=== PATIENT | male | born 1940 | race Caucasian/White ===

== ENCOUNTER 2017-05-17 19:38 | Inpatient (IN) | payer MEDICARE, BC ==
--- NOTE | 2017-05-17 20:29 | EDM.PDOC ---
[id number]: SOB Time Seen by Provider: 05/17/17 20:24 Source of Information: Reports: Patient History Limitations: Reports: No Limitations - History of Present Illness INITIAL COMMENTS - FREE TEXT/NARRATIVE: pt arrived with pain inhis rt chest and he is very sob. Pt had an episode of severe muscle spasm in early May and he was seen in [place]. He has gotten more sob and is not able to fill his lungs. Onset: Gradual Duration: Day(s):, Getting Worse Location: Reports: Chest Associated Symptoms: Reports: Chest Pain, Shortness of Breath Right Chest Pain Score (Numeric/FACES): 8 - Related Data Allergies Allergy/AdvReac Type Severity Reaction Status Date / Time albuterol Allergy Tachycardia Verified 05/17/17 22:43 Home Meds: Home Meds Levothyroxine [Synthroid] 125 mcg PO ASDIRECTED 08/06/14 [History] Cyclobenzaprine [Flexeril] 10 mg PO TID 05/17/17 [History] Diclofenac Potassium [Diclofenac Potassium] 50 mg PO TID 05/17/17 [History] Past Medical History HEENT History: Reports: Impaired Vision Musculoskeletal History: Reports: Arthritis Other Musculoskeletal History: hips. bulging disc back Endocrine/Metabolic History: Reports: Hypothyroidism - Infectious Disease History Infectious Disease History: Reports: Chicken Pox Social & Family History - Tobacco Use Smoking Status *Q: Former Smoker Used Tobacco, but Quit: Yes Month Tobacco Last Used: quit 50years ago Second Hand Smoke Exposure: No - Caffeine Use Caffeine Use: Reports: Coffee - Alcohol Use Days Per Week of Alcohol Use: 0 - Recreational Drug Use Recreational Drug Use: No ED ROS GENERAL - Review of Systems Review Of Systems: See Below Constitutional: Reports: Malaise, Weakness, Other (pain in rt chest) HEENT: Reports: No Symptoms Respiratory: Reports: Shortness of Breath, Pleuritic Chest Pain, Cough Cardiovascular: Reports: No Symptoms Endocrine: Reports: No Symptoms GI/Abdominal: Reports: Other (pt feels like his abdoman is distended) : Reports: No Symptoms Musculoskeletal: Reports: Other (pt had a recent severe muscle spasm on the rt side. ) Skin: Reports: No Symptoms ED EXAM, GENERAL - Physical Exam Exam: See Below Free Text/Narrative:: pt arrived with pain on the rt chest with deep breathing. He is coughing some. He has been very sob. He does not think he has had a fever. Exam Limited By: Other (desats with activity.) General Appearance: Alert, Moderate Distress Ears: Normal TMs Nose: Normal Inspection Throat/Mouth: Normal Inspection Head: Atraumatic Neck: Normal Inspection Respiratory/Chest: Decreased Breath Sounds, Crackles, Splinting Cardiovascular: Regular Rate, Rhythm GI/Abdominal: Soft, Non-Tender, Other (pt feels like his abdoman is distended. ) (Male) Exam: Deferred Rectal (Males) Exam: Deferred Extremities: Normal Inspection, Other ( trace edema) Neurological: Alert, Oriented, Normal Cognition Psychiatric: Normal Affect Course - Vital Signs Last Recorded V/S: Last Vital Signs Temp 37.2 C 05/22/17 03:12 Pulse 94 05/22/17 03:12 Resp 18 05/22/17 03:12 BP 150/81 H 05/22/17 03:12 Pulse Ox 90 L 05/22/17 03:12 - Orders/Labs/Meds Orders: Medication Orders Acetaminophen (Tylenol) 650 mg PO Q4H PRN PRN Reason: PAIN Bisacodyl (Dulcolax) 5 mg PO DAILY PRN PRN Reason: Constipation Docusate Sodium (Colace) 100 mg PO BID PRN PRN Reason: Constipation Docusate Sodium (Colace) 100 mg PO BID [facility] Last Admin: 05/21/17 20:52 Dose: Not Given Admin: 05/21/17 08:05 Dose: 100 mg Admin: 05/20/17 20:42 Dose: 100 mg Admin: 05/20/17 10:34 Dose: Admin: 05/19/17 21:34 Dose: 100 mg Admin: 05/19/17 11:50 Dose: 100 mg Guaifenesin/Codeine Phosphate (Robitussin Ac) 10 ml PO Q4H PRN PRN Reason: Cough Hydromorphone HCl (Dilaudid Footwear Sales Coordinator 15 Mg In Ns 30 Ml) 0 mg IV ASDIRECTED PRN; Protocol PRN Reason: COMMISSIONS COORDINATOR PAIN CONTROL Last Admin: 05/21/17 00:53 Dose: 15 mg Admin: 05/18/17 11:15 Dose: 15 mg Levofloxacin/Dextrose 750 mg/ (Premix) 150 mls @ 100 mls/hr IV Q24H [facility] Last Admin: 05/21/17 21:01 Dose: 100 mls/hr Infusion: 05/20/17 22:12 Dose: 100 mls/hr Admin: 05/20/17 20:42 Dose: 100 mls/hr Infusion: 05/19/17 23:03 Dose: 100 mls/hr Admin: 05/19/17 21:33 Dose: 100 mls/hr Infusion: 05/18/17 22:14 Dose: 100 mls/hr Admin: 05/18/17 20:44 Dose: 100 mls/hr Infusion: 05/17/17 23:04 Dose: 100 mls/hr Admin: 05/17/17 21:34 Dose: 100 mls/hr Dextrose/Lactated Ringer's (Dextrose 5%-Lactated Ringers) 1,000 mls @ 60 mls/ hr IV ASDIRECTED [facility] Last Admin: 05/22/17 01:07 Dose: 60 mls/hr Doxycycline Hyclate 100 mg/ (Sodium Chloride) 100 mls @ 100 mls/hr IV Q12H [facility] Last Admin: 05/21/17 22:32 Dose: 100 mls/hr Admin: 05/21/17 11:02 Dose: 100 mls/hr Levothyroxine Sodium 100 mcg/ (Levothyroxine Sodium 25 mcg) 125 mcg PO DAILY@ 0730 [facility] Last Admin: 05/21/17 08:05 Dose: 125 mcg Admin: 05/20/17 10:34 Dose: Admin: 05/19/17 11:43 Dose: 125 mcg Lorazepam (Ativan) 1 mg IV Q6H PRN PRN Reason: Nausea/Vomiting Magnesium Hydroxide (Milk Of Magnesia) 30 ml PO BID PRN PRN Reason: Constipation Morphine Sulfate (Morphine) 2 mg IVPUSH Q2H PRN PRN Reason: Pain (severe 7-10) Naloxone HCl (Narcan) 0.1 mg IV ASDIRECTED PRN PRN Reason: decreased respiratory rate Ondansetron HCl (Zofran Odt) 4 mg PO Q6H PRN PRN Reason: Nausea able to take PO Ondansetron HCl (Zofran) 4 mg IV Q4H PRN PRN Reason: Nausea/Vomiting Polyethylene Glycol (Miralax) 17 gm PO BID [facility] Last Admin: 05/21/17 20:52 Dose: Not Given Admin: 05/21/17 08:06 Dose: 17 gm Admin: 05/20/17 20:42 Dose: 17 gm Admin: 05/20/17 10:34 Dose: Admin: 05/19/17 21:33 Dose: 17 gm Admin: 05/19/17 11:51 Dose: 17 gm Tizanidine HCl (Zanaflex) 2 mg PO Q6H PRN PRN Reason: Muscle Spasm Last Admin: 05/18/17 21:32 Dose: 2 mg Labs: Laboratory Tests 05/17/17 05/17/17 05/17/17 Range/Units 20:19 20:19 20:19 WBC 27.0 H (4.5-11.0) K/uL RBC 3.74 L (4.30-5.90) M/uL Hgb 11.7 L D (12.0-15.0) g/dL Hct 35.0 L (40.0-54.0) % MCV 94 (80-98) fL MCH 31 (27-31) pg MCHC 33 (32-36) % Plt Count 346 (150-400) K/uL Neut % (Auto) 88 H (36-66) % Lymph % (Auto) 6 L (24-44) % [place] % (Auto) 5 (2-6) % Eos % (Auto) 1 L (2-4) % Baso % (Auto) 0 (0-1) % Puncture Site ABG pH (7.350-7.450) ABG pCO2 (35.0-42.0) mmHg ABG pO2 (75.0-100.0) mmHg ABG HCO3 (22.0-26.0) mmol/L ABG Total CO2 (23.0-27.0) mmol/L ABG O2 Saturation (95.0-98.0) % ABG O2 Content (15.0-23.0) %vol ABG Base Excess mm/L ABG Hemoglobin (13.5-18.0) g/dL ABG Oxyhemoglobin % ABG Carboxyhemoglobin (0.0-1.6) % ABG Methemoglobin % Amadou Test O2 Delivery Device Sodium 131 L (140-148) mmol/L Potassium 4.1 (3.6-5.2) mmol/L Chloride 96 L (100-108) mmol/L Carbon Dioxide 26 (21-32) mmol/L Anion Gap 13.1 (5.0-14.0) mmol/L BUN 30 H (7-18) mg/dL Creatinine 1.7 H D (0.8-1.3) mg/dL Est Cr Clr Drug Dosing 37.54 mL/min Estimated GFR (MDRD) 39 L (>60) Glucose 159 H (74-106) mg/dL Lactic Acid (0.4-2.0) mmol/L Calcium 8.3 L (8.5-10.1) mg/dL Total Bilirubin 1.0 (0.2-1.0) mg/dL AST 30 (15-37) U/L ALT 54 (12-78) U/L Alkaline Phosphatase 134 H D (46-116) U/L Creatine Kinase 12 L (39-308) U/L Troponin I < 0.017 (0.000-0.056) ng/mL C-Reactive Protein (0.0-0.3) mg/dL Kst-P-Byajffsqbdu Pept (5-450) pg/mL Total Protein 6.5 (6.4-8.2) g/dL Albumin 1.8 L (3.4-5.0) g/dL Globulin 4.7 H (2.3-3.5) g/dL Albumin/Globulin Ratio 0.4 L (1.2-2.2) Amylase (25-115) U/L Lipase (73-393) U/L Urine Color Urine Appearance Urine pH (4.5-8.0) Ur Specific [place] (1.008-1.030) Urine Protein (NEGATIVE) mg/dL Urine Glucose (UA) (NEGATIVE) mg/dL Urine Ketones (NEGATIVE) mg/dL Urine Occult Blood (NEGATIVE) Urine Nitrite (NEGAITVE) Urine Bilirubin (NEGATIVE) Urine Urobilinogen (NORMAL) mg/dL Ur Leukocyte Esterase (NEGATIVE) Urine RBC (0-5) Urine WBC (0-5) Ur Epithelial Cells Amorphous Sediment Urine Bacteria Urine Mucus Urine Other 05/17/17 05/17/17 05/17/17 Range/Units 20:19 20:21 20:50 WBC (4.5-11.0) K/uL RBC (4.30-5.90) M/uL Hgb (12.0-15.0) g/dL Hct (40.0-54.0) % MCV (80-98) fL MCH (27-31) pg MCHC (32-36) % Plt Count (150-400) K/uL Neut % (Auto) (36-66) % Lymph % (Auto) (24-44) % Benson % (Auto) (2-6) % Eos % (Auto) (2-4) % Baso % (Auto) (0-1) % Puncture Site Rt.radial ABG pH 7.455 H (7.350-7.450) ABG pCO2 32.3 L (35.0-42.0) mmHg ABG pO2 58.7 L (75.0-100.0) mmHg ABG HCO3 22.3 (22.0-26.0) mmol/L ABG Total CO2 20.1 L (23.0-27.0) mmol/L ABG O2 Saturation 90.0 L (95.0-98.0) % ABG O2 Content 14.8 L (15.0-23.0) %vol ABG Base Excess -0.5 mm/L ABG Hemoglobin 11.8 L (13.5-18.0) g/dL ABG Oxyhemoglobin 88.6 % ABG Carboxyhemoglobin 1.1 (0.0-1.6) % ABG Methemoglobin 0.5 % Amadou Test Passed O2 Delivery Device Room air Sodium (140-148) mmol/L Potassium (3.6-5.2) mmol/L Chloride (100-108) mmol/L Carbon Dioxide (21-32) mmol/L Anion Gap (5.0-14.0) mmol/L BUN (7-18) mg/dL Creatinine (0.8-1.3) mg/dL Est Cr Clr Drug Dosing mL/min Estimated GFR (MDRD) (>60) Glucose (74-106) mg/dL Lactic Acid (0.4-2.0) mmol/L Calcium (8.5-10.1) mg/dL Total Bilirubin (0.2-1.0) mg/dL AST (15-37) U/L ALT (12-78) U/L Alkaline Phosphatase (46-116) U/L Creatine Kinase (39-308) U/L Troponin I (0.000-0.056) ng/mL C-Reactive Protein 28.21 H (0.0-0.3) mg/dL Xbp-G-[id number] Pept 668 H (5-450) pg/mL Total Protein (6.4-8.2) g/dL Albumin (3.4-5.0) g/dL Globulin (2.3-3.5) g/dL Albumin/Globulin Ratio (1.2-2.2) Amylase (25-115) U/L Lipase (73-393) U/L Urine Color Urine Appearance Urine pH (4.5-8.0) Ur Specific [place] (1.008-1.030) Urine Protein (NEGATIVE) mg/dL Urine Glucose (UA) (NEGATIVE) mg/dL Urine Ketones (NEGATIVE) mg/dL Urine Occult Blood (NEGATIVE) Urine Nitrite (NEGAITVE) Urine Bilirubin (NEGATIVE) Urine Urobilinogen (NORMAL) mg/dL Ur Leukocyte Esterase (NEGATIVE) Urine RBC (0-5) Urine WBC (0-5) Ur Epithelial Cells Amorphous Sediment Urine Bacteria Urine Mucus Urine Other 05/17/17 05/17/17 05/17/17 Range/Units 21:14 21:15 22:13 WBC (4.5-11.0) K/uL RBC (4.30-5.90) M/uL Hgb (12.0-15.0) g/dL Hct (40.0-54.0) % MCV (80-98) fL MCH (27-31) pg MCHC (32-36) % Plt Count (150-400) K/uL Neut % (Auto) (36-66) % Lymph % (Auto) (24-44) % Benson % (Auto) (2-6) % Eos % (Auto) (2-4) % Baso % (Auto) (0-1) % Puncture Site ABG pH (7.350-7.450) ABG pCO2 (35.0-42.0) mmHg ABG pO2 (75.0-100.0) mmHg ABG HCO3 (22.0-26.0) mmol/L ABG Total CO2 (23.0-27.0) mmol/L ABG O2 Saturation (95.0-98.0) % ABG O2 Content (15.0-23.0) %vol ABG Base Excess mm/L ABG Hemoglobin (13.5-18.0) g/dL ABG Oxyhemoglobin % ABG Carboxyhemoglobin (0.0-1.6) % ABG Methemoglobin % Amadou Test O2 Delivery Device Sodium (140-148) mmol/L Potassium (3.6-5.2) mmol/L Chloride (100-108) mmol/L Carbon Dioxide (21-32) mmol/L Anion Gap (5.0-14.0) mmol/L BUN (7-18) mg/dL Creatinine (0.8-1.3) mg/dL Est Cr Clr Drug Dosing mL/min Estimated GFR (MDRD) (>60) Glucose (74-106) mg/dL Lactic Acid 1.9 (0.4-2.0) mmol/L Calcium (8.5-10.1) mg/dL Total Bilirubin (0.2-1.0) mg/dL AST (15-37) U/L ALT (12-78) U/L Alkaline Phosphatase (46-116) U/L Creatine Kinase (39-308) U/L Troponin I (0.000-0.056) ng/mL C-Reactive Protein (0.0-0.3) mg/dL Aez-Z-Meacnnmajqb Pept (5-450) pg/mL Total Protein (6.4-8.2) g/dL Albumin (3.4-5.0) g/dL Globulin (2.3-3.5) g/dL Albumin/Globulin Ratio (1.2-2.2) Amylase 16 L (25-115) U/L Lipase 108 (73-393) U/L Urine Color Yellow Urine Appearance Slightly cloudy Urine pH 5.0 (4.5-8.0) Ur Specific [place] 1.020 (1.008-1.030) Urine Protein Negative (NEGATIVE) mg/dL Urine Glucose (UA) Normal (NEGATIVE) mg/dL Urine Ketones Negative (NEGATIVE) mg/dL Urine Occult Blood Negative (NEGATIVE) Urine Nitrite Negative (NEGAITVE) Urine Bilirubin Small (NEGATIVE) Urine Urobilinogen 4 (NORMAL) mg/dL Ur Leukocyte Esterase Moderate (NEGATIVE) Urine RBC 0-5 (0-5) Urine WBC 20-30 H (0-5) Ur Epithelial Cells Few Amorphous Sediment Not seen Urine Bacteria Many Urine Mucus Many Urine Other Meds: Medications Generic Name Dose Route Start Last Admin Trade Name Freq PRN Reason Stop Dose Admin Acetaminophen 650 mg 05/18/17 10:59 Tylenol PO Q4H PRN PAIN Bisacodyl 5 mg 05/17/17 23:27 Dulcolax PO DAILY PRN Constipation Docusate Sodium 100 mg 05/17/17 23:27 Colace PO BID PRN Constipation Docusate Sodium 100 mg 05/19/17 10:00 05/21/17 20:52 Colace PO Not Given BID JING Guaifenesin/Codeine Phosphate 10 ml 05/17/17 23:27 Robitussin Ac PO Q4H PRN Cough Hydromorphone HCl 0 mg 05/18/17 10:57 05/21/17 00:53 Dilaudid Footwear Sales Coordinator 15 Mg In Ns 30 Ml IV 15 mg ASDIRECTED PRN Administration COMMISSIONS COORDINATOR PAIN CONTROL Protocol Levofloxacin/Dextrose 750 mg/ 150 mls @ 100 mls/hr 05/17/17 21:30 05/21/17 21 :01 Premix IV 100 mls/hr Q24H JING Administration Dextrose/Lactated Ringer's 1,000 mls @ 60 mls/hr 05/21/17 07:13 05/22/17 01: 07 Dextrose 5%-Lactated Ringers IV 60 mls/hr ASDIRECTED JING Administration Doxycycline Hyclate 100 mg/ 100 mls @ 100 mls/hr 05/21/17 10:00 05/21/17 22: 32 Sodium Chloride IV 100 mls/hr Q12H JING Administration Levothyroxine Sodium 100 mcg/ 125 mcg 05/19/17 07:30 05/21/17 08:05 Levothyroxine Sodium 25 mcg PO 125 mcg DAILY@0730 JING Administration Lorazepam 1 mg 05/17/17 23:27 Ativan IV Q6H PRN Nausea/Vomiting Magnesium Hydroxide 30 ml 05/19/17 09:18 Milk Of Magnesia PO BID PRN Constipation Morphine Sulfate 2 mg 05/17/17 23:27 Morphine IVPUSH Q2H PRN Pain (severe 7-10) Naloxone HCl 0.1 mg 05/18/17 10:57 Narcan IV ASDIRECTED PRN decreased respiratory rate Ondansetron HCl 4 mg 05/17/17 23:27 Zofran Odt PO Q6H PRN Nausea able to take PO Ondansetron HCl 4 mg 05/17/17 23:27 Zofran IV Q4H PRN Nausea/Vomiting Polyethylene Glycol 17 gm 05/19/17 10:00 05/21/17 20:52 Miralax PO Not Given BID [facility] Tizanidine HCl 2 mg 05/18/17 20:56 05/18/17 21:32 Zanaflex PO 2 mg Q6H PRN Administration Muscle Spasm Discontinued Medications Generic Name Dose Route Start Last Admin Trade Name Freq PRN Reason Stop Dose Admin Bupivacaine HCl/Epinephrine Bitart Confirm 05/18/17 08:30 05/18/17 11:05 Marcaine 0.5%/Epinephrine 1:200,000 Administered 05/18/17 08:31 2 ml Dose Administration 50 ml .ROUTE .STK-MED ONE Bupivacaine HCl/Epinephrine Bitart Confirm 05/19/17 07:59 05/19/17 09:58 Marcaine 0.5%/Epinephrine 1:200,000 Administered 05/19/17 08:00 5 ml Dose Administration 50 ml .ROUTE .STK-MED ONE Bupivacaine HCl/Epinephrine Bitart Confirm 05/20/17 10:15 Marcaine 0.5%/Epinephrine 1:200,000 Administered 05/20/17 10:16 Dose 50 ml .ROUTE .STK-MED ONE Cyclobenzaprine HCl 10 mg 05/18/17 09:00 05/18/17 14:24 Flexeril PO Not Given TID [facility] Dexamethasone Confirm 05/20/17 09:48 Dexamethasone Administered 05/20/17 09:49 Dose 4 mg .ROUTE .STK-MED ONE Fentanyl Confirm 05/18/17 06:33 Sublimaze Administered 05/18/17 06:34 Dose 100 mcg .ROUTE .STK-MED ONE Fentanyl Confirm 05/19/17 09:35 Sublimaze Administered 05/19/17 09:36 Dose 100 mcg .ROUTE .STK-MED ONE Fentanyl Confirm 05/20/17 09:49 Sublimaze Administered 05/20/17 09:50 Dose 250 mcg .ROUTE .STK-MED ONE Fentanyl Confirm 05/20/17 12:05 Sublimaze Administered 05/20/17 12:06 Dose 250 mcg .ROUTE .STK-MED ONE Glycopyrrolate Confirm 05/20/17 09:48 Administered 05/20/17 09:49 Dose 1 mg .ROUTE .STK-MED ONE Sodium Chloride 1,000 mls @ 150 mls/hr 05/17/17 20:30 05/17/17 20:33 Normal Saline IV 150 mls/hr ASDIRECTED JING Administration Lactated Ringer's 1,000 mls @ 125 mls/hr 05/17/17 23:27 05/18/17 00:22 Ringers, Lactated IV 125 mls/hr ASDIRECTED JING Administration Piperacillin Sod/Tazobactam 50 mls @ 100 mls/hr 05/18/17 00:00 05/18/17 06:11 Sod 3.375 gm/ Sodium Chloride IV 100 mls/hr Q6H JING Administration Sodium Chloride Confirm 05/18/17 00:06 05/18/17 00:32 Normal Saline Administered 05/18/17 00:07 Not Given Dose 200 mls @ as directed .ROUTE .STK-MED ONE Sodium Chloride Confirm 05/18/17 00:08 05/18/17 00:24 Normal Saline Administered 05/18/17 00:09 50 ml Dose Administration 100 mls @ as directed .ROUTE .STK-MED ONE Piperacillin/Tazobactam/ 50 mls @ 100 mls/hr 05/18/17 12:00 05/20/17 05:16 Dextrose 3.375 gm/ Premix IV 100 mls/hr Q6H JING Administration Lactated Ringer's 1,000 mls @ 75 mls/hr 05/18/17 12:30 05/19/17 05:39 Ringers, Lactated IV 75 mls/hr ASDIRECTED JING Administration Lactated Ringer's 1,000 mls @ 0 mls/hr 05/19/17 17:00 05/19/17 23:55 Ringers, Lactated IV 100 mls/hr ASDIRECTED JING Infusion KVO Lactated Ringer's 1,000 mls @ 100 mls/hr 05/19/17 23:55 Ringers, Lactated IV ASDIRECTED JING Linezolid 600 mg/ Premix 300 mls @ 300 mls/hr 05/20/17 10:00 05/20/17 10:34 IV 05/20/17 10:59 300 mls/hr ONCALL ONE Administration Linezolid 600 mg/ Premix 300 mls @ 300 mls/hr 05/20/17 22:00 05/20/17 22:38 IV 300 mls/hr Q12H JING Administration Linezolid Confirm 05/20/17 12:20 Zyvox Administered 05/20/17 12:21 Dose 100 mls @ as directed .ROUTE .STK-MED ONE Lactated Ringer's Confirm 05/20/17 12:56 Ringers, Lactated Administered 05/20/17 12:57 Dose 1,000 mls @ as directed .ROUTE .STK-MED ONE Dextrose/Lactated Ringer's 1,000 mls @ 125 mls/hr 05/20/17 15:15 05/21/17 06: 59 Dextrose 5%-Lactated Ringers IV 60 mls/hr ASDIRECTED JING Administration Sodium Chloride 500 mls @ 0 mls/hr 05/20/17 23:44 05/20/17 20:55 Normal Saline IV 05/20/17 23:45 25 mls/hr UPON ONE Administration KVO Ciprofloxacin/Dextrose 400 mg/ 200 mls @ 200 mls/hr 05/21/17 10:00 05/21/17 12:11 Premix IV Not Given Q12H JING Sodium Chloride 80 mls @ 3 mls/sec 05/22/17 04:15 05/22/17 05:07 Normal Saline IV 3 mls/sec ASDIRECTED JING Administration Iopamidol 100 ml 05/22/17 04:15 05/22/17 05:07 Isovue-300 (61%) IV 100 ml . DIRECTED JING Administration Levothyroxine Sodium 125 mcg 05/18/17 21:00 05/18/17 21:31 Synthroid PO 125 mcg DAILY JING Administration Magnesium Citrate 237 ml 05/21/17 09:00 05/21/17 08:05 Citrate Of Magnesia PO 05/21/17 09:01 237 ml ONETIME ONE Administration Methylprednisolone Acetate Confirm 05/20/17 10:32 Depo-Medrol Administered 05/20/17 10:33 Dose 80 mg .ROUTE .STK-MED ONE Midazolam HCl Confirm 05/18/17 06:34 Versed 1 Mg/Ml Administered 05/18/17 06:35 Dose 2 mg .ROUTE .STK-MED ONE Midazolam HCl Confirm 05/20/17 09:49 Versed 1 Mg/Ml Administered 05/20/17 09:50 Dose 2 mg .ROUTE .STK-MED ONE Neostigmine Methylsulfate Confirm 05/20/17 09:48 Neostigmine Administered 05/20/17 09:49 Dose 5 mg .ROUTE .STK-MED ONE Ondansetron HCl Confirm 05/20/17 09:48 Zofran Administered 05/20/17 09:49 Dose 4 mg .ROUTE .STK-MED ONE Oxycodone HCl 5 mg 05/17/17 23:27 05/18/17 01:32 Oxycodone PO 5 mg Q4H PRN Administration Pain (moderate 4-6) Propofol Confirm 05/18/17 06:33 Diprivan 20 Ml Administered 05/18/17 06:34 Dose 200 mg .ROUTE .STK-MED ONE Propofol Confirm 05/19/17 09:35 Diprivan 20 Ml Administered 05/19/17 09:36 Dose 200 mg .ROUTE .STK-MED ONE Propofol Confirm 05/20/17 09:48 Diprivan 20 Ml Administered 05/20/17 09:49 Dose 200 mg .ROUTE .STK-MED ONE Rocuronium [place] Confirm 05/20/17 09:48 Zemuron Administered 05/20/17 09:49 Dose 50 mg .ROUTE .STK-MED ONE Rocuronium [place] Confirm 05/20/17 12:12 Zemuron Administered 05/20/17 12:13 Dose 50 mg .ROUTE .STK-MED ONE Sodium Chloride 10 ml 05/22/17 04:10 05/22/17 05:06 Saline Flush FLUSH 10 ml ASDIRECTED PRN Administration Keep Vein Open Succinylcholine Chloride Confirm 05/20/17 09:48 Succinylcholine In Ns Pf Administered 05/20/17 09:49 Dose 200 mg .ROUTE .STK-MED ONE - Re-Assessments/Exams Free Text/Narrative Re-Assessment/Exam: 05/17/17 21:06 Pt arrived with pain in his rt chest. He hs a large infiltate in the rt lung on chest xray his wbc is 27,000. His crp is 28. Departure - Departure Time of Disposition: 21:07 Disposition: Admitted As Inpatient 67 Condition: Fair Clinical Impression: Empyema lung - Discharge Information
[2017-05-17] MEDS ORDERED: Sodium Chloride 0.9% 1,000 ML IV SCH (20:30)
[2017-05-17] MEDS: Levofloxacin/Dextrose 5%-Water 750 MG in Premix Bag 1 BAG IV SCH (21:34)
[2017-05-17] MEDS ORDERED: Acetaminophen 325 MG Tab PO PRN (23:27)
[2017-05-17] MEDS ORDERED: oxyCODONE 5 MG Tab PO PRN (23:27)
[2017-05-17] MEDS ORDERED: Docusate Sodium 100 MG Cap PO PRN (23:27)
[2017-05-17] MEDS ORDERED: LORazepam 2 MG/ML MDV IV PRN (23:27)
[2017-05-17] MEDS ORDERED: Bisacodyl 5 MG Tab PO PRN (23:27)
[2017-05-17] MEDS ORDERED: Ondansetron 4 MG Tab.DIS PO PRN (23:27)
[2017-05-17] MEDS ORDERED: Ondansetron 4 MG/2 ML SDV IV PRN (23:27)
[2017-05-17] MEDS ORDERED: Codeine/guaiFENesin 100mg-10 MG/5 ML Syrup 10 ML Cup PO PRN (23:27)
[2017-05-17] MEDS ORDERED: Morphine 2 MG/ML Syringe IVPUSH PRN (23:27)
[2017-05-17] MEDS ORDERED: Lactated Ringers 1,000 ML IV SCH (23:27)
[2017-05-18] MEDS ORDERED: Sodium Chloride 0.9% 0 ML ONE (00:06)
[2017-05-18] MEDS ORDERED: Sodium Chloride 0.9% 100 ML ONE (00:08)
[2017-05-18] MEDS: Piperacillin/Tazobactam 3.375 GM in Sodium Chloride 0.9% 50 ML IV SCH ×2 (00:24→06:11)
--- NOTE | 2017-05-18 03:04 | PCM.HP ---
H&P History of Present Illness - General Date of Service: 05/17/17 Admit Problem/Dx: Admission Diagnosis/Problem Admission Diagnosis/Problem Pneumonia Source of Information: Patient, Family () History Limitations: Reports: No Limitations - History of Present Illness Onset of Symptoms: Reports: Gradual Duration of Symptoms: Reports: Day(s): (five), Getting Worse Location: Reports: Chest, Generalized Quality: Reports: Other (shortness of breath with activity) Severity: Severe Improves with: Reports: Rest Worsens with: Reports: Movement Context: Reports: Other (has been sick) Associated Symptoms: Reports: Cough, Loss of Appetite, Nausea/Vomiting, Shortness of Breath, Weakness Right Chest Pain Score (Numeric/FACES): 7 - Related Data Allergies/Adverse Reactions: Allergies Allergy/AdvReac Type Severity Reaction Status Date / Time albuterol Allergy Tachycardia Verified 05/17/17 22:43 Home Medications: Home Meds Levothyroxine [Synthroid] 125 mcg PO DAILY 08/06/14 [History] Cyclobenzaprine [Flexeril] 10 mg PO TID 05/17/17 [History] Diclofenac Potassium [Diclofenac Potassium] 50 mg PO TID 05/17/17 [History] Past Medical History HEENT History: Reports: Impaired Vision Other HEENT History: [place] Musculoskeletal History: Reports: Arthritis Other Musculoskeletal History: hips. 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 Denies: Fever HEENT: Reports: No Symptoms Pulmonary: Reports: Shortness of Breath, Pleuritic Chest Pain, Cough Cardiovascular: Reports: Lightheadedness Gastrointestinal: Reports: Nausea Genitourinary: Reports: No Symptoms Musculoskeletal: Reports: Back Pain (upper right back spasm.) Skin: Reports: No Symptoms Psychiatric: Reports: No Symptoms Neurological: Reports: No Symptoms Hematologic/Lymphatic: Reports: No Symptoms Immunologic: Reports: No Symptoms Exam - Exam Exam: See Below - Vital Signs Vital Signs: Last Vital Signs Temp 36.0 C 05/17/17 23:20 Pulse 86 05/17/17 23:20 Resp 20 05/17/17 23:20 BP 112/67 05/17/17 23:20 Pulse Ox 94 L 05/18/17 01:17 Weight: 82.611 kg - Exam General: Alert, Oriented, 4 HEENT: PERRLA, Hearing Intact, Mucosa Moist & [place], Nares Patent, Normal Nasal Septum, Posterior Pharynx Clear, Conjunctiva Clear, EOMI, EACs Clear, TMs Clear Neck: Supple, Trachea Midline, 2 Lungs: Decreased Breath Sounds (right lung with absent breath sound 2/3 up. ), Crackles (bilateral), Wheezing (bilateral) Cardiovascular: Regular Rate, Regular Rhythm, Normal S1, Normal S2 Abdomen: Normal Bowel Sounds, Soft, Pelvis Stable (Male) Exam: Deferred Rectal (Males) Exam: Deferred Back Exam: Normal Inspection, Full Range of Motion, NT Extremities: 3, Normal Inspection, 10 Skin: Warm, Dry, Intact Neurological: Cranial Nerves Intact, Reflexes Equal Bilateral Neuro Extensive - Mental Status: Alert, Oriented x3, Normal Mood/Affect, Normal Cognition, Memory Intact Psychiatric: Alert, Normal Affect, Normal Mood - Patient Data Result Diagrams: 05/17/17 20:19 05/17/17 20:19 *Q Meaningful Use (ADM) - VTE *Q VTE Criteria *Q: - Stroke *Q Stroke Criteria *Q: - AMI *Q AMI Criteria *Q: - Problem List (1) Pneumonia SNOMED Code(s): 326735486 ICD Code: J18.9 - PNEUMONIA, UNSPECIFIED ORGANISM Status: Acute Priority : High Current Visit: Yes Qualifiers: Pneumonia type: due to unspecified organism Laterality: bilateral (2) Empyema, right SNOMED Code(s): 22340268 ICD Code: J86.9 - PYOTHORAX WITHOUT FISTULA Status: Acute Priority: High Current Visit: Yes Problem List Initiated/Reviewed/Updated: Yes Orders Last 24hrs: Active Orders 24 hr Category Date Time Status Patient Status [ADT] Routine ADT 05/17/17 23:27 Active Cardiac Monitoring [RC] .As Directed Care 05/17/17 23:27 Active Intake and Output [RC] QSHIFT Care 05/17/17 23:27 Active Notify Provider Consults [RC] ASDIRECTED Care 05/17/17 23:27 Active Oxygen Therapy [RC] CONTINUOUS Care 05/17/17 23:27 Active Pulse Oximetry [RC] CONTINUOUS Care 05/17/17 23:27 Active Up With Assistance [RC] ASDIRECTED Care 05/17/17 23:27 Active VTE/DVT Education [RC] Per Unit Routine Care 05/17/17 23:27 Active Vital Signs [RC] Q4H Care 05/17/17 23:27 Active Consult to Physician [CONS] Urgent Cons 05/17/17 23:27 Ordered Consult to Spiritual Care [CONS] Routine Cons 05/17/17 23:27 Active OT Evaluation and Treatment [CONS] Routine Cons 05/17/17 23:27 Active Nothing per Oral After Midnight Diet [DIET] Diet 05/17/17 Breakfast Active BASIC METABOLIC PANEL,BMP [CHEM] AM Lab 05/18/17 05:11 Ordered CBC WITH AUTO DIFF [HEME] AM Lab 05/18/17 05:11 Ordered Acetaminophen [Tylenol] Med 05/17/17 23:27 Active 650 mg PO Q4H PRN Bisacodyl [Dulcolax] Med 05/17/17 23:27 Active 5 mg PO DAILY PRN Codeine/guaiFENesin [Robitussin AC] Med 05/17/17 23:27 Active 10 ml PO Q4H PRN Cyclobenzaprine [Flexeril] Med 05/18/17 09:00 Active 10 mg PO TID Docusate Sodium [Colace] Med 05/17/17 23:27 Active 100 mg PO BID PRN LORazepam [Ativan] Med 05/17/17 23:27 Active 1 mg IV Q6H PRN Lactated Ringers [Ringers, Lactated] 1,000 ml Med 05/17/17 23:27 Active IV ASDIRECTED Morphine Med 05/17/17 23:27 Active 2 mg IVPUSH Q2H PRN Ondansetron [Zofran ODT] Med 05/17/17 23:27 Active 4 mg PO Q6H PRN Ondansetron [Zofran] Med 05/17/17 23:27 Active 4 mg IV Q4H PRN Piperacillin/Tazobactam [Zosyn] 3.375 gm Med 05/18/17 00:00 Active Sodium Chloride 0.9% [Normal Saline] 50 ml IV Q6H oxyCODONE Med 05/17/17 23:27 Active 5 mg PO Q4H PRN Blood Culture x2 Reflex Set [OM.PC] Urgent Ot 05/17/17 23:27 Ordered Give supplemental Oxygen PRN [COMM] Routine Ot 05/17/17 23:27 Ordered Sequential Compression Device [OM.PC] Per Unit Routine Ot 05/17/17 23:27 Ordered Resuscitation Status Routine Resus Stat 05/17/17 22:29 Ordered Medication Orders Acetaminophen (Tylenol) 650 mg PO Q4H PRN PRN Reason: Pain (Mild 1-3)/fever Bisacodyl (Dulcolax) 5 mg PO DAILY PRN PRN Reason: Constipation Cyclobenzaprine HCl (Flexeril) 10 mg PO TID [facility] Docusate Sodium (Colace) 100 mg PO BID PRN PRN Reason: Constipation Guaifenesin/Codeine Phosphate (Robitussin Ac) 10 ml PO Q4H PRN PRN Reason: Cough Levofloxacin/Dextrose 750 mg/ (Premix) 150 mls @ 100 mls/hr IV Q24H [facility] Last Admin: 05/17/17 21:34 Dose: 100 mls/hr Lactated Ringer's (Ringers, Lactated) 1,000 mls @ 125 mls/hr IV ASDIRECTED [facility] Last Admin: 05/18/17 00:22 Dose: 125 mls/hr Piperacillin Sod/Tazobactam (Sod 3.375 gm/ Sodium Chloride) 50 mls @ 100 mls/ hr IV Q6H [facility] Last Admin: 05/18/17 00:24 Dose: 100 mls/hr Lorazepam (Ativan) 1 mg IV Q6H PRN PRN Reason: Nausea/Vomiting Morphine Sulfate (Morphine) 2 mg IVPUSH Q2H PRN PRN Reason: Pain (severe 7-10) Ondansetron HCl (Zofran Odt) 4 mg PO Q6H PRN PRN Reason: Nausea able to take PO Ondansetron HCl (Zofran) 4 mg IV Q4H PRN PRN Reason: Nausea/Vomiting Oxycodone HCl (Oxycodone) 5 mg PO Q4H PRN PRN Reason: Pain (moderate 4-6) Last Admin: 05/18/17 01:32 Dose: 5 mg Assessment/Plan Comment:: ASSESSMENT / PLAN -This is a 76 year old male present to ER with complaints of 5 day history of upper back pain and shortness of breath. ER evaluation shows elevated WBC and chest xray show a large area of infiltrate in right lung. CT of chest show large empyema on the right lung and mild left bautista shift of the heart and mediastinum. Plan Pneumonia with Empyema of right lung -Admit to [address] [place] [address] for further monitoring -IV Fluids for rehydration NS at 125 mL per hour -IV Antibiotic; Levaquin 750mg IV every 24 hours -IV Zoysn 3.375 mg every 6 hours -Advise to notify nurses of any chest pain or other symptoms -continue pulse ox -Oxygen 2l/nc -blood cultures x2 pending -And a.m. labs: CBC, BMP -NPO after midnight -consult to Dr. Jorge Hoffman -planned chest tube placement in am Maintenance issues -Orders home meds: -Nutrition: NPO -Gonzales catheter not indicated at this time -DVT: SCD -PPI; IV Protonix 40mg daily -consult OT for discharge planning -consult spiritual CODE STATUS: full code Admission status: Admit to [address] [place] [address] Admission justification. This patient will be admitted for inpatient services and is medically appropriate meeting medical necessity for inpatient admission as outlined in my documentation. I reasonably expect the patient will require inpatient services that span. Time over 2 midnights. I reasonably expect this patient to be discharged or transferred within 96 hours after admission to the pending sale to [facility]. Disposition; home Primary care provider: Jordin Varner NP, [facility] Hospitalist: Dr. Arango
[2017-05-18] MEDS ORDERED: Propofol 200 MG/20 ML SDV ONE (06:33)
[2017-05-18] MEDS ORDERED: fentaNYL 100 MCG/2 ML SDV ONE (06:33)
[2017-05-18] MEDS ORDERED: Midazolam 1 MG/ML 2 ML SDV ONE (06:34)
[2017-05-18] MEDS ORDERED: Bupivacaine 0.5%/EPINEPHrine 1:200,000 50 ML MDV ONE (08:30)
[2017-05-18] MEDS: Cyclobenzaprine 10 MG Tab PO SCH ×2 (09:31→14:24)
[2017-05-18] MEDS ORDERED: Naloxone 0.4 MG/ML SDV IV PRN (10:57)
[2017-05-18] MEDS ORDERED: Acetaminophen 325 MG Tab PO PRN (10:59)
[2017-05-18] MEDS: HYDROmorphone/Normal Saline 15 MG/30 ML PCA IV PRN (11:15)
[2017-05-18] MEDS: Piperacillin/Tazobactam/Dext 3.375 GM in Premix Bag 1 BAG IV SCH ×3 (12:05→23:40)
--- NOTE | 2017-05-18 12:12 | PCM.PN ---
- General Info Date of Service: 05/18/17 Functional Status: Reports: pain controlled, tolerating diet - Review of Systems General: Denies: Fever Pulmonary: Reports: shortness of breath, pleuritic chest pain, cough Systems Review Comment:: No acute events overnight after patient was admitted for management of right lung empyema. Patient had a right chest tube placed this morning without difficulty. Chest tube currently draining straw-colored fluid with some blood. Gram stain did show a few gram-positive cocci. Clinically he is feeling well other than some pleuritic pain. He does require supplemental oxygen. Still having some spasms of pain in his right upper back and right mid back. He has not had any fevers. - Patient Data Vitals - most recent: Last Vital Signs Temp 36.9 C 05/18/17 11:25 Pulse 102 H 05/18/17 11:56 Resp 19 05/18/17 11:56 BP 122/70 05/18/17 11:56 Pulse Ox 94 L 05/18/17 11:56 Weight - most recent: 82.611 kg I&O - last 24 hours: Intake & Output 05/17/17 05/18/17 05/18/17 22:59 06:59 14:59 Intake Total 776 Output Total 1400 1200 Balance -624 -1200 Lab Results last 24 hrs: Laboratory Results - last 24 hr 05/18/17 05/18/17 Range/Units 05:30 05:30 WBC 25.5 H (4.5-11.0) K/uL RBC 3.88 L (4.30-5.90) M/uL Hgb 12.3 (12.0-15.0) g/dL Hct 36.4 L (40.0-54.0) % MCV 94 (80-98) fL MCH 32 H (27-31) pg MCHC 34 (32-36) % Plt Count 320 (150-400) K/uL Neut % (Auto) 89 H (36-66) % Lymph % (Auto) 5 L (24-44) % [place] % (Auto) 5 (2-6) % Eos % (Auto) 2 (2-4) % Baso % (Auto) 0 (0-1) % Sodium 136 L (140-148) mmol/L Potassium 4.1 (3.6-5.2) mmol/L Chloride 101 (100-108) mmol/L Carbon Dioxide 28 (21-32) mmol/L Anion Gap 11.1 (5.0-14.0) mmol/L BUN 25 H (7-18) mg/dL Creatinine 1.5 H (0.8-1.3) mg/dL Est Cr Clr Drug Dosing TNP Estimated GFR (MDRD) 46 L (>60) Glucose 123 H (74-106) mg/dL Calcium 8.4 L (8.5-10.1) mg/dL [place] Results last 24 hrs: Microbiology 05/18/17 09:25 Gram Stain - Final Pleural Fluid - Pleural Cavity, Right 05/18/17 09:19 Gram Stain - Final Pleural Fluid - Pleural Cavity, Right Med Orders - Current: Current Medications Acetaminophen (Tylenol) 650 mg PO Q4H PRN PRN Reason: PAIN Bisacodyl (Dulcolax) 5 mg PO DAILY PRN PRN Reason: Constipation Cyclobenzaprine HCl (Flexeril) 10 mg PO TID [facility] Last Admin: 05/18/17 09:31 Dose: Not Given Docusate Sodium (Colace) 100 mg PO BID PRN PRN Reason: Constipation Guaifenesin/Codeine Phosphate (Robitussin Ac) 10 ml PO Q4H PRN PRN Reason: Cough Hydromorphone HCl (Dilaudid Filler Block Inserter Remover 15 Mg In Ns 30 Ml) 0 mg IV ASDIRECTED PRN; Protocol PRN Reason: [employer] Last Admin: 05/18/17 11:15 Dose: 15 mg Levofloxacin/Dextrose 750 mg/ (Premix) 150 mls @ 100 mls/hr IV Q24H [facility] Last Admin: 05/17/17 21:34 Dose: 100 mls/hr Piperacillin/Tazobactam/ (Dextrose 3.375 gm/ Premix) 50 mls @ 100 mls/hr IV Q6H [facility] Last Admin: 05/18/17 12:05 Dose: 100 mls/hr Lorazepam (Ativan) 1 mg IV Q6H PRN PRN Reason: Nausea/Vomiting Morphine Sulfate (Morphine) 2 mg IVPUSH Q2H PRN PRN Reason: Pain (severe 7-10) Naloxone HCl (Narcan) 0.1 mg IV ASDIRECTED PRN PRN Reason: decreased respiratory rate Ondansetron HCl (Zofran Odt) 4 mg PO Q6H PRN PRN Reason: Nausea able to take PO Ondansetron HCl (Zofran) 4 mg IV Q4H PRN PRN Reason: Nausea/Vomiting Discontinued Medications Bupivacaine HCl/Epinephrine Bitart (Marcaine 0.5%/Epinephrine 1:200,000) Confirm Administered Dose 50 ml .ROUTE .Open [place]-MED ONE Stop: 05/18/17 08:31 Last Admin: 05/18/17 11:05 Dose: 2 ml Fentanyl (Sublimaze) Confirm Administered Dose 100 mcg .ROUTE .ST-MED ONE Stop: 05/18/17 06:34 Sodium Chloride (Normal Saline) 1,000 mls @ 150 mls/hr IV ASDIRECTED [facility] Last Admin: 05/17/17 20:33 Dose: 150 mls/hr Lactated Ringer's (Ringers, Lactated) 1,000 mls @ 125 mls/hr IV ASDIRECTED [facility] Last Admin: 05/18/17 00:22 Dose: 125 mls/hr Piperacillin Sod/Tazobactam (Sod 3.375 gm/ Sodium Chloride) 50 mls @ 100 mls/ hr IV Q6H [facility] Last Admin: 05/18/17 06:11 Dose: 100 mls/hr Sodium Chloride (Normal Saline) Confirm Administered Dose 200 mls @ as directed .ROUTE .Open [place]-MED ONE Stop: 05/18/17 00:07 Last Admin: 05/18/17 00:32 Dose: Not Given Sodium Chloride (Normal Saline) Confirm Administered Dose 100 mls @ as directed .ROUTE .Open [place]-MED ONE Stop: 05/18/17 00:09 Last Admin: 05/18/17 00:24 Dose: 50 ml Midazolam HCl (Versed 1 Mg/Ml) Confirm Administered Dose 2 mg .ROUTE .[facility] Stop: 05/18/17 06:35 Oxycodone HCl (Oxycodone) 5 mg PO Q4H PRN PRN Reason: Pain (moderate 4-6) Last Admin: 05/18/17 01:32 Dose: 5 mg Propofol (Diprivan 20 Ml) Confirm Administered Dose 200 mg .ROUTE .Open [facility]-MED ONE Stop: 05/18/17 06:34 - Exam Quality Assessment: supplemental oxygen General: alert, oriented, cooperative, no acute distress Neck: supple Lungs: Clear to auscultation (on the left), Normal respiratory effort, Decreased breath sounds (lower 2/3 of right lung), Rales (few right midlung ). No: Wheezing Cardiovascular: Regular Rate, Regular Rhythm Abdomen: bowel sounds present, soft, no distension Extremities: no edema, no cyanosis Skin: warm, dry Psy/Mental Status: alert, normal affect - Problem List & Annotations (1) Empyema, right SNOMED Code(s): 84546826 Code(s): J86.9 - PYOTHORAX WITHOUT FISTULA Status: Acute Priority: High Current Visit: Yes - Problem List Review Problem List Initiated/Reviewed/Updated: Yes - My Orders Last 24 Hours: My Active Orders 05/18/17 09:19 CULTURE ANAEROBIC [RM] Routine CULTURE WOUND + SMEAR [RM] Routine 05/18/17 12:09 Discontinue Telemetry Monitoring [Cardiac Monitoring Discontinue] [RC] Click to Edit 05/18/17 12:30 Lactated Ringers [Ringers, Lactated] 1,000 ml IV ASDIRECTED 05/19/17 05:00 BASIC METABOLIC PANEL,BMP [CHEM] Timed CBC W/O DIFF,HEMOGRAM [HEME] Timed (1) - Plan Plan:: ASSESSMENT / PLAN Empyema of right lung - large size of the empyema with stable vital signs. Status post chest tube placement this morning. Gram stain showed a few gram- positive cocci. He has been afebrile. Post chest tube x-ray did not show significant improvement in the empyema or aeration of the right lung. No recent infection or events that he can recall that would explain such a large empyema. Input and assistance from Dr. Hoffman is appreciated. -Gentle IV fluids -Antibiotic coverage with levofloxacin and Pip/Tazo -Follow-up cultures -continue pulse ox -Supplement oxygen as needed -Follow-up chest x-ray in the morning -Chest tube management per surgical team Maintenance issues -Nutrition: Regular diet -Gonzales catheter not indicated at this time -DVT: SCD -GI: PPI Disposition; anticipate discharge to home after the hospital stay Primary care provider: Jordin Varner NP, [facility] Erick Arango M.D.
[2017-05-18] MEDS: Lactated Ringers 1,000 ML IV SCH (13:36)
[2017-05-18] MEDS: Levofloxacin/Dextrose 5%-Water 750 MG in Premix Bag 1 BAG IV SCH (20:44)
[2017-05-18] MEDS ORDERED: Levothyroxine 50 MCG Tab PO SCH (21:00)
[2017-05-18] MEDS: tiZANidine 2 MG Tab PO PRN (21:32)
[2017-05-19] MEDS: Piperacillin/Tazobactam/Dext 3.375 GM in Premix Bag 1 BAG IV SCH ×4 (05:39→23:55)
[2017-05-19] MEDS: Lactated Ringers 1,000 ML IV SCH (05:39)
[2017-05-19] MEDS ORDERED: Bupivacaine 0.5%/EPINEPHrine 1:200,000 50 ML MDV ONE (07:59)
--- NOTE | 2017-05-19 08:00 | PN ---
DATE OF SERVICE: 05/19/2017 SUBJECTIVE: George is a 76-year-old male. He had a chest tube placed on 05/18/2017 and he has a pneumothorax noted above the insertion of the chest tube. Vital signs have been stable. He has been afebrile. REVIEW OF SYSTEMS: Remainder of review of systems negative for any pertinent positives and negatives. OBJECTIVE: GENERAL: George Blackwell is a 76-year-old male. He is alert, orientated, sitting up in bed. VITAL SIGNS: TPR is 98, 93, 16, pulse by oximetry is 94% on 2 L. HEENT: Negative. NECK: Supple. HEART: Regular rate and rhythm. LUNGS: Reveal decreased breath sounds on the right. Chest tube dressing dry and intact. His chest tube put out 1010 mL of a light pink serous drainage. ABDOMEN: Soft and nontender. EXTREMITIES: Without peripheral edema. ASSESSMENT: Tube thoracostomy for right empyema, 05/18/2017. PLAN: 1. Ultrasound of right chest as soon as possible. Call Dr. Hoffman when done. 2. N.p.o. 3. Have consent signed for insertion of right chest tube, IV local sedation, case to follow Jorge Hoffman MD. Will continue good pulmonary toilet. Evaluate p.r.n. or in a.m. Ayleen Sharma PA-C /[id number]
[2017-05-19] MEDS ORDERED: Magnesium Hydroxide 400 MG/5 ML Susp 30 ML Cup PO PRN (09:18)
[2017-05-19] MEDS ORDERED: fentaNYL 100 MCG/2 ML SDV ONE (09:35)
[2017-05-19] MEDS ORDERED: Propofol 200 MG/20 ML SDV ONE (09:35)
--- NOTE | 2017-05-19 10:48 | PCM.PN ---
- General Info Date of Service: 05/19/17 Functional Status: Reports: pain controlled, tolerating diet, urinating - Review of Systems General: Reports: No Symptoms Pulmonary: Reports: pleuritic chest pain. Denies: sputum, hemoptysis, wheezing Cardiovascular: Reports: No Symptoms Gastrointestinal: Reports: No symptoms Systems Review Comment:: Mr. Blackwell is a 76-year-old gentleman who was admitted because of symptoms of shortness of breath and cough. On evaluation was found to have a large loculated pleural effusion involving most of the right chest. Fluid thus far appears to be a transudate, chest tube was placed yesterday by Dr. Hoffman. There is been modest improvement in aeration since placement of the first chest tube but there is a significant amount of fluid that is not yet drained. Current plan is to proceed with placement of a second chest tube this morning. Vital signs have been stable and he has remained afebrile, pain control has been good. - Patient Data Vitals - most recent: Last Vital Signs Temp 98.2 F 05/19/17 10:30 Pulse 101 H 05/19/17 10:30 Resp 14 05/19/17 10:30 BP 114/48 L 05/19/17 10:30 Pulse Ox 93 L 05/19/17 10:30 Weight - most recent: 182 lb 2.017 oz I&O - last 24 hours: Intake & Output 05/18/17 05/19/17 05/19/17 22:59 06:59 14:59 Intake Total 1329 789 Output Total 550 1410 225 Balance 779 621 -225 Lab Results last 24 hrs: Laboratory Results - last 24 hr 05/19/17 05/19/17 Range/Units 04:30 04:30 WBC 24.8 H (4.5-11.0) K/uL RBC 3.78 L (4.30-5.90) M/uL Hgb 11.9 L (12.0-15.0) g/dL Hct 36.4 L (40.0-54.0) % MCV 96 (80-98) fL MCH 32 H (27-31) pg MCHC 33 (32-36) % Plt Count 323 (150-400) K/uL Sodium 136 L (140-148) mmol/L Potassium 4.6 (3.6-5.2) mmol/L Chloride 102 (100-108) mmol/L Carbon Dioxide 29 (21-32) mmol/L Anion Gap 9.6 (5.0-14.0) mmol/L BUN 18 (7-18) mg/dL Creatinine 1.2 (0.8-1.3) mg/dL Est Cr Clr Drug Dosing 53.01 mL/min Estimated GFR (MDRD) 59 L (>60) Glucose 113 H (74-106) mg/dL Calcium 8.6 (8.5-10.1) mg/dL [place] Results last 24 hrs: Microbiology 05/18/17 09:25 Gram Stain - Final Pleural Fluid - Pleural Cavity, Right Wound Culture - Preliminary NO GROWTH AFTER 1 DAY Anaerobic Culture - Preliminary NO GROWTH AFTER 1 DAY 05/18/17 09:19 Gram Stain - Final Pleural Fluid - Pleural Cavity, Right Wound Culture - Preliminary NO GROWTH AFTER 1 DAY Anaerobic Culture - Preliminary NO GROWTH AFTER 1 DAY Med Orders - Current: Current Medications Acetaminophen (Tylenol) 650 mg PO Q4H PRN PRN Reason: PAIN Bisacodyl (Dulcolax) 5 mg PO DAILY PRN PRN Reason: Constipation Docusate Sodium (Colace) 100 mg PO BID PRN PRN Reason: Constipation Docusate Sodium (Colace) 100 mg PO BID [facility] Guaifenesin/Codeine Phosphate (Robitussin Ac) 10 ml PO Q4H PRN PRN Reason: Cough Hydromorphone HCl (Dilaudid Substance Abuse Nurse 15 Mg In Ns 30 Ml) 0 mg IV ASDIRECTED PRN; Protocol PRN Reason: TUBE [employer]ER PAIN CONTROL Last Admin: 05/18/17 11:15 Dose: 15 mg Levofloxacin/Dextrose 750 mg/ (Premix) 150 mls @ 100 mls/hr IV Q24H [facility] Last Admin: 05/18/17 20:44 Dose: 100 mls/hr Piperacillin/Tazobactam/ (Dextrose 3.375 gm/ Premix) 50 mls @ 100 mls/hr IV Q6H [facility] Last Admin: 05/19/17 05:39 Dose: 100 mls/hr Lactated Ringer's (Ringers, Lactated) 1,000 mls @ 75 mls/hr IV ASDIRECTED [facility] Last Admin: 05/19/17 05:39 Dose: 75 mls/hr Levothyroxine Sodium 100 mcg/ (Levothyroxine Sodium 25 mcg) 125 mcg PO DAILY@ 0730 [facility] Lorazepam (Ativan) 1 mg IV Q6H PRN PRN Reason: Nausea/Vomiting Magnesium Hydroxide (Milk Of Magnesia) 30 ml PO BID PRN PRN Reason: Constipation Morphine Sulfate (Morphine) 2 mg IVPUSH Q2H PRN PRN Reason: Pain (severe 7-10) Naloxone HCl (Narcan) 0.1 mg IV ASDIRECTED PRN PRN Reason: decreased respiratory rate Ondansetron HCl (Zofran Odt) 4 mg PO Q6H PRN PRN Reason: Nausea able to take PO Ondansetron HCl (Zofran) 4 mg IV Q4H PRN PRN Reason: Nausea/Vomiting Polyethylene Glycol (Miralax) 17 gm PO BID [facility] Tizanidine HCl (Zanaflex) 2 mg PO Q6H PRN PRN Reason: Muscle Spasm Last Admin: 05/18/17 21:32 Dose: 2 mg Discontinued Medications Bupivacaine HCl/Epinephrine Bitart (Marcaine 0.5%/Epinephrine 1:200,000) Confirm Administered Dose 50 ml .ROUTE .STK-MED ONE Stop: 05/18/17 08:31 Last Admin: 05/18/17 11:05 Dose: 2 ml Bupivacaine HCl/Epinephrine Bitart (Marcaine 0.5%/Epinephrine 1:200,000) Confirm Administered Dose 50 ml .ROUTE .STK-MED ONE Stop: 05/19/17 08:00 Cyclobenzaprine HCl (Flexeril) 10 mg PO TID [facility] Last Admin: 05/18/17 14:24 Dose: Not Given Fentanyl (Sublimaze) Confirm Administered Dose 100 mcg .ROUTE .STK-MED ONE Stop: 05/18/17 06:34 Fentanyl (Sublimaze) Confirm Administered Dose 100 mcg .ROUTE .STK-MED ONE Stop: 05/19/17 09:36 Sodium Chloride (Normal Saline) 1,000 mls @ 150 mls/hr IV ASDIRECTED [facility] Last Admin: 05/17/17 20:33 Dose: 150 mls/hr Lactated Ringer's (Ringers, Lactated) 1,000 mls @ 125 mls/hr IV ASDIRECTED [facility] Last Admin: 05/18/17 00:22 Dose: 125 mls/hr Piperacillin Sod/Tazobactam (Sod 3.375 gm/ Sodium Chloride) 50 mls @ 100 mls/ hr IV Q6H [facility] Last Admin: 05/18/17 06:11 Dose: 100 mls/hr Sodium Chloride (Normal Saline) Confirm Administered Dose 200 mls @ as directed .ROUTE .STK-MED ONE Stop: 05/18/17 00:07 Last Admin: 05/18/17 00:32 Dose: Not Given Sodium Chloride (Normal Saline) Confirm Administered Dose 100 mls @ as directed .ROUTE .STK-MED ONE Stop: 05/18/17 00:09 Last Admin: 05/18/17 00:24 Dose: 50 ml Levothyroxine Sodium (Synthroid) 125 mcg PO DAILY [facility] Last Admin: 05/18/17 21:31 Dose: 125 mcg Midazolam HCl (Versed 1 Mg/Ml) Confirm Administered Dose 2 mg .ROUTE .STK-MED ONE Stop: 05/18/17 06:35 Oxycodone HCl (Oxycodone) 5 mg PO Q4H PRN PRN Reason: Pain (moderate 4-6) Last Admin: 05/18/17 01:32 Dose: 5 mg Propofol (Diprivan 20 Ml) Confirm Administered Dose 200 mg .ROUTE .STK-MED ONE Stop: 05/18/17 06:34 Propofol (Diprivan 20 Ml) Confirm Administered Dose 200 mg .ROUTE .STK-MED ONE Stop: 05/19/17 09:36 - Exam Quality Assessment: supplemental oxygen, DVT prophylaxis General: alert, oriented, cooperative, mild distress Lungs: Clear to auscultation, Normal respiratory effort, Decreased breath sounds (Right chest) Cardiovascular: Regular Rate, Regular Rhythm, No Murmurs Abdomen: bowel sounds present, soft, no tenderness, no distension Extremities: no edema Skin: warm, dry, intact - Problem List Review Problem List Initiated/Reviewed/Updated: Yes - My Orders Last 24 Hours: My Active Orders 05/19/17 09:18 Magnesium Hydroxide [Milk of Magnesia] 30 ml PO BID PRN 05/19/17 10:00 Docusate Sodium [Colace] 100 mg PO BID Polyethylene Glycol 3350 [MiraLAX] 17 gm PO BID 05/20/17 05:00 Chest 1V Frontal [CR] Timed BASIC METABOLIC PANEL,BMP [CHEM] Timed CBC WITH AUTO DIFF [HEME] Timed MAGNESIUM [CHEM] Timed - Plan Plan:: ASSESSMENT / PLAN Empyema of right lung - large size of the empyema with stable vital signs. Chest tube placed yesterday morning with modest improvement in aeration over the past 24 hours. -Second chest tube placement this morning by Dr. Hoffman -Saline lock IV -Antibiotic coverage with levofloxacin and Pip/Tazo -Follow-up cultures -continue pulse ox -Supplement oxygen as needed -Follow-up chest x-ray in the morning -Chest tube management per surgical team Maintenance issues -Nutrition: Regular diet -Gonzales catheter not indicated at this time -DVT: SCD -GI: PPI Disposition; anticipate discharge to home after the hospital stay Primary care provider: Jordin Varner NP, [facility]
[2017-05-19] MEDS: Levothyroxine 100 MCG, Levothyroxine 25 MCG PO SCH ×2 (11:43)
[2017-05-19] MEDS: Docusate Sodium 100 MG Cap PO SCH ×2 (11:50→21:34)
[2017-05-19] MEDS: Polyethylene Glycol 3350 Powder 17 GM Packet PO SCH ×2 (11:51→21:33)
--- NOTE | 2017-05-19 12:12 | CR ---
Chest 1V Frontal INDICATION: sob FINDINGS: Comparison 08/06/2014. Interval development of a large right pleural effusion with associat ed compressive atelectasis. Left lung remains clear.
--- NOTE | 2017-05-19 12:58 | CR ---
Chest 1V Frontal INDICATION: POST CHEST TUBE INSERTION FINDINGS: Comparison exam from 05/17/2017. Interval placement of a single right chest tube. Large righ t pleural effusion. Shallow inspiration.
--- NOTE | 2017-05-19 12:59 | CR ---
Chest 1V Frontal INDICATION: chest tube in place FINDINGS: Comparison from 05/18/2017. Single right chest tube in place. Mild interval decrease in size of a partially loculated large right pleural effusion. Left lung remains clear.
--- NOTE | 2017-05-19 13:00 | CR ---
Chest 1V Frontal INDICATION: chest tube placement-xray postop in par-will call FINDINGS: Comparison from earlier today. A second chest tube has been placed. No change in the large partially loculated right pleural effusion. Shallow inspiration.
[2017-05-19] MEDS ORDERED: Lactated Ringers 1,000 ML IV SCH ×2 (17:00→23:55)
[2017-05-19] MEDS: Levofloxacin/Dextrose 5%-Water 750 MG in Premix Bag 1 BAG IV SCH (21:33)
[2017-05-20] MEDS: Piperacillin/Tazobactam/Dext 3.375 GM in Premix Bag 1 BAG IV SCH (05:16)
[2017-05-20] MEDS ORDERED: Succinylcholine/Normal Saline 200 MG/10 ML Syringe ONE (09:48)
[2017-05-20] MEDS ORDERED: Neostigmine Methylsulfate 1 MG/ML 5 ML Syringe ONE (09:48)
[2017-05-20] MEDS ORDERED: Rocuronium 50 MG/5 ML Vial ONE ×2 (09:48→12:12)
[2017-05-20] MEDS ORDERED: Ondansetron 4 MG/2 ML SDV ONE (09:48)
[2017-05-20] MEDS ORDERED: Propofol 200 MG/20 ML SDV ONE (09:48)
[2017-05-20] MEDS ORDERED: Dexamethasone 4 MG/ML SDV ONE (09:48)
[2017-05-20] MEDS ORDERED: Midazolam 1 MG/ML 2 ML SDV ONE (09:49)
[2017-05-20] MEDS ORDERED: fentaNYL 250 MCG/5 ML SDV ONE ×2 (09:49→12:05)
[2017-05-20] MEDS ORDERED: Linezolid 600 MG in Premix Bag 1 BAG IV ONE (10:00)
[2017-05-20] MEDS ORDERED: Bupivacaine 0.5%/EPINEPHrine 1:200,000 50 ML MDV ONE (10:15)
[2017-05-20] MEDS ORDERED: methylPREDNISolone Acetate 40 MG/ML SDV ONE (10:32)
[2017-05-20] MEDS: Docusate Sodium 100 MG Cap PO SCH ×2 (10:34→20:42)
[2017-05-20] MEDS: Levothyroxine 100 MCG, Levothyroxine 25 MCG PO SCH ×2 (10:34)
[2017-05-20] MEDS: Polyethylene Glycol 3350 Powder 17 GM Packet PO SCH ×2 (10:34→20:42)
[2017-05-20] MEDS ORDERED: Lactated Ringers 1,000 ML ONE (12:56)
--- NOTE | 2017-05-20 14:55 | CR ---
Chest 1V Frontal INDICATION: CHEST TUBE PLACEMENT IN OR FINDINGS: Comparison exam from earlier today. The right chest tubes have been repositioned, with the addition of a third chest tube. New ETT with tip deep into the right mainstem bronchus. Subcutaneou s emphysema right chest wall. Interval decrease in size of the partially loculated right pleural eff usion.
--- NOTE | 2017-05-20 15:35 | PCM.PN ---
- General Info Date of Service: 05/20/17 Functional Status: Reports: pain controlled, tolerating diet - Review of Systems General: Reports: Weakness. Denies: Fever, Chills Pulmonary: Reports: shortness of breath. Denies: pleuritic chest pain, cough, sputum, hemoptysis Cardiovascular: Reports: No Symptoms Gastrointestinal: Reports: No symptoms Neurological: Reports: No Symptoms Systems Review Comment:: This patient has been stable since yesterday, this afternoon was brought to the operating room and underwent a thorascopic procedure by Dr. Hoffman. A decortication was performed and follow-up chest x-ray shows significant improvement in aeration. Vital signs have been stable and he has remained afebrile. Cultures are growing out gram-positive cocci which appears to be coagulase-negative. Final ID and sensitivities are pending. - Patient Data Vitals - most recent: Last Vital Signs Temp 96.7 F 05/20/17 15:05 Pulse 94 05/20/17 15:05 Resp 12 05/20/17 15:05 BP 154/94 H 05/20/17 15:05 Pulse Ox 89 L 05/20/17 15:05 Weight - most recent: 182 lb 2.017 oz I&O - last 24 hours: Intake & Output 05/20/17 05/20/17 05/20/17 06:59 14:59 22:59 Intake Total 1059 300 Output Total 1092 1100 Balance -33 -800 Lab Results last 24 hrs: Laboratory Results - last 24 hr 05/20/17 05/20/17 05/20/17 Range/Units 04:32 04:32 14:22 WBC 20.5 H (4.5-11.0) K/uL RBC 3.69 L (4.30-5.90) M/uL Hgb 11.6 L (12.0-15.0) g/dL Hct 35.6 L (40.0-54.0) % MCV 97 (80-98) fL MCH 31 (27-31) pg MCHC 33 (32-36) % Plt Count 349 (150-400) K/uL Add Manual Diff Yes Neutrophils % (Manual) 79 H (36-66) % Band Neutrophils % 5 (5-11) % Lymphocytes % (Manual) 9 L (24-44) % Monocytes % (Manual) 6 (2-6) % Eosinophils % (Manual) 1 L (2-4) % Puncture Site Lt radial ABG pH 7.339 L (7.350-7.450) ABG pCO2 52.2 H (35.0-42.0) mmHg ABG pO2 76.9 (75.0-100.0) mmHg ABG HCO3 27.4 H (22.0-26.0) mmol/L ABG Total CO2 25.1 (23.0-27.0) mmol/L ABG O2 Saturation 93.7 L (95.0-98.0) % ABG O2 Content 15.8 (15.0-23.0) %vol ABG Base Excess 1.4 mm/L ABG Hemoglobin 12.1 L (13.5-18.0) g/dL ABG Oxyhemoglobin 92.4 % ABG Carboxyhemoglobin 0.7 (0.0-1.6) % ABG Methemoglobin 0.7 % Amadou Test Pass O2 Delivery Device Simple mask Sodium 135 L (140-148) mmol/L Potassium 4.3 (3.6-5.2) mmol/L Chloride 100 (100-108) mmol/L Carbon Dioxide 30 (21-32) mmol/L Anion Gap 9.3 (5.0-14.0) mmol/L BUN 13 (7-18) mg/dL Creatinine 1.2 (0.8-1.3) mg/dL Est Cr Clr Drug Dosing 53.01 mL/min Estimated GFR (MDRD) 59 L (>60) Glucose 122 H (74-106) mg/dL Calcium 8.6 (8.5-10.1) mg/dL Magnesium 2.0 (1.8-2.4) mg/dL [place] Results last 24 hrs: Microbiology 05/20/17 14:46 Gram Stain - Final Pleural Fluid - Pleural Cavity, Right 05/18/17 09:25 Gram Stain - Final Pleural Fluid - Pleural Cavity, Right Wound Culture - Preliminary NO GROWTH AFTER 2 DAYS Anaerobic Culture - Preliminary NO GROWTH AFTER 2 DAYS 05/18/17 09:19 Gram Stain - Final Pleural Fluid - Pleural Cavity, Right Wound Culture - Preliminary Anaerobic Culture - Preliminary NO GROWTH AFTER 2 DAYS Med Orders - Current: Current Medications Acetaminophen (Tylenol) 650 mg PO Q4H PRN PRN Reason: PAIN Bisacodyl (Dulcolax) 5 mg PO DAILY PRN PRN Reason: Constipation Docusate Sodium (Colace) 100 mg PO BID PRN PRN Reason: Constipation Docusate Sodium (Colace) 100 mg PO BID [facility] Last Admin: 05/20/17 10:34 Dose: Not Given Guaifenesin/Codeine Phosphate (Robitussin Ac) 10 ml PO Q4H PRN PRN Reason: Cough Hydromorphone HCl (Dilaudid Operating Systems Specialist 15 Mg In Ns 30 Ml) 0 mg IV ASDIRECTED PRN; Protocol PRN Reason: QUAIL F[employer]ER PAIN CONTROL Last Admin: 05/18/17 11:15 Dose: 15 mg Levofloxacin/Dextrose 750 mg/ (Premix) 150 mls @ 100 mls/hr IV Q24H [facility] Last Admin: 05/19/17 21:33 Dose: 100 mls/hr Linezolid 600 mg/ Premix 300 mls @ 300 mls/hr IV Q12H [facility] Dextrose/Lactated Ringer's (Dextrose 5%-Lactated Ringers) 1,000 mls @ 125 mls/ hr IV ASDIRECTED [facility] Levothyroxine Sodium 100 mcg/ (Levothyroxine Sodium 25 mcg) 125 mcg PO DAILY@ 0730 [facility] Last Admin: 05/20/17 10:34 Dose: Not Given Lorazepam (Ativan) 1 mg IV Q6H PRN PRN Reason: Nausea/Vomiting Magnesium Hydroxide (Milk Of Magnesia) 30 ml PO BID PRN PRN Reason: Constipation Morphine Sulfate (Morphine) 2 mg IVPUSH Q2H PRN PRN Reason: Pain (severe 7-10) Naloxone HCl (Narcan) 0.1 mg IV ASDIRECTED PRN PRN Reason: decreased respiratory rate Ondansetron HCl (Zofran Odt) 4 mg PO Q6H PRN PRN Reason: Nausea able to take PO Ondansetron HCl (Zofran) 4 mg IV Q4H PRN PRN Reason: Nausea/Vomiting Polyethylene Glycol (Miralax) 17 gm PO BID [facility] Last Admin: 05/20/17 10:34 Dose: Not Given Tizanidine HCl (Zanaflex) 2 mg PO Q6H PRN PRN Reason: Muscle Spasm Last Admin: 05/18/17 21:32 Dose: 2 mg Discontinued Medications Bupivacaine HCl/Epinephrine Bitart (Marcaine 0.5%/Epinephrine 1:200,000) Confirm Administered Dose 50 ml .ROUTE .STK-MED ONE Stop: 05/18/17 08:31 Last Admin: 05/18/17 11:05 Dose: 2 ml Bupivacaine HCl/Epinephrine Bitart (Marcaine 0.5%/Epinephrine 1:200,000) Confirm Administered Dose 50 ml .ROUTE .STK-MED ONE Stop: 05/19/17 08:00 Last Admin: 05/19/17 09:58 Dose: 5 ml Bupivacaine HCl/Epinephrine Bitart (Marcaine 0.5%/Epinephrine 1:200,000) Confirm Administered Dose 50 ml .ROUTE .STK-MED ONE Stop: 05/20/17 10:16 Cyclobenzaprine HCl (Flexeril) 10 mg PO TID [facility] Last Admin: 05/18/17 14:24 Dose: Not Given Dexamethasone (Dexamethasone) Confirm Administered Dose 4 mg .ROUTE .STK-MED ONE Stop: 05/20/17 09:49 Fentanyl (Sublimaze) Confirm Administered Dose 100 mcg .ROUTE .STK-MED ONE Stop: 05/18/17 06:34 Fentanyl (Sublimaze) Confirm Administered Dose 100 mcg .ROUTE .STK-MED ONE Stop: 05/19/17 09:36 Fentanyl (Sublimaze) Confirm Administered Dose 250 mcg .ROUTE .STK-MED ONE Stop: 05/20/17 09:50 Fentanyl (Sublimaze) Confirm Administered Dose 250 mcg .ROUTE .STK-MED ONE Stop: 05/20/17 12:06 Glycopyrrolate () Confirm Administered Dose 1 mg .ROUTE .STK-MED ONE Stop: 05/20/17 09:49 Sodium Chloride (Normal Saline) 1,000 mls @ 150 mls/hr IV ASDIRECTED [facility] Last Admin: 05/17/17 20:33 Dose: 150 mls/hr Lactated Ringer's (Ringers, Lactated) 1,000 mls @ 125 mls/hr IV ASDIRECTED [facility] Last Admin: 05/18/17 00:22 Dose: 125 mls/hr Piperacillin Sod/Tazobactam (Sod 3.375 gm/ Sodium Chloride) 50 mls @ 100 mls/ hr IV Q6H [facility] Last Admin: 05/18/17 06:11 Dose: 100 mls/hr Sodium Chloride (Normal Saline) Confirm Administered Dose 200 mls @ as directed .ROUTE .STK-MED ONE Stop: 05/18/17 00:07 Last Admin: 05/18/17 00:32 Dose: Not Given Sodium Chloride (Normal Saline) Confirm Administered Dose 100 mls @ as directed .ROUTE .STK-MED ONE Stop: 05/18/17 00:09 Last Admin: 05/18/17 00:24 Dose: 50 ml Piperacillin/Tazobactam/ (Dextrose 3.375 gm/ Premix) 50 mls @ 100 mls/hr IV Q6H [facility] Last Admin: 05/20/17 05:16 Dose: 100 mls/hr Lactated Ringer's (Ringers, Lactated) 1,000 mls @ 75 mls/hr IV ASDIRECTED [facility] Last Admin: 05/19/17 05:39 Dose: 75 mls/hr Lactated Ringer's (Ringers, Lactated) 1,000 mls @ 0 mls/hr IV ASDIRECTED [facility] PRN Reason: KVO Last Infusion: 05/19/17 23:55 Dose: 100 mls/hr Lactated Ringer's (Ringers, Lactated) 1,000 mls @ 100 mls/hr IV ASDIRECTED [facility] Linezolid 600 mg/ Premix 300 mls @ 300 mls/hr IV ONCALL ONE Stop: 05/20/17 10:59 Last Admin: 05/20/17 10:34 Dose: 300 mls/hr Linezolid (Zyvox) Confirm Administered Dose 100 mls @ as directed .ROUTE .STK- MED ONE Stop: 05/20/17 12:21 Lactated Ringer's (Ringers, Lactated) Confirm Administered Dose 1,000 mls @ as directed .ROUTE .STK-MED ONE Stop: 05/20/17 12:57 Levothyroxine Sodium (Synthroid) 125 mcg PO DAILY [facility] Last Admin: 05/18/17 21:31 Dose: 125 mcg Methylprednisolone Acetate (Depo-Medrol) Confirm Administered Dose 80 mg .ROUTE .STK-MED ONE Stop: 05/20/17 10:33 Midazolam HCl (Versed 1 Mg/Ml) Confirm Administered Dose 2 mg .ROUTE .STK-MED ONE Stop: 05/18/17 06:35 Midazolam HCl (Versed 1 Mg/Ml) Confirm Administered Dose 2 mg .ROUTE .STK-MED ONE Stop: 05/20/17 09:50 Neostigmine Methylsulfate (Neostigmine) Confirm Administered Dose 5 mg .ROUTE .STK-MED ONE Stop: 05/20/17 09:49 Ondansetron HCl (Zofran) Confirm Administered Dose 4 mg .ROUTE .STK-MED ONE Stop: 05/20/17 09:49 Oxycodone HCl (Oxycodone) 5 mg PO Q4H PRN PRN Reason: Pain (moderate 4-6) Last Admin: 05/18/17 01:32 Dose: 5 mg Propofol (Diprivan 20 Ml) Confirm Administered Dose 200 mg .ROUTE .STK-MED ONE Stop: 05/18/17 06:34 Propofol (Diprivan 20 Ml) Confirm Administered Dose 200 mg .ROUTE .STK-MED ONE Stop: 05/19/17 09:36 Propofol (Diprivan 20 Ml) Confirm Administered Dose 200 mg .ROUTE .STK-MED ONE Stop: 05/20/17 09:49 Rocuronium [place] (Zemuron) Confirm Administered Dose 50 mg .ROUTE .STK-MED ONE Stop: 05/20/17 09:49 Rocuronium [place] (Zemuron) Confirm Administered Dose 50 mg .ROUTE .STK-MED ONE Stop: 05/20/17 12:13 Succinylcholine Chloride (Succinylcholine In Ns Pf) Confirm Administered Dose 200 mg .ROUTE .STK-MED ONE Stop: 05/20/17 09:49 - Exam Quality Assessment: supplemental oxygen, DVT prophylaxis General: alert, oriented, cooperative Lungs: Clear to auscultation, Normal respiratory effort Cardiovascular: Regular Rate, Regular Rhythm, No Murmurs Abdomen: bowel sounds present, soft, no tenderness, no distension Extremities: no edema - Problem List Review Problem List Initiated/Reviewed/Updated: Yes - My Orders Last 24 Hours: My Active Orders 05/21/17 05:00 BASIC METABOLIC PANEL,BMP [CHEM] Timed CBC WITH AUTO DIFF [HEME] Timed MAGNESIUM [CHEM] Timed - Plan Plan:: ASSESSMENT / PLAN Empyema of right lung - large size of the empyema with stable vital signs. Decortication performed today, resulting in marked improvement in aeration. Culture growing gram-positive cocci, appears to be coag negative, final ID and sensitivities are pending -Antibiotic coverage with levofloxacin and Zyvox -Follow-up cultures -continue pulse ox -Supplement oxygen as needed -Follow-up chest x-ray in the morning -Chest tube management per surgical team Maintenance issues -Nutrition: Regular diet -Gonzales catheter not indicated at this time -DVT: SCD -GI: PPI Disposition; anticipate discharge to home after the hospital stay Primary care provider: Jordin Varner NP, [facility]
[2017-05-20] MEDS: Dextrose 5%-Lactated Ringers 1,000 ML IV SCH (18:08)
[2017-05-20] MEDS: Levofloxacin/Dextrose 5%-Water 750 MG in Premix Bag 1 BAG IV SCH (20:42)
[2017-05-20] MEDS ORDERED: Linezolid 600 MG in Premix Bag 1 BAG IV SCH (22:00)
[2017-05-20] MEDS ORDERED: Sodium Chloride 0.9% 500 ML IV ONE (23:44)
[2017-05-21] MEDS: HYDROmorphone/Normal Saline 15 MG/30 ML PCA IV PRN (00:53)
[2017-05-21] MEDS: Dextrose 5%-Lactated Ringers 1,000 ML IV SCH (06:59)
[2017-05-21] MEDS ORDERED: Dextrose 5%-Lactated Ringers 1,000 ML IV SCH (07:13)
[2017-05-21] MEDS: Levothyroxine 100 MCG, Levothyroxine 25 MCG PO SCH ×2 (08:05)
[2017-05-21] MEDS: Docusate Sodium 100 MG Cap PO SCH ×2 (08:05→20:52)
[2017-05-21] MEDS: Polyethylene Glycol 3350 Powder 17 GM Packet PO SCH ×2 (08:06→20:52)
[2017-05-21] MEDS ORDERED: Magnesium Citrate Solution 296 ML Bottle PO ONE (09:00)
--- NOTE | 2017-05-21 09:03 | CR ---
Chest 1V Frontal INDICATION: f/u chest tube FINDINGS: Comparison 05/20/2017. 3 right chest tubes in place. Mild increase in size of the right ple ural effusion with associated compressive atelectasis. Decrease in subcutaneous emphysema in the rig ht chest wall. Left lung remains clear.
--- NOTE | 2017-05-21 09:14 | PN ---
DATE OF SERVICE: 05/21/2017 SUBJECTIVE: George states his pain is controlled. He is postop day 1 following a procedure yesterday. He states that his pain is controlled. He is wondering if his fibrous pleural exudate could have anything to do with a chemical 2,4-D, which is a weed killer. He said that he inhaled quite a bit of it the day before admission. REVIEW OF SYSTEMS: Remainder of review of systems negative for any pertinent positives and negatives. OBJECTIVE: GENERAL: George Blackwell is a 76-year-old male. He is alert and orientated, sitting up in bed. VITAL SIGNS: TPR 97.2, 80, 16, and blood pressure 128/73. HEENT: Negative. NECK: Supple. HEART: Regular rate and rhythm. LUNGS: Chest tube dressings, he has 3 chest tubes dry and intact. Chest tubes have put out 340 and 134 of a light pink drainage. EXTREMITIES: Without peripheral edema. ASSESSMENT: 1. Right thoracoscopy with evacuation of fibrous pleural exudate, wedge biopsy of right lower lobe and right middle lobe, total pulmonary decortication including intrapleural pneumolysis for right empyema associated with diffuse fibrous exudate of the lungs and large pleural fibrinous deposits on 05/20/2017. 2. Right tube thoracostomy for right empyema on 05/18/2017. PLAN: 1. Check CT of chest with IV contrast in a.m., 05/22/2017. 2. Call Dr. Jorge Hoffman with results of culture and sensitivity. 3. Discontinue Gonzales catheter. 4. Regular diet. 5. Decrease IV to 60 mL/hour. 6. Magnesium citrate 1 bottle today. 7. N.p.o. after midnight for CT of chest with IV contrast. 8. Good pulmonary toilet encouraged. 9. We will evaluate p.r.n. or in a.m. Ayleen Sharma PA-C /[id number]
[2017-05-21] MEDS ORDERED: Ciprofloxacin in D5W 400 MG in Premix Bag 1 BAG IV SCH ×2 (10:00)
[2017-05-21] MEDS: Doxycycline 100 MG in Sodium Chloride 0.9% 100 ML IV SCH ×2 (11:02→22:32)
--- NOTE | 2017-05-21 17:52 | PCM.PN ---
- General Info Date of Service: 05/21/17 Functional Status: Reports: pain controlled, tolerating diet - Review of Systems General: Reports: Weakness. Denies: Fever, Chills Pulmonary: Reports: shortness of breath, pleuritic chest pain. Denies: cough, sputum, hemoptysis, wheezing Cardiovascular: Reports: Dyspnea on Exertion. Denies: Chest Pain, Palpitations , Orthopnea, PND, Lightheadedness Gastrointestinal: Reports: No symptoms Systems Review Comment:: This patient has been stable since yesterday, has not yet noted significant improvement in shortness of breath. Vital signs have been good and he has remained afebrile. - Patient Data Vitals - most recent: Last Vital Signs Temp 97.0 F 05/21/17 15:25 Pulse 88 05/21/17 15:25 Resp 14 05/21/17 15:25 BP 142/76 H 05/21/17 15:25 Pulse Ox 95 05/21/17 15:25 Weight - most recent: 182 lb 2.017 oz I&O - last 24 hours: Intake & Output 05/21/17 05/21/17 05/21/17 06:59 14:59 22:59 Intake Total 20000 Output Total 2724 800 Balance -723 420 Lab Results last 24 hrs: Laboratory Results - last 24 hr 05/21/17 05/21/17 Range/Units 06:00 06:00 WBC 19.8 H (4.5-11.0) K/uL RBC 3.68 L (4.30-5.90) M/uL Hgb 11.4 L (12.0-15.0) g/dL Hct 35.5 L (40.0-54.0) % MCV 97 (80-98) fL MCH 31 (27-31) pg MCHC 32 (32-36) % Plt Count 350 (150-400) K/uL Add Manual Diff Yes Neutrophils % (Manual) 82 H (36-66) % Band Neutrophils % 2 L (5-11) % Lymphocytes % (Manual) 10 L (24-44) % Monocytes % (Manual) 6 (2-6) % Sodium 137 L (140-148) mmol/L Potassium 4.5 (3.6-5.2) mmol/L Chloride 102 (100-108) mmol/L Carbon Dioxide 31 (21-32) mmol/L Anion Gap 8.5 (5.0-14.0) mmol/L BUN 9 (7-18) mg/dL Creatinine 1.0 (0.8-1.3) mg/dL Est Cr Clr Drug Dosing 63.61 mL/min Estimated GFR (MDRD) > 60 (>60) Glucose 137 H (74-106) mg/dL Calcium 8.8 (8.5-10.1) mg/dL Magnesium 2.1 (1.8-2.4) mg/dL [place] Results last 24 hrs: Microbiology 05/18/17 09:25 Specimen Source - Preliminary Pleural Fluid - Pleural Cavity, Right Acid Fast Bacilli Smear - Preliminary 05/18/17 09:19 Gram Stain - Final Pleural Fluid - Pleural Cavity, Right Wound Culture - Final Staphylococcus Epidermidis Viridans Streptococcus Anaerobic Culture - Final NO GROWTH AFTER 3 DAYS 05/19/17 11:32 Anaerobic Culture - Preliminary Pleural Fluid - Pleural Cavity, Right NO GROWTH AFTER 1 DAY 05/18/17 09:25 Gram Stain - Final Pleural Fluid - Pleural Cavity, Right Wound Culture - Final NO GROWTH AFTER 3 DAYS Anaerobic Culture - Final NO GROWTH AFTER 3 DAYS 05/20/17 14:46 Gram Stain - Final Pleural Fluid - Pleural Cavity, Right Med Orders - Current: Current Medications Acetaminophen (Tylenol) 650 mg PO Q4H PRN PRN Reason: PAIN Bisacodyl (Dulcolax) 5 mg PO DAILY PRN PRN Reason: Constipation Docusate Sodium (Colace) 100 mg PO BID PRN PRN Reason: Constipation Docusate Sodium (Colace) 100 mg PO BID [facility] Last Admin: 05/21/17 08:05 Dose: 100 mg Guaifenesin/Codeine Phosphate (Robitussin Ac) 10 ml PO Q4H PRN PRN Reason: Cough Hydromorphone HCl (Dilaudid [employer]el [employer]ice 15 Mg In Ns 30 Ml) 0 mg IV ASDIRECTED PRN; Protocol PRN Reason: [employer] PAIN [employer]OL Last Admin: 05/21/17 00:53 Dose: 15 mg Levofloxacin/Dextrose 750 mg/ (Premix) 150 mls @ 100 mls/hr IV Q24H [facility] Last Admin: 05/20/17 20:42 Dose: 100 mls/hr Dextrose/Lactated Ringer's (Dextrose 5%-Lactated Ringers) 1,000 mls @ 60 mls/ hr IV ASDIRECTED [facility] Doxycycline Hyclate 100 mg/ (Sodium Chloride) 100 mls @ 100 mls/hr IV Q12H [facility] Last Admin: 05/21/17 11:02 Dose: 100 mls/hr Levothyroxine Sodium 100 mcg/ (Levothyroxine Sodium 25 mcg) 125 mcg PO DAILY@ 0730 [facility] Last Admin: 05/21/17 08:05 Dose: 125 mcg Lorazepam (Ativan) 1 mg IV Q6H PRN PRN Reason: Nausea/Vomiting Magnesium Hydroxide (Milk Of Magnesia) 30 ml PO BID PRN PRN Reason: Constipation Morphine Sulfate (Morphine) 2 mg IVPUSH Q2H PRN PRN Reason: Pain (severe 7-10) Naloxone HCl (Narcan) 0.1 mg IV ASDIRECTED PRN PRN Reason: decreased respiratory rate Ondansetron HCl (Zofran Odt) 4 mg PO Q6H PRN PRN Reason: Nausea able to take PO Ondansetron HCl (Zofran) 4 mg IV Q4H PRN PRN Reason: Nausea/Vomiting Polyethylene Glycol (Miralax) 17 gm PO BID [facility] Last Admin: 05/21/17 08:06 Dose: 17 gm Tizanidine HCl (Zanaflex) 2 mg PO Q6H PRN PRN Reason: Muscle Spasm Last Admin: 05/18/17 21:32 Dose: 2 mg Discontinued Medications Bupivacaine HCl/Epinephrine Bitart (Marcaine 0.5%/Epinephrine 1:200,000) Confirm Administered Dose 50 ml .ROUTE .STK-MED ONE Stop: 05/18/17 08:31 Last Admin: 05/18/17 11:05 Dose: 2 ml Bupivacaine HCl/Epinephrine Bitart (Marcaine 0.5%/Epinephrine 1:200,000) Confirm Administered Dose 50 ml .ROUTE .STK-MED ONE Stop: 05/19/17 08:00 Last Admin: 05/19/17 09:58 Dose: 5 ml Bupivacaine HCl/Epinephrine Bitart (Marcaine 0.5%/Epinephrine 1:200,000) Confirm Administered Dose 50 ml .ROUTE .STK-MED ONE Stop: 05/20/17 10:16 Cyclobenzaprine HCl (Flexeril) 10 mg PO TID [facility] Last Admin: 05/18/17 14:24 Dose: Not Given Dexamethasone (Dexamethasone) Confirm Administered Dose 4 mg .ROUTE .STK-MED ONE Stop: 05/20/17 09:49 Fentanyl (Sublimaze) Confirm Administered Dose 100 mcg .ROUTE .ST-MED ONE Stop: 05/18/17 06:34 Fentanyl (Sublimaze) Confirm Administered Dose 100 mcg .ROUTE .STK-MED ONE Stop: 05/19/17 09:36 Fentanyl (Sublimaze) Confirm Administered Dose 250 mcg .ROUTE .STK-MED ONE Stop: 05/20/17 09:50 Fentanyl (Sublimaze) Confirm Administered Dose 250 mcg .ROUTE .STK-MED ONE Stop: 05/20/17 12:06 Glycopyrrolate () Confirm Administered Dose 1 mg .ROUTE .STK-MED ONE Stop: 05/20/17 09:49 Sodium Chloride (Normal Saline) 1,000 mls @ 150 mls/hr IV ASDIRECTED [facility] Last Admin: 05/17/17 20:33 Dose: 150 mls/hr Lactated Ringer's (Ringers, Lactated) 1,000 mls @ 125 mls/hr IV ASDIRECTED [facility] Last Admin: 05/18/17 00:22 Dose: 125 mls/hr Piperacillin Sod/Tazobactam (Sod 3.375 gm/ Sodium Chloride) 50 mls @ 100 mls/ hr IV Q6H [facility] Last Admin: 05/18/17 06:11 Dose: 100 mls/hr Sodium Chloride (Normal Saline) Confirm Administered Dose 200 mls @ as directed .ROUTE .ST-MED ONE Stop: 05/18/17 00:07 Last Admin: 05/18/17 00:32 Dose: Not Given Sodium Chloride (Normal Saline) Confirm Administered Dose 100 mls @ as directed .ROUTE .ST-MED ONE Stop: 05/18/17 00:09 Last Admin: 05/18/17 00:24 Dose: 50 ml Piperacillin/Tazobactam/ (Dextrose 3.375 gm/ Premix) 50 mls @ 100 mls/hr IV Q6H [facility] Last Admin: 05/20/17 05:16 Dose: 100 mls/hr Lactated Ringer's (Ringers, Lactated) 1,000 mls @ 75 mls/hr IV ASDIRECTED [facility] Last Admin: 05/19/17 05:39 Dose: 75 mls/hr Lactated Ringer's (Ringers, Lactated) 1,000 mls @ 0 mls/hr IV ASDIRECTED JING PRN Reason: KVO Last Infusion: 05/19/17 23:55 Dose: 100 mls/hr Lactated Ringer's (Ringers, Lactated) 1,000 mls @ 100 mls/hr IV ASDIRECTED JING Linezolid 600 mg/ Premix 300 mls @ 300 mls/hr IV ONCALL ONE Stop: 05/20/17 10:59 Last Admin: 05/20/17 10:34 Dose: 300 mls/hr Linezolid 600 mg/ Premix 300 mls @ 300 mls/hr IV Q12H JING Last Admin: 05/20/17 22:38 Dose: 300 mls/hr Linezolid (Zyvox) Confirm Administered Dose 100 mls @ as directed .ROUTE .STK- MED ONE Stop: 05/20/17 12:21 Lactated Ringer's (Ringers, Lactated) Confirm Administered Dose 1,000 mls @ as directed .ROUTE .STK-MED ONE Stop: 05/20/17 12:57 Dextrose/Lactated Ringer's (Dextrose 5%-Lactated Ringers) 1,000 mls @ 125 mls/ hr IV ASDIRECTED [facility] Last Admin: 05/21/17 06:59 Dose: 60 mls/hr Sodium Chloride (Normal Saline) 500 mls @ 0 mls/hr IV UPON ONE PRN Reason: KVO Stop: 05/20/17 23:45 Last Admin: 05/20/17 20:55 Dose: 25 mls/hr Ciprofloxacin/Dextrose 400 mg/ (Premix) 200 mls @ 200 mls/hr IV Q12H [facility] Last Admin: 05/21/17 12:11 Dose: Not Given Levothyroxine Sodium (Synthroid) 125 mcg PO DAILY [facility] Last Admin: 05/18/17 21:31 Dose: 125 mcg Magnesium Citrate (Citrate Of Magnesia) 237 ml PO ONETIME ONE Stop: 05/21/17 09:01 Last Admin: 05/21/17 08:05 Dose: 237 ml Methylprednisolone Acetate (Depo-Medrol) Confirm Administered Dose 80 mg .ROUTE .STK-MED ONE Stop: 05/20/17 10:33 Midazolam HCl (Versed 1 Mg/Ml) Confirm Administered Dose 2 mg .ROUTE .STK-MED ONE Stop: 05/18/17 06:35 Midazolam HCl (Versed 1 Mg/Ml) Confirm Administered Dose 2 mg .ROUTE .STK-MED ONE Stop: 05/20/17 09:50 Neostigmine Methylsulfate (Neostigmine) Confirm Administered Dose 5 mg .ROUTE .STK-MED ONE Stop: 05/20/17 09:49 Ondansetron HCl (Zofran) Confirm Administered Dose 4 mg .ROUTE .STK-MED ONE Stop: 05/20/17 09:49 Oxycodone HCl (Oxycodone) 5 mg PO Q4H PRN PRN Reason: Pain (moderate 4-6) Last Admin: 05/18/17 01:32 Dose: 5 mg Propofol (Diprivan 20 Ml) Confirm Administered Dose 200 mg .ROUTE .STK-MED ONE Stop: 05/18/17 06:34 Propofol (Diprivan 20 Ml) Confirm Administered Dose 200 mg .ROUTE .STK-MED ONE Stop: 05/19/17 09:36 Propofol (Diprivan 20 Ml) Confirm Administered Dose 200 mg .ROUTE .STK-MED ONE Stop: 05/20/17 09:49 Rocuronium [place] (Zemuron) Confirm Administered Dose 50 mg .ROUTE .STK-MED ONE Stop: 05/20/17 09:49 Rocuronium [place] (Zemuron) Confirm Administered Dose 50 mg .ROUTE .STK-MED ONE Stop: 05/20/17 12:13 Succinylcholine Chloride (Succinylcholine In Ns Pf) Confirm Administered Dose 200 mg .ROUTE .STK-MED ONE Stop: 05/20/17 09:49 - Exam Quality Assessment: supplemental oxygen, DVT prophylaxis General: alert, oriented, cooperative, mild distress Lungs: Clear to auscultation, Normal respiratory effort, Crackles. No: Rhonchi , Wheezing Cardiovascular: Regular Rate, Regular Rhythm, No Murmurs Abdomen: bowel sounds present, soft, no tenderness, no distension Extremities: no edema Skin: warm, dry, intact - Problem List Review Problem List Initiated/Reviewed/Updated: Yes - My Orders Last 24 Hours: My Active Orders 05/22/17 05:00 BASIC METABOLIC PANEL,BMP [CHEM] Timed CBC WITH AUTO DIFF [HEME] Timed MAGNESIUM [CHEM] Timed - Plan Plan:: ASSESSMENT / PLAN Empyema of right lung - large size of the empyema with stable vital signs. Decortication performed yesterday, resulting in marked improvement in aeration. Vital signs stable, afebrile. -Follow-up cultures -Zyvox and cipro -continue pulse ox -Supplement oxygen as needed -Follow-up chest x-ray in the morning -Chest tube management per surgical team Maintenance issues -Nutrition: Regular diet -Gonzales catheter not indicated at this time -DVT: SCD -GI: PPI Disposition; anticipate discharge to home after the hospital stay Primary care provider: Jordin Varner NP, [facility]
--- NOTE | 2017-05-21 19:15 | PN ---
DATE OF SERVICE: 05/20/2017 The patient has been afebrile with stable vital signs. He still has a large area of undrained fluid in the right pleural space. Given this and the fact that it appeared to be quite exudative yesterday with the 2nd chest tube, we will plan for a thoracoscopy later this morning with evacuation of pleural space and biopsies if otherwise indicated. His original cultures are growing coag-negative staph and until we get the sensitivities back, we will put him on Zyvox to be sure that this is being covered. The plan will be to proceed with thoracoscopy later this morning with a double-lumen endotracheal . Jorge Hoffman MD /[id number]
[2017-05-21] MEDS: Levofloxacin/Dextrose 5%-Water 750 MG in Premix Bag 1 BAG IV SCH (21:01)
[2017-05-22] MEDS ORDERED: Sodium Chloride 0.9% 10 ML Syringe FLUSH PRN (04:10)
[2017-05-22] MEDS ORDERED: Sodium Chloride 0.9% 80 ML IV SCH (04:15)
[2017-05-22] MEDS ORDERED: Iopamidol 612 MG/ML 100 ML Bottle IV SCH (04:15)
[2017-05-22] MEDS: Levothyroxine 100 MCG, Levothyroxine 25 MCG PO SCH ×2 (07:29)
--- NOTE | 2017-05-22 08:45 | CT ---
Chest w Cont Total DLP 418 mGycm. INDICATION: right empyema - sp right throroscopy COMPARISON: Chest x-ray 05/21/2017. FINDINGS: 3 right chest tubes in place. Small right, partially loculated hydropneumothorax. Moderate compressive atelectasis in the right lower lung. Enlarged mediastinal and right hilar lymph nodes m easuring up to 2 cm in short axis on axial image 55 are likely reactive. Small left pleural effusion with mild compressive atelectasis in the lower lobe. Multiple low-attenuation lesions throughout th e spleen are nonspecific but may be infectious. Small amount of subcutaneous emphysema in the right lower chest wall. Degenerative changes both shoulders. Exam otherwise unremarkable. IMPRESSION: 1. 3 right chest tubes in place within a small right partially loculated hydropneumothorax. 2. Bibasilar atelectasis. 3. Small left pleural effusion. 4. Multiple low-attenuation lesions in the spleen are nonspecific but may be infectious. 5. Mediastinal and right hilar adenopathy. Consider short interval follow-up chest CT.
[2017-05-22] MEDS: Docusate Sodium 100 MG Cap PO SCH ×2 (10:08→20:51)
[2017-05-22] MEDS: Polyethylene Glycol 3350 Powder 17 GM Packet PO SCH ×2 (10:08→20:52)
[2017-05-22] MEDS: Doxycycline 100 MG in Sodium Chloride 0.9% 100 ML IV SCH ×2 (11:05→22:38)
--- NOTE | 2017-05-22 12:44 | PN ---
DATE OF SERVICE: 05/22/2017 SUBJECTIVE: George has been afebrile. He has been up ambulating. Pain has been controlled. Chest tubes are putting out 474 and 340 of a light pink serosanguinous drainage. REVIEW OF SYSTEMS: Remainder of review of systems is negative for any pertinent positives and negatives. OBJECTIVE: GENERAL: George is a pleasant 76-year-old male. VITAL SIGNS: TPR is 96.3, 90, 14, blood pressure 142/82. HEENT: Negative. NECK: Supple. HEART: Regular rate and rhythm. LUNGS: Reveal decreased breath sounds on the right, otherwise negative. Chest tubes intact. Dressings dry and intact. ABDOMEN: Negative. EXTREMITIES: Negative. ASSESSMENT: 1. Right thoracoscopy with evacuation of fibrous pleural exudate, wedge biopsy of right lower lobe and right middle lobe, total pulmonary decortication including intrapleural pneumonolysis for right empyema associated with diffuse fibrous exudate of the lungs, right lung enlarged pleural fibrinous deposit on 05/20/2017. 2. Right tube thoracostomy for right empyema on 05/18/2017. PLAN: Change chest tube dressings q.72 hours and p.r.n. We will evaluate p.r.n. or in a.m. Ayleen Sharma PA-C /[id number]
[2017-05-22] MEDS ORDERED: Lactated Ringers 1,000 ML IV SCH (13:15)
[2017-05-22] MEDS ORDERED: Furosemide 20 MG/2 ML VIAL IVPUSH ONE (13:30)
[2017-05-22] MEDS: HYDROmorphone/Normal Saline 15 MG/30 ML PCA IV PRN (15:25)
--- NOTE | 2017-05-22 17:23 | PCM.PN ---
- General Info Date of Service: 05/22/17 Functional Status: Reports: pain controlled, tolerating diet, ambulating - Review of Systems General: Reports: Weakness. Denies: Fever, Chills Pulmonary: Reports: shortness of breath. Denies: pleuritic chest pain, cough, sputum Cardiovascular: Reports: Dyspnea on Exertion, Edema. Denies: Chest Pain, Palpitations, Orthopnea, PND Gastrointestinal: Reports: No symptoms Psychiatric: Reports: anxiety Systems Review Comment:: This patient has been stable since yesterday with no acute events noted overnight. Vital signs have been good and he has remained afebrile. He has developed significant peripheral edema since admission, likely secondary to IV fluids. He denies any increase in shortness of breath but also is noted no significant improvement thus far. - Patient Data Vitals - most recent: Last Vital Signs Temp 96.7 F 05/22/17 14:51 Pulse 88 05/22/17 14:51 Resp 18 05/22/17 14:51 BP 143/76 H 05/22/17 14:51 Pulse Ox 94 L 05/22/17 14:51 Weight - most recent: 182 lb 2.017 oz I&O - last 24 hours: Intake & Output 05/22/17 05/22/17 05/22/17 06:59 14:59 22:59 Intake Total 1077 1561 Output Total 1120 250 Balance -43 1311 Lab Results last 24 hrs: Laboratory Results - last 24 hr 05/22/17 05/22/17 Range/Units 05:10 05:10 WBC 16.2 H (4.5-11.0) K/uL RBC 3.86 L (4.30-5.90) M/uL Hgb 12.0 (12.0-15.0) g/dL Hct 37.7 L (40.0-54.0) % MCV 98 (80-98) fL MCH 31 (27-31) pg MCHC 32 (32-36) % Plt Count 381 (150-400) K/uL Add Manual Diff Yes Neutrophils % (Manual) 71 H (36-66) % Band Neutrophils % 1 L (5-11) % Lymphocytes % (Manual) 20 L (24-44) % Monocytes % (Manual) 8 H (2-6) % Sodium 137 L (140-148) mmol/L Potassium 4.3 (3.6-5.2) mmol/L Chloride 99 L (100-108) mmol/L Carbon Dioxide 34 H (21-32) mmol/L Anion Gap 8.3 (5.0-14.0) mmol/L BUN 11 (7-18) mg/dL Creatinine 1.0 (0.8-1.3) mg/dL Est Cr Clr Drug Dosing 63.61 mL/min Estimated GFR (MDRD) > 60 (>60) Glucose 138 H (74-106) mg/dL Calcium 8.7 (8.5-10.1) mg/dL Magnesium 2.0 (1.8-2.4) mg/dL [place] Results last 24 hrs: Microbiology 05/20/17 14:46 Gram Stain - Final Pleural Fluid - Pleural Cavity, Right Wound Culture - Preliminary NO GROWTH AFTER 1 DAY Anaerobic Culture - Preliminary NO GROWTH AFTER 1 DAY 05/19/17 11:32 Anaerobic Culture - Preliminary Pleural Fluid - Pleural Cavity, Right NO GROWTH AFTER 2 DAYS Med Orders - Current: Current Medications Acetaminophen (Tylenol) 650 mg PO Q4H PRN PRN Reason: PAIN Bisacodyl (Dulcolax) 5 mg PO DAILY PRN PRN Reason: Constipation Docusate Sodium (Colace) 100 mg PO BID PRN PRN Reason: Constipation Docusate Sodium (Colace) 100 mg PO BID [facility] Last Admin: 05/22/17 10:08 Dose: Not Given Guaifenesin/Codeine Phosphate (Robitussin Ac) 10 ml PO Q4H PRN PRN Reason: Cough Hydromorphone HCl (Dilaudid Cargo Mate 15 Mg In Ns 30 Ml) 0 mg IV ASDIRECTED PRN; Protocol PRN Reason: [employer] Last Admin: 05/22/17 15:25 Dose: 15 mg Levofloxacin/Dextrose 750 mg/ (Premix) 150 mls @ 100 mls/hr IV Q24H [facility] Last Admin: 05/21/17 21:01 Dose: 100 mls/hr Doxycycline Hyclate 100 mg/ (Sodium Chloride) 100 mls @ 100 mls/hr IV Q12H [facility] Last Admin: 05/22/17 11:05 Dose: 100 mls/hr Lactated Ringer's (Ringers, Lactated) 1,000 mls @ 25 mls/hr IV ASDIRECTED [facility] Last Admin: 05/22/17 13:27 Dose: 25 mls/hr Levothyroxine Sodium 100 mcg/ (Levothyroxine Sodium 25 mcg) 125 mcg PO DAILY@ 0730 [facility] Last Admin: 05/22/17 07:29 Dose: 125 mcg Lorazepam (Ativan) 0.5 mg IVPUSH Q4H PRN PRN Reason: Anxiety Magnesium Hydroxide (Milk Of Magnesia) 30 ml PO BID PRN PRN Reason: Constipation Morphine Sulfate (Morphine) 2 mg IVPUSH Q2H PRN PRN Reason: Pain (severe 7-10) Naloxone HCl (Narcan) 0.1 mg IV ASDIRECTED PRN PRN Reason: decreased respiratory rate Ondansetron HCl (Zofran Odt) 4 mg PO Q6H PRN PRN Reason: Nausea able to take PO Ondansetron HCl (Zofran) 4 mg IV Q4H PRN PRN Reason: Nausea/Vomiting Polyethylene Glycol (Miralax) 17 gm PO BID [facility] Last Admin: 05/22/17 10:08 Dose: Not Given Tizanidine HCl (Zanaflex) 2 mg PO Q6H PRN PRN Reason: Muscle Spasm Last Admin: 05/18/17 21:32 Dose: 2 mg Discontinued Medications Bupivacaine HCl/Epinephrine Bitart (Marcaine 0.5%/Epinephrine 1:200,000) Confirm Administered Dose 50 ml .ROUTE .STK-MED ONE Stop: 05/18/17 08:31 Last Admin: 05/18/17 11:05 Dose: 2 ml Bupivacaine HCl/Epinephrine Bitart (Marcaine 0.5%/Epinephrine 1:200,000) Confirm Administered Dose 50 ml .ROUTE .STK-MED ONE Stop: 05/19/17 08:00 Last Admin: 05/19/17 09:58 Dose: 5 ml Bupivacaine HCl/Epinephrine Bitart (Marcaine 0.5%/Epinephrine 1:200,000) Confirm Administered Dose 50 ml .ROUTE .STK-MED ONE Stop: 05/20/17 10:16 Cyclobenzaprine HCl (Flexeril) 10 mg PO TID [facility] Last Admin: 05/18/17 14:24 Dose: Not Given Dexamethasone (Dexamethasone) Confirm Administered Dose 4 mg .ROUTE .STK-MED ONE Stop: 05/20/17 09:49 Fentanyl (Sublimaze) Confirm Administered Dose 100 mcg .ROUTE .STK-MED ONE Stop: 05/18/17 06:34 Fentanyl (Sublimaze) Confirm Administered Dose 100 mcg .ROUTE .[facility] ONE Stop: 05/19/17 09:36 Fentanyl (Sublimaze) Confirm Administered Dose 250 mcg .ROUTE .[facility] ONE Stop: 05/20/17 09:50 Fentanyl (Sublimaze) Confirm Administered Dose 250 mcg .ROUTE .STK-MED ONE Stop: 05/20/17 12:06 Furosemide (Lasix) 20 mg IVPUSH NOW ONE Stop: 05/22/17 13:31 Last Admin: 05/22/17 13:26 Dose: 20 mg Glycopyrrolate () Confirm Administered Dose 1 mg .ROUTE .[facility] ONE Stop: 05/20/17 09:49 Sodium Chloride (Normal Saline) 1,000 mls @ 150 mls/hr IV ASDIRECTED [facility] Last Admin: 05/17/17 20:33 Dose: 150 mls/hr Lactated Ringer's (Ringers, Lactated) 1,000 mls @ 125 mls/hr IV ASDIRECTED [facility] Last Admin: 05/18/17 00:22 Dose: 125 mls/hr Piperacillin Sod/Tazobactam (Sod 3.375 gm/ Sodium Chloride) 50 mls @ 100 mls/ hr IV Q6H [facility] Last Admin: 05/18/17 06:11 Dose: 100 mls/hr Sodium Chloride (Normal Saline) Confirm Administered Dose 200 mls @ as directed .ROUTE .[facility] ONE Stop: 05/18/17 00:07 Last Admin: 05/18/17 00:32 Dose: Not Given Sodium Chloride (Normal Saline) Confirm Administered Dose 100 mls @ as directed .ROUTE .[facility] ONE Stop: 05/18/17 00:09 Last Admin: 05/18/17 00:24 Dose: 50 ml Piperacillin/Tazobactam/ (Dextrose 3.375 gm/ Premix) 50 mls @ 100 mls/hr IV Q6H [facility] Last Admin: 05/20/17 05:16 Dose: 100 mls/hr Lactated Ringer's (Ringers, Lactated) 1,000 mls @ 75 mls/hr IV ASDIRECTED [facility] Last Admin: 05/19/17 05:39 Dose: 75 mls/hr Lactated Ringer's (Ringers, Lactated) 1,000 mls @ 0 mls/hr IV ASDIRECTED [facility] PRN Reason: KVO Last Infusion: 05/19/17 23:55 Dose: 100 mls/hr Lactated Ringer's (Ringers, Lactated) 1,000 mls @ 100 mls/hr IV ASDIRECTED [facility] Linezolid 600 mg/ Premix 300 mls @ 300 mls/hr IV ONCALL ONE Stop: 05/20/17 10:59 Last Admin: 05/20/17 10:34 Dose: 300 mls/hr Linezolid 600 mg/ Premix 300 mls @ 300 mls/hr IV Q12H [facility] Last Admin: 05/20/17 22:38 Dose: 300 mls/hr Linezolid (Zyvox) Confirm Administered Dose 100 mls @ as directed .ROUTE .STK- MED ONE Stop: 05/20/17 12:21 Lactated Ringer's (Ringers, Lactated) Confirm Administered Dose 1,000 mls @ as directed .ROUTE .STK-MED ONE Stop: 05/20/17 12:57 Dextrose/Lactated Ringer's (Dextrose 5%-Lactated Ringers) 1,000 mls @ 125 mls/ hr IV ASDIRECTED [facility] Last Admin: 05/21/17 06:59 Dose: 60 mls/hr Sodium Chloride (Normal Saline) 500 mls @ 0 mls/hr IV UPON ONE PRN Reason: KVO Stop: 05/20/17 23:45 Last Admin: 05/20/17 20:55 Dose: 25 mls/hr Dextrose/Lactated Ringer's (Dextrose 5%-Lactated Ringers) 1,000 mls @ 60 mls/ hr IV ASDIRECTED [facility] Last Admin: 05/22/17 01:07 Dose: 60 mls/hr Ciprofloxacin/Dextrose 400 mg/ (Premix) 200 mls @ 200 mls/hr IV Q12H [facility] Last Admin: 05/21/17 12:11 Dose: Not Given Sodium Chloride (Normal Saline) 80 mls @ 3 mls/sec IV ASDIRECTED [facility] Last Admin: 05/22/17 05:07 Dose: 3 mls/sec Iopamidol (Isovue-300 (61%)) 100 ml IV . DIRECTED [facility] Last Admin: 05/22/17 05:07 Dose: 100 ml Levothyroxine Sodium (Synthroid) 125 mcg PO DAILY [facility] Last Admin: 05/18/17 21:31 Dose: 125 mcg Lorazepam (Ativan) 1 mg IV Q6H PRN PRN Reason: Nausea/Vomiting Magnesium Citrate (Citrate Of Magnesia) 237 ml PO ONETIME ONE Stop: 05/21/17 09:01 Last Admin: 05/21/17 08:05 Dose: 237 ml Methylprednisolone Acetate (Depo-Medrol) Confirm Administered Dose 80 mg .ROUTE .STK-MED ONE Stop: 05/20/17 10:33 Midazolam HCl (Versed 1 Mg/Ml) Confirm Administered Dose 2 mg .ROUTE .STK-MED ONE Stop: 05/18/17 06:35 Midazolam HCl (Versed 1 Mg/Ml) Confirm Administered Dose 2 mg .ROUTE .STK-MED ONE Stop: 05/20/17 09:50 Neostigmine Methylsulfate (Neostigmine) Confirm Administered Dose 5 mg .ROUTE .STK-MED ONE Stop: 05/20/17 09:49 Ondansetron HCl (Zofran) Confirm Administered Dose 4 mg .ROUTE .STK-MED ONE Stop: 05/20/17 09:49 Oxycodone HCl (Oxycodone) 5 mg PO Q4H PRN PRN Reason: Pain (moderate 4-6) Last Admin: 05/18/17 01:32 Dose: 5 mg Propofol (Diprivan 20 Ml) Confirm Administered Dose 200 mg .ROUTE .STK-MED ONE Stop: 05/18/17 06:34 Propofol (Diprivan 20 Ml) Confirm Administered Dose 200 mg .ROUTE .STK-MED ONE Stop: 05/19/17 09:36 Propofol (Diprivan 20 Ml) Confirm Administered Dose 200 mg .ROUTE .STK-MED ONE Stop: 05/20/17 09:49 Rocuronium [place] (Zemuron) Confirm Administered Dose 50 mg .ROUTE .STK-MED ONE Stop: 05/20/17 09:49 Rocuronium [place] (Zemuron) Confirm Administered Dose 50 mg .ROUTE .STK-MED ONE Stop: 05/20/17 12:13 Sodium Chloride (Saline Flush) 10 ml FLUSH ASDIRECTED PRN PRN Reason: Keep Vein Open Last Admin: 05/22/17 05:06 Dose: 10 ml Succinylcholine Chloride (Succinylcholine In Ns Pf) Confirm Administered Dose 200 mg .ROUTE .STK-MED ONE Stop: 05/20/17 09:49 - Exam Quality Assessment: supplemental oxygen, DVT prophylaxis General: alert, oriented, cooperative, no acute distress Lungs: Normal respiratory effort, Rales, Rhonchi. No: Wheezing Cardiovascular: Regular Rate, Regular Rhythm, No Murmurs Abdomen: bowel sounds present, soft, no tenderness, no distension Extremities: edema Skin: warm, dry, intact - Problem List Review Problem List Initiated/Reviewed/Updated: Yes - My Orders Last 24 Hours: My Active Orders 05/22/17 13:05 LORazepam [Ativan] 0.5 mg IVPUSH Q4H PRN 05/22/17 13:15 Lactated Ringers [Ringers, Lactated] 1,000 ml IV ASDIRECTED 05/23/17 05:00 BASIC METABOLIC PANEL,BMP [CHEM] Timed CBC WITH AUTO DIFF [HEME] Timed - Plan Plan:: ASSESSMENT / PLAN Empyema of right lung - large size of the empyema with stable vital signs. Decortication performed 2 days ago, resulting in marked improvement in aeration. Vital signs stable, afebrile. -Cultures growing staph epidermidis and strep viridans -Doxycycline and levofloxacin -continue pulse ox -Supplement oxygen as needed -Follow-up chest x-ray in the morning -Chest tube management per surgical team Peripheral edema-likely secondary to IV fluid infusion since admission -Minimize IV fluids -Lasix 20 mg IV today -Reassess in a.m. Maintenance issues -Nutrition: Regular diet -Gonzales catheter not indicated at this time -DVT: SCD -GI: PPI Disposition; anticipate discharge to home after the hospital stay Primary care provider: Jordin Varner NP, [facility]
[2017-05-22] MEDS: Levofloxacin/Dextrose 5%-Water 750 MG in Premix Bag 1 BAG IV SCH (20:53)
[2017-05-23] MEDS: LORazepam 2 MG/ML MDV IVPUSH PRN ×2 (04:05→23:53)
[2017-05-23] MEDS: Levothyroxine 100 MCG, Levothyroxine 25 MCG PO SCH ×2 (08:05)
[2017-05-23] MEDS: Lactobacillus Rhamnosus GG (Probiotic) Cap PO SCH ×2 (09:22→20:20)
[2017-05-23] MEDS: Doxycycline 100 MG in Sodium Chloride 0.9% 100 ML IV SCH ×2 (09:22→22:27)
--- NOTE | 2017-05-23 09:42 | PN ---
DATE OF SERVICE: 05/23/2017 SUBJECTIVE: George's chest tube 1 has put out 120 and chest tube 2 put out zero. He has had several loose stools. CT scan was reviewed and he does have multiple low attenuation lesions in the spleen. They are nonspecific but may be infectious, so these will be rechecked. He continues to have bibasilar atelectasis with a small left pleural effusion. He has been up ambulating. He has had no fever. Vital signs otherwise have been stable. REVIEW OF SYSTEMS: Remainder of review of systems negative for any pertinent positives and negatives. OBJECTIVE: GENERAL: George Blackwell is a 76-year-old male. He is alert and orientated. SKIN: Warm and dry. Color is good. VITAL SIGNS: TPR is 96.5, 95, 18, blood pressure 141/79. HEENT: Negative. NECK: Supple. HEART: Regular rate and rhythm. LUNGS: Revealed decreased breath sounds with some rales in the right lower lobe. Chest tube dressing is dry and intact. ABDOMEN: Soft and nontender. EXTREMITIES: Without peripheral edema. ASSESSMENT: 1. Right thoracoscopy with evacuation of fibrous pleural exudate, wedge biopsy of right lower lobe and right middle lobe, total pulmonary decortication, and closing intrapleural pneumolysis for right empyema associated with diffuse fibrous exudate of the lungs, right lung enlarged pleural fibrinous deposits on 05/20/2017. 2. Right tube thoracostomy for right empyema on 05/18/2017. PLAN: 1. May shower daily, dressing change, chest tube after showering or q.72 hours as already ordered. 2. Abdominal and pelvic CT scan ordered for Friday, May 26, 2017, at 0400 hours with IV contrast only to re-evaluate spleen. 3. Check Clostridium difficile stool. 4. Culturelle probiotic 2 caps b.i.d. 5. Discontinue Colace and discontinue MiraLAX. 6. Good pulmonary toilet encouraged. 7. We will evaluate p.r.n. or in a.m. Ayleen Sharma PA-C /[id number]
--- NOTE | 2017-05-23 12:46 | PCM.PN ---
- General Info Date of Service: 05/23/17 Functional Status: Reports: pain controlled, tolerating diet, ambulating - Review of Systems General: Reports: Weakness. Denies: Fever, Chills Pulmonary: Reports: shortness of breath, pleuritic chest pain. Denies: cough, sputum, hemoptysis, wheezing Cardiovascular: Reports: Dyspnea on Exertion, Edema. Denies: Chest Pain, Palpitations, Orthopnea, PND Gastrointestinal: Reports: No symptoms Systems Review Comment:: Mr. Blackwell feels somewhat improved today although he did not sleep well last night. Continues to feel some anxiety associated with mild agitation. Lorazepam that was ordered yesterday does seem to help somewhat. He had an excellent diuresis yesterday with good improvement in his peripheral edema. He does have some evidence of bladder outlet obstruction, has been urinating frequently, post void residual bladder scan found volume of 500 mL. - Patient Data Vitals - most recent: Last Vital Signs Temp 96.3 F 05/23/17 11:06 Pulse 92 05/23/17 11:06 Resp 17 05/23/17 11:06 BP 140/76 05/23/17 11:06 Pulse Ox 95 05/23/17 11:06 Weight - most recent: 182 lb 2.017 oz I&O - last 24 hours: Intake & Output 05/22/17 05/23/17 05/23/17 22:59 06:59 14:59 Intake Total 338 500 460 Output Total 250 470 200 Balance 88 30 260 Lab Results last 24 hrs: Laboratory Results - last 24 hr 05/23/17 05/23/17 Range/Units 05:00 05:00 WBC 15.4 H (4.5-11.0) K/uL RBC 3.92 L (4.30-5.90) M/uL Hgb 11.8 L (12.0-15.0) g/dL Hct 37.7 L (40.0-54.0) % MCV 96 (80-98) fL MCH 30 (27-31) pg MCHC 31 L (32-36) % Plt Count 365 (150-400) K/uL Add Manual Diff Yes Neutrophils % (Manual) 76 H (36-66) % Lymphocytes % (Manual) 11 L (24-44) % Monocytes % (Manual) 6 (2-6) % Eosinophils % (Manual) 2 (2-4) % Metamyelocytes % 2 % Promyelocytes % 2 % Sodium 131 L (140-148) mmol/L Potassium 3.8 (3.6-5.2) mmol/L Chloride 96 L (100-108) mmol/L Carbon Dioxide 33 H (21-32) mmol/L Anion Gap 5.8 (5.0-14.0) mmol/L BUN 10 (7-18) mg/dL Creatinine 1.0 (0.8-1.3) mg/dL Est Cr Clr Drug Dosing 63.61 mL/min Estimated GFR (MDRD) > 60 (>60) Glucose 127 H (74-106) mg/dL Calcium 8.7 (8.5-10.1) mg/dL [place] Results last 24 hrs: Microbiology 05/20/17 14:46 Gram Stain - Final Pleural Fluid - Pleural Cavity, Right Wound Culture - Preliminary NO GROWTH AFTER 2 DAYS Anaerobic Culture - Preliminary NO GROWTH AFTER 2 DAYS 05/19/17 11:32 Anaerobic Culture - Final Pleural Fluid - Pleural Cavity, Right NO GROWTH AFTER 3 DAYS Med Orders - Current: Current Medications Acetaminophen (Tylenol) 650 mg PO Q4H PRN PRN Reason: PAIN Bisacodyl (Dulcolax) 5 mg PO DAILY PRN PRN Reason: Constipation Guaifenesin/Codeine Phosphate (Robitussin Ac) 10 ml PO Q4H PRN PRN Reason: Cough Hydromorphone HCl (Dilaudid) 2 mg PO Q3H PRN PRN Reason: Pain Levofloxacin/Dextrose 750 mg/ (Premix) 150 mls @ 100 mls/hr IV Q24H [facility] Last Admin: 05/22/17 20:53 Dose: 100 mls/hr Doxycycline Hyclate 100 mg/ (Sodium Chloride) 100 mls @ 100 mls/hr IV Q12H [facility] Last Admin: 05/23/17 09:22 Dose: 100 mls/hr Lactobacillus Rhamnosus (Culturelle) 2 cap PO BID [facility] Last Admin: 05/23/17 09:22 Dose: 2 cap Levothyroxine Sodium 100 mcg/ (Levothyroxine Sodium 25 mcg) 125 mcg PO DAILY@ 0730 [facility] Last Admin: 05/23/17 08:05 Dose: 125 mcg Lorazepam (Ativan) 0.5 mg IVPUSH Q4H PRN PRN Reason: Anxiety Last Admin: 05/23/17 04:05 Dose: 0.5 mg Magnesium Hydroxide (Milk Of Magnesia) 30 ml PO BID PRN PRN Reason: Constipation Melatonin (Melatonin) 9 mg PO BEDTIME [facility] Morphine Sulfate (Morphine) 2 mg IVPUSH Q2H PRN PRN Reason: Pain (severe 7-10) Naloxone HCl (Narcan) 0.1 mg IV ASDIRECTED PRN PRN Reason: decreased respiratory rate Ondansetron HCl (Zofran Odt) 4 mg PO Q6H PRN PRN Reason: Nausea able to take PO Ondansetron HCl (Zofran) 4 mg IV Q4H PRN PRN Reason: Nausea/Vomiting Tamsulosin HCl (Flomax) 0.4 mg PO DAILY [facility] Tizanidine HCl (Zanaflex) 2 mg PO Q6H PRN PRN Reason: Muscle Spasm Last Admin: 05/18/17 21:32 Dose: 2 mg Discontinued Medications Bupivacaine HCl/Epinephrine Bitart (Marcaine 0.5%/Epinephrine 1:200,000) Confirm Administered Dose 50 ml .ROUTE .STK-MED ONE Stop: 05/18/17 08:31 Last Admin: 05/18/17 11:05 Dose: 2 ml Bupivacaine HCl/Epinephrine Bitart (Marcaine 0.5%/Epinephrine 1:200,000) Confirm Administered Dose 50 ml .ROUTE .STK-MED ONE Stop: 05/19/17 08:00 Last Admin: 05/19/17 09:58 Dose: 5 ml Bupivacaine HCl/Epinephrine Bitart (Marcaine 0.5%/Epinephrine 1:200,000) Confirm Administered Dose 50 ml .ROUTE .STK-MED ONE Stop: 05/20/17 10:16 Cyclobenzaprine HCl (Flexeril) 10 mg PO TID [facility] Last Admin: 05/18/17 14:24 Dose: Not Given Dexamethasone (Dexamethasone) Confirm Administered Dose 4 mg .ROUTE .STK-MED ONE Stop: 05/20/17 09:49 Docusate Sodium (Colace) 100 mg PO BID PRN PRN Reason: Constipation Docusate Sodium (Colace) 100 mg PO BID [facility] Last Admin: 05/22/17 20:51 Dose: Not Given Fentanyl (Sublimaze) Confirm Administered Dose 100 mcg .ROUTE .STK-MED ONE Stop: 05/18/17 06:34 Fentanyl (Sublimaze) Confirm Administered Dose 100 mcg .ROUTE .STK-MED ONE Stop: 05/19/17 09:36 Fentanyl (Sublimaze) Confirm Administered Dose 250 mcg .ROUTE .STK-MED ONE Stop: 05/20/17 09:50 Fentanyl (Sublimaze) Confirm Administered Dose 250 mcg .ROUTE .STK-MED ONE Stop: 05/20/17 12:06 Furosemide (Lasix) 20 mg IVPUSH NOW ONE Stop: 05/22/17 13:31 Last Admin: 05/22/17 13:26 Dose: 20 mg Glycopyrrolate () Confirm Administered Dose 1 mg .ROUTE .STK-MED ONE Stop: 05/20/17 09:49 Hydromorphone HCl (Dilaudid Bar Back 15 Mg In Ns 30 Ml) 0 mg IV ASDIRECTED PRN; Protocol PRN Reason: [employer] Last Admin: 05/22/17 15:25 Dose: 15 mg Sodium Chloride (Normal Saline) 1,000 mls @ 150 mls/hr IV ASDIRECTED [facility] Last Admin: 05/17/17 20:33 Dose: 150 mls/hr Lactated Ringer's (Ringers, Lactated) 1,000 mls @ 125 mls/hr IV ASDIRECTED [facility] Last Admin: 05/18/17 00:22 Dose: 125 mls/hr Piperacillin Sod/Tazobactam (Sod 3.375 gm/ Sodium Chloride) 50 mls @ 100 mls/ hr IV Q6H [facility] Last Admin: 05/18/17 06:11 Dose: 100 mls/hr Sodium Chloride (Normal Saline) Confirm Administered Dose 200 mls @ as directed .ROUTE .STK-MED ONE Stop: 05/18/17 00:07 Last Admin: 05/18/17 00:32 Dose: Not Given Sodium Chloride (Normal Saline) Confirm Administered Dose 100 mls @ as directed .ROUTE .STK-MED ONE Stop: 05/18/17 00:09 Last Admin: 05/18/17 00:24 Dose: 50 ml Piperacillin/Tazobactam/ (Dextrose 3.375 gm/ Premix) 50 mls @ 100 mls/hr IV Q6H [facility] Last Admin: 05/20/17 05:16 Dose: 100 mls/hr Lactated Ringer's (Ringers, Lactated) 1,000 mls @ 75 mls/hr IV ASDIRECTED [facility] Last Admin: 05/19/17 05:39 Dose: 75 mls/hr Lactated Ringer's (Ringers, Lactated) 1,000 mls @ 0 mls/hr IV ASDIRECTED [facility] PRN Reason: KVO Last Infusion: 05/19/17 23:55 Dose: 100 mls/hr Lactated Ringer's (Ringers, Lactated) 1,000 mls @ 100 mls/hr IV ASDIRECTED [facility] Linezolid 600 mg/ Premix 300 mls @ 300 mls/hr IV ONCALL ONE Stop: 05/20/17 10:59 Last Admin: 05/20/17 10:34 Dose: 300 mls/hr Linezolid 600 mg/ Premix 300 mls @ 300 mls/hr IV Q12H [facility] Last Admin: 05/20/17 22:38 Dose: 300 mls/hr Linezolid (Zyvox) Confirm Administered Dose 100 mls @ as directed .ROUTE .STK- MED ONE Stop: 05/20/17 12:21 Lactated Ringer's (Ringers, Lactated) Confirm Administered Dose 1,000 mls @ as directed .ROUTE .STK-MED ONE Stop: 05/20/17 12:57 Dextrose/Lactated Ringer's (Dextrose 5%-Lactated Ringers) 1,000 mls @ 125 mls/ hr IV ASDIRECTED [facility] Last Admin: 05/21/17 06:59 Dose: 60 mls/hr Sodium Chloride (Normal Saline) 500 mls @ 0 mls/hr IV UPON ONE PRN Reason: KVO Stop: 05/20/17 23:45 Last Admin: 05/20/17 20:55 Dose: 25 mls/hr Dextrose/Lactated Ringer's (Dextrose 5%-Lactated Ringers) 1,000 mls @ 60 mls/ hr IV ASDIRECTED [facility] Last Admin: 05/22/17 01:07 Dose: 60 mls/hr Ciprofloxacin/Dextrose 400 mg/ (Premix) 200 mls @ 200 mls/hr IV Q12H [facility] Last Admin: 05/21/17 12:11 Dose: Not Given Sodium Chloride (Normal Saline) 80 mls @ 3 mls/sec IV ASDIRECTED [facility] Last Admin: 05/22/17 05:07 Dose: 3 mls/sec Lactated Ringer's (Ringers, Lactated) 1,000 mls @ 25 mls/hr IV ASDIRECTED [facility] Last Admin: 05/22/17 13:27 Dose: 25 mls/hr Iopamidol (Isovue-300 (61%)) 100 ml IV . DIRECTED [facility] Last Admin: 05/22/17 05:07 Dose: 100 ml Levothyroxine Sodium (Synthroid) 125 mcg PO DAILY [facility] Last Admin: 05/18/17 21:31 Dose: 125 mcg Lorazepam (Ativan) 1 mg IV Q6H PRN PRN Reason: Nausea/Vomiting Magnesium Citrate (Citrate Of Magnesia) 237 ml PO ONETIME ONE Stop: 05/21/17 09:01 Last Admin: 05/21/17 08:05 Dose: 237 ml Methylprednisolone Acetate (Depo-Medrol) Confirm Administered Dose 80 mg .ROUTE .STK-MED ONE Stop: 05/20/17 10:33 Midazolam HCl (Versed 1 Mg/Ml) Confirm Administered Dose 2 mg .ROUTE .STK-MED ONE Stop: 05/18/17 06:35 Midazolam HCl (Versed 1 Mg/Ml) Confirm Administered Dose 2 mg .ROUTE .STK-MED ONE Stop: 05/20/17 09:50 Neostigmine Methylsulfate (Neostigmine) Confirm Administered Dose 5 mg .ROUTE .STK-MED ONE Stop: 05/20/17 09:49 Ondansetron HCl (Zofran) Confirm Administered Dose 4 mg .ROUTE .STK-MED ONE Stop: 05/20/17 09:49 Oxycodone HCl (Oxycodone) 5 mg PO Q4H PRN PRN Reason: Pain (moderate 4-6) Last Admin: 05/18/17 01:32 Dose: 5 mg Polyethylene Glycol (Miralax) 17 gm PO BID [facility] Last Admin: 05/22/17 20:52 Dose: Not Given Propofol (Diprivan 20 Ml) Confirm Administered Dose 200 mg .ROUTE .STK-MED ONE Stop: 05/18/17 06:34 Propofol (Diprivan 20 Ml) Confirm Administered Dose 200 mg .ROUTE .STK-MED ONE Stop: 05/19/17 09:36 Propofol (Diprivan 20 Ml) Confirm Administered Dose 200 mg .ROUTE .STK-MED ONE Stop: 05/20/17 09:49 Rocuronium [place] (Zemuron) Confirm Administered Dose 50 mg .ROUTE .STK-MED ONE Stop: 05/20/17 09:49 Rocuronium [place] (Zemuron) Confirm Administered Dose 50 mg .ROUTE .STK-MED ONE Stop: 05/20/17 12:13 Sodium Chloride (Saline Flush) 10 ml FLUSH ASDIRECTED PRN PRN Reason: Keep Vein Open Last Admin: 05/22/17 05:06 Dose: 10 ml Succinylcholine Chloride (Succinylcholine In Ns Pf) Confirm Administered Dose 200 mg .ROUTE .STK-MED ONE Stop: 05/20/17 09:49 - Exam Quality Assessment: supplemental oxygen, DVT prophylaxis General: alert, oriented, cooperative, no acute distress Lungs: Clear to auscultation, Normal respiratory effort Cardiovascular: Regular Rate, Regular Rhythm, No Murmurs Abdomen: bowel sounds present, soft, no tenderness, no distension Extremities: edema Skin: warm, dry, intact - Problem List Review Problem List Initiated/Reviewed/Updated: Yes - My Orders Last 24 Hours: My Active Orders 05/22/17 13:05 LORazepam [Ativan] 0.5 mg IVPUSH Q4H PRN 05/22/17 17:39 Consult to Physical Therapy [PT Evaluation and Treatment] [CONS] Routine 05/23/17 12:16 HYDROmorphone [Dilaudid] 2 mg PO Q3H PRN Convert IV to Saline Lock [OM.PC] Routine 05/23/17 12:30 Tamsulosin [Flomax] 0.4 mg PO DAILY 05/23/17 21:00 Melatonin 9 mg PO BEDTIME 05/24/17 05:00 BASIC METABOLIC PANEL,BMP [CHEM] Timed CBC WITH AUTO DIFF [HEME] Timed - Plan Plan:: ASSESSMENT / PLAN Empyema of right lung - large size of the empyema with stable vital signs. Decortication performed 3 days ago, resulting in marked improvement in aeration. Vital signs stable, afebrile. Continues to slowly improve with current management -Cultures growing staph epidermidis and strep viridans -Doxycycline and levofloxacin -continue pulse ox -Supplement oxygen as needed -Follow-up chest x-ray in the morning -Chest tube management per surgical team Bladder outlet obstruction-frequent episodes of urination with elevated post void residual bladder scan -Flomax 0.4 mg by mouth daily Peripheral edema-significantly improved since yesterday, good diuresis with IV furosemide. Patient prefers to hold on any further diuretic because of difficulties with urination. -Reassess in a.m. Maintenance issues -Nutrition: Regular diet -Gonzales catheter not indicated at this time -DVT: SCD -GI: PPI Disposition; anticipate discharge to home after the hospital stay Primary care provider: Jordin Varner NP, [facility]
[2017-05-23] MEDS: HYDROmorphone 2 MG Tab PO PRN (13:27)
[2017-05-23] MEDS: Tamsulosin 0.4 MG Cap.ER PO SCH (13:27)
[2017-05-23] MEDS: Melatonin 3 MG Tab PO SCH (20:21)
[2017-05-23] MEDS: Levofloxacin/Dextrose 5%-Water 750 MG in Premix Bag 1 BAG IV SCH (20:35)
[2017-05-24] MEDS: Levothyroxine 100 MCG, Levothyroxine 25 MCG PO SCH ×2 (08:21)
[2017-05-24] MEDS: Tamsulosin 0.4 MG Cap.ER PO SCH (08:21)
[2017-05-24] MEDS: Lactobacillus Rhamnosus GG (Probiotic) Cap PO SCH ×2 (08:24→21:18)
--- NOTE | 2017-05-24 08:49 | PN ---
DATE OF SERVICE: 05/24/2017 SUBJECTIVE: George had a temperature max of 99.2. Chest tube drainage #1 was 140 and chest tube drainage #2 was 20. He does report frustration with having frequent urination with small amounts, and he also has been incontinent. He said this started about two weeks prior to hospitalization. He was started on Flomax by Junaid Vigil MD yesterday. REVIEW OF SYSTEMS: Remainder of review of systems is negative for any pertinent positives or negatives. PHYSICAL EXAMINATION: GENERAL: George Blackwell is a 76-year-old male. He is sitting up in the chair, color pale. VITAL SIGNS: TPR 98.4, 84, 17, blood pressure 125/76, O2 sats by pulse oximetry 94% on 1 L of O2. HEENT: Negative. NECK: Supple. HEART: Regular rate and rhythm. LUNGS: Reveal decreased breath sounds with some rales on the right. Chest tube dressings are dry and intact. ABDOMEN: Negative. EXTREMITIES: Without peripheral edema. ASSESSMENT: 1. Right thoracostomy with evacuation of fibrous pleural exudate, wedge biopsy of right lower lobe and right middle lobe, total pulmonary decortication and closing of intrapleural pneumolysis for right and pain associated with diffuse fibrous exudate lungs, right lung enlarge pleural fibrinous deposits on 05/20/2017. 2. Right tube thoracostomy for right empyema on 05/18/2017. 3. Urinary frequency. PLAN: 1. Continue same orders. 2. CT of abdomen and pelvis, scheduled for Friday05/26/2017 at 0400. He is to be n.p.o. after midnight. 3. We will evaluate p.r.n. or in a.m. Ayleen Sharma PA-C /[id number]
[2017-05-24] MEDS: Doxycycline 100 MG in Sodium Chloride 0.9% 100 ML IV SCH ×2 (09:56→22:49)
[2017-05-24] MEDS ORDERED: Loperamide 2 MG Cap PO PRN (11:54)
--- NOTE | 2017-05-24 11:58 | PCM.PN ---
- General Info Date of Service: 05/24/17 Functional Status: Reports: pain controlled, tolerating diet, ambulating - Review of Systems General: Reports: Weakness. Denies: Fever, Chills Pulmonary: Reports: shortness of breath, pleuritic chest pain. Denies: cough, sputum, hemoptysis, wheezing Cardiovascular: Reports: Dyspnea on Exertion, Edema. Denies: Chest Pain, Palpitations, Orthopnea, PND Gastrointestinal: Reports: No symptoms Systems Review Comment:: Mr. Blackwell has remained stable since yesterday, vital signs have been good and he has remained afebrile. White blood cell count is further improved and at this time is only mildly elevated. He feels less short of breath but continues to have chest wall pain related to the chest tubes. Difficulty sleeping last night because of diarrhea after having received bowel stimulation. - Patient Data Vitals - most recent: Last Vital Signs Temp 98.4 F 05/24/17 07:09 Pulse 84 05/24/17 07:09 Resp 17 05/24/17 07:09 BP 125/76 05/24/17 07:09 Pulse Ox 93 L 05/24/17 10:08 Weight - most recent: 182 lb 2.017 oz I&O - last 24 hours: Intake & Output 05/23/17 05/24/17 05/24/17 22:59 06:59 14:59 Intake Total 550 300 420 Output Total 850 660 400 Balance -300 -360 20 Lab Results last 24 hrs: Laboratory Results - last 24 hr 05/24/17 05/24/17 Range/Units 05:30 05:30 WBC 13.1 H (4.5-11.0) K/uL RBC 3.71 L (4.30-5.90) M/uL Hgb 11.7 L (12.0-15.0) g/dL Hct 35.1 L (40.0-54.0) % MCV 95 (80-98) fL MCH 32 H (27-31) pg MCHC 33 (32-36) % Plt Count 376 (150-400) K/uL Add Manual Diff Yes Neutrophils % (Manual) 76 H (36-66) % Lymphocytes % (Manual) 17 L (24-44) % Monocytes % (Manual) 7 H (2-6) % Sodium 137 L (140-148) mmol/L Potassium 3.9 (3.6-5.2) mmol/L Chloride 102 (100-108) mmol/L Carbon Dioxide 28 (21-32) mmol/L Anion Gap 10.9 (5.0-14.0) mmol/L BUN 10 (7-18) mg/dL Creatinine 1.0 (0.8-1.3) mg/dL Est Cr Clr Drug Dosing 63.61 mL/min Estimated GFR (MDRD) > 60 (>60) Glucose 119 H (74-106) mg/dL Calcium 8.4 L (8.5-10.1) mg/dL [place] Results last 24 hrs: Microbiology 05/20/17 14:46 Gram Stain - Final Pleural Fluid - Pleural Cavity, Right Wound Culture - Final NO GROWTH AFTER 3 DAYS Anaerobic Culture - Final NO GROWTH AFTER 3 DAYS 05/23/17 17:37 Clostridium difficile (PCR) - Final Stool / Feces NEGATIVE CDIFF TOXIN Med Orders - Current: Current Medications Acetaminophen (Tylenol) 650 mg PO Q4H PRN PRN Reason: PAIN Bisacodyl (Dulcolax) 5 mg PO DAILY PRN PRN Reason: Constipation Guaifenesin/Codeine Phosphate (Robitussin Ac) 10 ml PO Q4H PRN PRN Reason: Cough Hydromorphone HCl (Dilaudid) 2 mg PO Q3H PRN PRN Reason: Pain Last Admin: 05/23/17 13:27 Dose: 2 mg Levofloxacin/Dextrose 750 mg/ (Premix) 150 mls @ 100 mls/hr IV Q24H [facility] Last Admin: 05/23/17 20:35 Dose: 100 mls/hr Doxycycline Hyclate 100 mg/ (Sodium Chloride) 100 mls @ 100 mls/hr IV Q12H [facility] Last Admin: 05/24/17 09:56 Dose: 100 mls/hr Lactobacillus Rhamnosus (Culturelle) 2 cap PO BID [facility] Last Admin: 05/24/17 08:24 Dose: 2 cap Levothyroxine Sodium 100 mcg/ (Levothyroxine Sodium 25 mcg) 125 mcg PO DAILY@ 0730 [facility] Last Admin: 05/24/17 08:21 Dose: 125 mcg Lorazepam (Ativan) 0.5 mg IVPUSH Q4H PRN PRN Reason: Anxiety Last Admin: 05/23/17 23:53 Dose: 0.5 mg Magnesium Hydroxide (Milk Of Magnesia) 30 ml PO BID PRN PRN Reason: Constipation Melatonin (Melatonin) 9 mg PO BEDTIME [facility] Last Admin: 05/23/17 20:21 Dose: 9 mg Morphine Sulfate (Morphine) 2 mg IVPUSH Q2H PRN PRN Reason: Pain (severe 7-10) Naloxone HCl (Narcan) 0.1 mg IV ASDIRECTED PRN PRN Reason: decreased respiratory rate Ondansetron HCl (Zofran Odt) 4 mg PO Q6H PRN PRN Reason: Nausea able to take PO Ondansetron HCl (Zofran) 4 mg IV Q4H PRN PRN Reason: Nausea/Vomiting Tamsulosin HCl (Flomax) 0.4 mg PO DAILY [facility] Last Admin: 05/24/17 08:21 Dose: 0.4 mg Tizanidine HCl (Zanaflex) 2 mg PO Q6H PRN PRN Reason: Muscle Spasm Last Admin: 05/18/17 21:32 Dose: 2 mg Discontinued Medications Bupivacaine HCl/Epinephrine Bitart (Marcaine 0.5%/Epinephrine 1:200,000) Confirm Administered Dose 50 ml .ROUTE .STK-MED ONE Stop: 05/18/17 08:31 Last Admin: 05/18/17 11:05 Dose: 2 ml Bupivacaine HCl/Epinephrine Bitart (Marcaine 0.5%/Epinephrine 1:200,000) Confirm Administered Dose 50 ml .ROUTE .STK-MED ONE Stop: 05/19/17 08:00 Last Admin: 05/19/17 09:58 Dose: 5 ml Bupivacaine HCl/Epinephrine Bitart (Marcaine 0.5%/Epinephrine 1:200,000) Confirm Administered Dose 50 ml .ROUTE .STK-MED ONE Stop: 05/20/17 10:16 Cyclobenzaprine HCl (Flexeril) 10 mg PO TID [facility] Last Admin: 05/18/17 14:24 Dose: Not Given Dexamethasone (Dexamethasone) Confirm Administered Dose 4 mg .ROUTE .STK-MED ONE Stop: 05/20/17 09:49 Docusate Sodium (Colace) 100 mg PO BID PRN PRN Reason: Constipation Docusate Sodium (Colace) 100 mg PO BID [facility] Last Admin: 05/22/17 20:51 Dose: Not Given Fentanyl (Sublimaze) Confirm Administered Dose 100 mcg .ROUTE .STK-MED ONE Stop: 05/18/17 06:34 Fentanyl (Sublimaze) Confirm Administered Dose 100 mcg .ROUTE .STK-MED ONE Stop: 05/19/17 09:36 Fentanyl (Sublimaze) Confirm Administered Dose 250 mcg .ROUTE .STK-MED ONE Stop: 05/20/17 09:50 Fentanyl (Sublimaze) Confirm Administered Dose 250 mcg .ROUTE .STK-MED ONE Stop: 05/20/17 12:06 Furosemide (Lasix) 20 mg IVPUSH NOW ONE Stop: 05/22/17 13:31 Last Admin: 05/22/17 13:26 Dose: 20 mg Glycopyrrolate () Confirm Administered Dose 1 mg .ROUTE .STK-MED ONE Stop: 05/20/17 09:49 Hydromorphone HCl (Dilaudid Date Pitter 15 Mg In Ns 30 Ml) 0 mg IV ASDIRECTED PRN; Protocol 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 Last Admin: 05/22/17 15:25 Dose: 15 mg Sodium Chloride (Normal Saline) 1,000 mls @ 150 mls/hr IV ASDIRECTED [facility] Last Admin: 05/17/17 20:33 Dose: 150 mls/hr Lactated Ringer's (Ringers, Lactated) 1,000 mls @ 125 mls/hr IV ASDIRECTED [facility] Last Admin: 05/18/17 00:22 Dose: 125 mls/hr Piperacillin Sod/Tazobactam (Sod 3.375 gm/ Sodium Chloride) 50 mls @ 100 mls/ hr IV Q6H [facility] Last Admin: 05/18/17 06:11 Dose: 100 mls/hr Sodium Chloride (Normal Saline) Confirm Administered Dose 200 mls @ as directed .ROUTE .STK-MED ONE Stop: 05/18/17 00:07 Last Admin: 05/18/17 00:32 Dose: Not Given Sodium Chloride (Normal Saline) Confirm Administered Dose 100 mls @ as directed .ROUTE .STK-MED ONE Stop: 05/18/17 00:09 Last Admin: 05/18/17 00:24 Dose: 50 ml Piperacillin/Tazobactam/ (Dextrose 3.375 gm/ Premix) 50 mls @ 100 mls/hr IV Q6H [facility] Last Admin: 05/20/17 05:16 Dose: 100 mls/hr Lactated Ringer's (Ringers, Lactated) 1,000 mls @ 75 mls/hr IV ASDIRECTED [facility] Last Admin: 05/19/17 05:39 Dose: 75 mls/hr Lactated Ringer's (Ringers, Lactated) 1,000 mls @ 0 mls/hr IV ASDIRECTED [facility] PRN Reason: KVO Last Infusion: 05/19/17 23:55 Dose: 100 mls/hr Lactated Ringer's (Ringers, Lactated) 1,000 mls @ 100 mls/hr IV ASDIRECTED [facility] Linezolid 600 mg/ Premix 300 mls @ 300 mls/hr IV ONCALL ONE Stop: 05/20/17 10:59 Last Admin: 05/20/17 10:34 Dose: 300 mls/hr Linezolid 600 mg/ Premix 300 mls @ 300 mls/hr IV Q12H [facility] Last Admin: 05/20/17 22:38 Dose: 300 mls/hr Linezolid (Zyvox) Confirm Administered Dose 100 mls @ as directed .ROUTE .STK- MED ONE Stop: 05/20/17 12:21 Lactated Ringer's (Ringers, Lactated) Confirm Administered Dose 1,000 mls @ as directed .ROUTE .STK-MED ONE Stop: 05/20/17 12:57 Dextrose/Lactated Ringer's (Dextrose 5%-Lactated Ringers) 1,000 mls @ 125 mls/ hr IV ASDIRECTED [facility] Last Admin: 05/21/17 06:59 Dose: 60 mls/hr Sodium Chloride (Normal Saline) 500 mls @ 0 mls/hr IV UPON ONE PRN Reason: KVO Stop: 05/20/17 23:45 Last Admin: 05/20/17 20:55 Dose: 25 mls/hr Dextrose/Lactated Ringer's (Dextrose 5%-Lactated Ringers) 1,000 mls @ 60 mls/ hr IV ASDIRECTED [facility] Last Admin: 05/22/17 01:07 Dose: 60 mls/hr Ciprofloxacin/Dextrose 400 mg/ (Premix) 200 mls @ 200 mls/hr IV Q12H [facility] Last Admin: 05/21/17 12:11 Dose: Not Given Sodium Chloride (Normal Saline) 80 mls @ 3 mls/sec IV ASDIRECTED [facility] Last Admin: 05/22/17 05:07 Dose: 3 mls/sec Lactated Ringer's (Ringers, Lactated) 1,000 mls @ 25 mls/hr IV ASDIRECTED [facility] Last Admin: 05/22/17 13:27 Dose: 25 mls/hr Iopamidol (Isovue-300 (61%)) 100 ml IV . DIRECTED [facility] Last Admin: 05/22/17 05:07 Dose: 100 ml Levothyroxine Sodium (Synthroid) 125 mcg PO DAILY [facility] Last Admin: 05/18/17 21:31 Dose: 125 mcg Lorazepam (Ativan) 1 mg IV Q6H PRN PRN Reason: Nausea/Vomiting Magnesium Citrate (Citrate Of Magnesia) 237 ml PO ONETIME ONE Stop: 05/21/17 09:01 Last Admin: 05/21/17 08:05 Dose: 237 ml Methylprednisolone Acetate (Depo-Medrol) Confirm Administered Dose 80 mg .ROUTE .STK-MED ONE Stop: 05/20/17 10:33 Midazolam HCl (Versed 1 Mg/Ml) Confirm Administered Dose 2 mg .ROUTE .STK-MED ONE Stop: 05/18/17 06:35 Midazolam HCl (Versed 1 Mg/Ml) Confirm Administered Dose 2 mg .ROUTE .STK-MED ONE Stop: 05/20/17 09:50 Neostigmine Methylsulfate (Neostigmine) Confirm Administered Dose 5 mg .ROUTE .STK-MED ONE Stop: 05/20/17 09:49 Ondansetron HCl (Zofran) Confirm Administered Dose 4 mg .ROUTE .STK-MED ONE Stop: 05/20/17 09:49 Oxycodone HCl (Oxycodone) 5 mg PO Q4H PRN PRN Reason: Pain (moderate 4-6) Last Admin: 05/18/17 01:32 Dose: 5 mg Polyethylene Glycol (Miralax) 17 gm PO BID [facility] Last Admin: 05/22/17 20:52 Dose: Not Given Propofol (Diprivan 20 Ml) Confirm Administered Dose 200 mg .ROUTE .STK-MED ONE Stop: 05/18/17 06:34 Propofol (Diprivan 20 Ml) Confirm Administered Dose 200 mg .ROUTE .STK-MED ONE Stop: 05/19/17 09:36 Propofol (Diprivan 20 Ml) Confirm Administered Dose 200 mg .ROUTE .STK-MED ONE Stop: 05/20/17 09:49 Rocuronium [place] (Zemuron) Confirm Administered Dose 50 mg .ROUTE .STK-MED ONE Stop: 05/20/17 09:49 Rocuronium [place] (Zemuron) Confirm Administered Dose 50 mg .ROUTE .STK-MED ONE Stop: 05/20/17 12:13 Sodium Chloride (Saline Flush) 10 ml FLUSH ASDIRECTED PRN PRN Reason: Keep Vein Open Last Admin: 05/22/17 05:06 Dose: 10 ml Succinylcholine Chloride (Succinylcholine In Ns Pf) Confirm Administered Dose 200 mg .ROUTE .STK-MED ONE Stop: 05/20/17 09:49 - Exam Quality Assessment: supplemental oxygen, DVT prophylaxis General: alert, oriented, cooperative, mild distress Lungs: Clear to auscultation, Normal respiratory effort Cardiovascular: Regular Rate, Regular Rhythm, No Murmurs Abdomen: bowel sounds present, soft, no tenderness, no distension Extremities: edema Skin: warm, dry, intact - Problem List Review Problem List Initiated/Reviewed/Updated: Yes - My Orders Last 24 Hours: My Active Orders 05/23/17 12:16 HYDROmorphone [Dilaudid] 2 mg PO Q3H PRN Convert IV to Saline Lock [OM.PC] Routine 05/23/17 12:30 Tamsulosin [Flomax] 0.4 mg PO DAILY 05/23/17 21:00 Melatonin 9 mg PO BEDTIME 05/24/17 11:54 Loperamide [Imodium] 2 mg PO Q4H PRN - Plan Plan:: ASSESSMENT / PLAN Empyema of right lung - large size of the empyema with stable vital signs. Decortication performed 3 days ago, resulting in marked improvement in aeration. Vital signs stable, afebrile. Continues to slowly improve with current management -Cultures growing staph epidermidis and strep viridans -Doxycycline and levofloxacin -continue pulse ox -Supplement oxygen as needed -Follow-up chest x-ray in the morning -Chest tube management per surgical team Bladder outlet obstruction-frequent episodes of urination with elevated post void residual bladder scan -Flomax 0.4 mg by mouth daily Peripheral edema-significantly improved, good diuresis with IV furosemide. Patient prefers to hold on any further diuretic because of difficulties with urination. -Reassess in a.m. Maintenance issues -Nutrition: Regular diet -Gonzales catheter not indicated at this time -DVT: SCD -GI: PPI Disposition; anticipate discharge to home after the hospital stay Primary care provider: Jordin Varner NP, [facility]
[2017-05-24] MEDS: HYDROmorphone 2 MG Tab PO PRN ×2 (17:13→22:49)
[2017-05-24] MEDS: Melatonin 3 MG Tab PO SCH (21:19)
[2017-05-24] MEDS: Levofloxacin/Dextrose 5%-Water 750 MG in Premix Bag 1 BAG IV SCH (21:19)
[2017-05-25] MEDS: HYDROmorphone 2 MG Tab PO PRN ×5 (02:25→21:09)
[2017-05-25] MEDS: Lactobacillus Rhamnosus GG (Probiotic) Cap PO SCH ×2 (08:01→21:09)
[2017-05-25] MEDS: Tamsulosin 0.4 MG Cap.ER PO SCH (08:01)
[2017-05-25] MEDS: Levothyroxine 100 MCG, Levothyroxine 25 MCG PO SCH ×2 (08:01)
[2017-05-25] MEDS: Doxycycline 100 MG in Sodium Chloride 0.9% 100 ML IV SCH ×2 (10:19→22:37)
--- NOTE | 2017-05-25 12:22 | PCM.PN ---
- General Info Date of Service: 05/25/17 Functional Status: Reports: pain controlled, ambulating, urinating - Review of Systems General: Reports: Weakness. Denies: Fever, Chills Pulmonary: Reports: shortness of breath, pleuritic chest pain. Denies: cough, sputum, hemoptysis, wheezing Cardiovascular: Reports: Dyspnea on Exertion, Edema. Denies: Chest Pain, Palpitations, Orthopnea, PND, Lightheadedness Gastrointestinal: Reports: No symptoms Systems Review Comment:: Mr. Blackwell has improved over the past 24 hours, he reports less short of breath and slowly improved energy level. Appetite seems to be somewhat better, vital signs have been stable and he has remained afebrile. Current plan is to remove chest tubes tomorrow with possible discharge to home on Friday. - Patient Data Vitals - most recent: Last Vital Signs Temp 96.5 F 05/25/17 11:06 Pulse 89 05/25/17 11:06 Resp 16 05/25/17 11:06 BP 116/57 L 05/25/17 11:06 Pulse Ox 97 05/25/17 11:06 Weight - most recent: 182 lb 2.017 oz I&O - last 24 hours: Intake & Output 05/24/17 05/25/17 05/25/17 22:59 06:59 14:59 Intake Total 120 350 Output Total 1000 460 650 Balance -880 -110 -650 Lab Results last 24 hrs: Laboratory Results - last 24 hr 05/25/17 05/25/17 Range/Units 04:43 04:43 WBC 12.3 H (4.5-11.0) K/uL RBC 3.75 L (4.30-5.90) M/uL Hgb 11.5 L (12.0-15.0) g/dL Hct 35.7 L (40.0-54.0) % MCV 95 (80-98) fL MCH 31 (27-31) pg MCHC 32 (32-36) % Plt Count 407 H (150-400) K/uL Sodium 137 L (140-148) mmol/L Potassium 3.8 (3.6-5.2) mmol/L Chloride 103 (100-108) mmol/L Carbon Dioxide 29 (21-32) mmol/L Anion Gap 8.8 (5.0-14.0) mmol/L BUN 11 (7-18) mg/dL Creatinine 1.0 (0.8-1.3) mg/dL Est Cr Clr Drug Dosing 63.61 mL/min Estimated GFR (MDRD) > 60 (>60) Glucose 111 H (74-106) mg/dL Calcium 8.1 L (8.5-10.1) mg/dL Phosphorus 3.7 (2.5-4.9) mg/dL Magnesium 2.0 (1.8-2.4) mg/dL Total Bilirubin 0.4 D (0.2-1.0) mg/dL AST 45 H (15-37) U/L ALT 38 (12-78) U/L Alkaline Phosphatase 96 (46-116) U/L Total Protein 6.4 (6.4-8.2) g/dL Albumin 1.6 L (3.4-5.0) g/dL Globulin 4.8 H (2.3-3.5) g/dL Albumin/Globulin Ratio 0.3 L (1.2-2.2) Med Orders - Current: Current Medications Acetaminophen (Tylenol) 650 mg PO Q4H PRN PRN Reason: PAIN Bisacodyl (Dulcolax) 5 mg PO DAILY PRN PRN Reason: Constipation Guaifenesin/Codeine Phosphate (Robitussin Ac) 10 ml PO Q4H PRN PRN Reason: Cough Hydromorphone HCl (Dilaudid) 2 mg PO Q3H PRN PRN Reason: Pain Last Admin: 05/25/17 06:41 Dose: 2 mg Levofloxacin/Dextrose 750 mg/ (Premix) 150 mls @ 100 mls/hr IV Q24H [facility] Last Admin: 05/24/17 21:19 Dose: 100 mls/hr Doxycycline Hyclate 100 mg/ (Sodium Chloride) 100 mls @ 100 mls/hr IV Q12H [facility] Last Admin: 05/25/17 10:19 Dose: 100 mls/hr Lactobacillus Rhamnosus (Culturelle) 2 cap PO BID [facility] Last Admin: 05/25/17 08:01 Dose: 2 cap Levothyroxine Sodium 100 mcg/ (Levothyroxine Sodium 25 mcg) 125 mcg PO DAILY@ 0730 [facility] Last Admin: 05/25/17 08:01 Dose: 125 mcg Loperamide HCl (Imodium) 2 mg PO Q4H PRN PRN Reason: Diarrhea Lorazepam (Ativan) 0.5 mg IVPUSH Q4H PRN PRN Reason: Anxiety Last Admin: 05/23/17 23:53 Dose: 0.5 mg Magnesium Hydroxide (Milk Of Magnesia) 30 ml PO BID PRN PRN Reason: Constipation Melatonin (Melatonin) 9 mg PO BEDTIME [facility] Last Admin: 05/24/17 21:19 Dose: 9 mg Morphine Sulfate (Morphine) 2 mg IVPUSH Q2H PRN PRN Reason: Pain (severe 7-10) Naloxone HCl (Narcan) 0.1 mg IV ASDIRECTED PRN PRN Reason: decreased respiratory rate Ondansetron HCl (Zofran Odt) 4 mg PO Q6H PRN PRN Reason: Nausea able to take PO Ondansetron HCl (Zofran) 4 mg IV Q4H PRN PRN Reason: Nausea/Vomiting Tamsulosin HCl (Flomax) 0.4 mg PO DAILY [facility] Last Admin: 05/25/17 08:01 Dose: 0.4 mg Tizanidine HCl (Zanaflex) 2 mg PO Q6H PRN PRN Reason: Muscle Spasm Last Admin: 05/18/17 21:32 Dose: 2 mg Discontinued Medications Bupivacaine HCl/Epinephrine Bitart (Marcaine 0.5%/Epinephrine 1:200,000) Confirm Administered Dose 50 ml .ROUTE .STK-MED ONE Stop: 05/18/17 08:31 Last Admin: 05/18/17 11:05 Dose: 2 ml Bupivacaine HCl/Epinephrine Bitart (Marcaine 0.5%/Epinephrine 1:200,000) Confirm Administered Dose 50 ml .ROUTE .STK-MED ONE Stop: 05/19/17 08:00 Last Admin: 05/19/17 09:58 Dose: 5 ml Bupivacaine HCl/Epinephrine Bitart (Marcaine 0.5%/Epinephrine 1:200,000) Confirm Administered Dose 50 ml .ROUTE .STK-MED ONE Stop: 05/20/17 10:16 Cyclobenzaprine HCl (Flexeril) 10 mg PO TID [facility] Last Admin: 05/18/17 14:24 Dose: Not Given Dexamethasone (Dexamethasone) Confirm Administered Dose 4 mg .ROUTE .STK-MED ONE Stop: 05/20/17 09:49 Docusate Sodium (Colace) 100 mg PO BID PRN PRN Reason: Constipation Docusate Sodium (Colace) 100 mg PO BID [facility] Last Admin: 05/22/17 20:51 Dose: Not Given Fentanyl (Sublimaze) Confirm Administered Dose 100 mcg .ROUTE .STK-MED ONE Stop: 05/18/17 06:34 Fentanyl (Sublimaze) Confirm Administered Dose 100 mcg .ROUTE .STK-MED ONE Stop: 05/19/17 09:36 Fentanyl (Sublimaze) Confirm Administered Dose 250 mcg .ROUTE .STK-MED ONE Stop: 05/20/17 09:50 Fentanyl (Sublimaze) Confirm Administered Dose 250 mcg .ROUTE .STK-MED ONE Stop: 05/20/17 12:06 [facility]urosemide (Lasix) [facility] Stop: 05/22/17 13:31 Last Admin: 05/22/17 13:26 Dose: 20 mg Glycopyrrolate () Confirm Administered Dose 1 mg .ROUTE .STK-MED ONE Stop: 05/20/17 09:49 Hydromorphone HCl (Dilaudid Concierge Manager 15 Mg In Ns 30 Ml) 0 mg IV ASDIRECTED PRN; Protocol PRN 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 Last Admin: 05/22/17 15:25 Dose: 15 mg Sodium Chloride (Normal Saline) 1,000 mls @ 150 mls/hr IV ASDIRECTED [facility] Last Admin: 05/17/17 20:33 Dose: 150 mls/hr Lactated Ringer's (Ringers, Lactated) 1,000 mls @ 125 mls/hr IV ASDIRECTED [facility] Last Admin: 05/18/17 00:22 Dose: 125 mls/hr Piperacillin Sod/Tazobactam (Sod 3.375 gm/ Sodium Chloride) 50 mls @ 100 mls/ hr IV Q6H [facility] Last Admin: 05/18/17 06:11 Dose: 100 mls/hr Sodium Chloride (Normal Saline) Confirm Administered Dose 200 mls @ as directed .ROUTE .STK-MED ONE Stop: 05/18/17 00:07 Last Admin: 05/18/17 00:32 Dose: Not Given Sodium Chloride (Normal Saline) Confirm Administered Dose 100 mls @ as directed .ROUTE .STK-MED ONE Stop: 05/18/17 00:09 Last Admin: 05/18/17 00:24 Dose: 50 ml Piperacillin/Tazobactam/ (Dextrose 3.375 gm/ Premix) 50 mls @ 100 mls/hr IV Q6H [facility] Last Admin: 05/20/17 05:16 Dose: 100 mls/hr Lactated Ringer's (Ringers, Lactated) 1,000 mls @ 75 mls/hr IV ASDIRECTED [facility] Last Admin: 05/19/17 05:39 Dose: 75 mls/hr Lactated Ringer's (Ringers, Lactated) 1,000 mls @ 0 mls/hr IV ASDIRECTED JING PRN Reason: KVO Last Infusion: 05/19/17 23:55 Dose: 100 mls/hr Lactated Ringer's (Ringers, Lactated) 1,000 mls @ 100 mls/hr IV ASDIRECTED JING Linezolid 600 mg/ Premix 300 mls @ 300 mls/hr IV ONCALL ONE Stop: 05/20/17 10:59 Last Admin: 05/20/17 10:34 Dose: 300 mls/hr Linezolid 600 mg/ Premix 300 mls @ 300 mls/hr IV Q12H [facility] Last Admin: 05/20/17 22:38 Dose: 300 mls/hr Linezolid (Zyvox) Confirm Administered Dose 100 mls @ as directed .ROUTE .STK- MED ONE Stop: 05/20/17 12:21 Lactated Ringer's (Ringers, Lactated) Confirm Administered Dose 1,000 mls @ as directed .ROUTE .STK-MED ONE Stop: 05/20/17 12:57 Dextrose/Lactated Ringer's (Dextrose 5%-Lactated Ringers) 1,000 mls @ 125 mls/ hr IV ASDIRECTED [facility] Last Admin: 05/21/17 06:59 Dose: 60 mls/hr Sodium Chloride (Normal Saline) 500 mls @ 0 mls/hr IV UPON ONE PRN Reason: KVO Stop: 05/20/17 23:45 Last Admin: 05/20/17 20:55 Dose: 25 mls/hr Dextrose/Lactated Ringer's (Dextrose 5%-Lactated Ringers) 1,000 mls @ 60 mls/ hr IV ASDIRECTED [facility] Last Admin: 05/22/17 01:07 Dose: 60 mls/hr Ciprofloxacin/Dextrose 400 mg/ (Premix) 200 mls @ 200 mls/hr IV Q12H [facility] Last Admin: 05/21/17 12:11 Dose: Not Given Sodium Chloride (Normal Saline) 80 mls @ 3 mls/sec IV ASDIRECTED [facility] Last Admin: 05/22/17 05:07 Dose: 3 mls/sec Lactated Ringer's (Ringers, Lactated) 1,000 mls @ 25 mls/hr IV ASDIRECTED [facility] Last Admin: 05/22/17 13:27 Dose: 25 mls/hr Iopamidol (Isovue-300 (61%)) 100 ml IV . DIRECTED [facility] Last Admin: 05/22/17 05:07 Dose: 100 ml Levothyroxine Sodium (Synthroid) 125 mcg PO DAILY [facility] Last Admin: 05/18/17 21:31 Dose: 125 mcg Lorazepam (Ativan) 1 mg IV Q6H PRN PRN Reason: Nausea/Vomiting Magnesium Citrate (Citrate Of Magnesia) 237 ml PO ONETIME ONE Stop: 05/21/17 09:01 Last Admin: 05/21/17 08:05 Dose: 237 ml Methylprednisolone Acetate (Depo-Medrol) Confirm Administered Dose 80 mg .ROUTE .STK-MED ONE Stop: 05/20/17 10:33 Midazolam HCl (Versed 1 Mg/Ml) Confirm Administered Dose 2 mg .ROUTE .STK-MED ONE Stop: 05/18/17 06:35 Midazolam HCl (Versed 1 Mg/Ml) Confirm Administered Dose 2 mg .ROUTE .STK-MED ONE Stop: 05/20/17 09:50 Neostigmine Methylsulfate (Neostigmine) Confirm Administered Dose 5 mg .ROUTE .STK-MED ONE Stop: 05/20/17 09:49 Ondansetron HCl (Zofran) Confirm Administered Dose 4 mg .ROUTE .STK-MED ONE Stop: 05/20/17 09:49 Oxycodone HCl (Oxycodone) 5 mg PO Q4H PRN PRN Reason: Pain (moderate 4-6) Last Admin: 05/18/17 01:32 Dose: 5 mg Polyethylene Glycol (Miralax) 17 gm PO BID [facility] Last Admin: 05/22/17 20:52 Dose: Not Given Propofol (Diprivan 20 Ml) Confirm Administered Dose 200 mg .ROUTE .STK-MED ONE Stop: 05/18/17 06:34 Propofol (Diprivan 20 Ml) Confirm Administered Dose 200 mg .ROUTE .STK-MED ONE Stop: 05/19/17 09:36 Propofol (Diprivan 20 Ml) Confirm Administered Dose 200 mg .ROUTE .STK-MED ONE Stop: 05/20/17 09:49 Rocuronium Hardin (Zemuron) Confirm Administered Dose 50 mg .ROUTE .STK-MED ONE Stop: 05/20/17 09:49 Rocuronium Hardin (Zemuron) Confirm Administered Dose 50 mg .ROUTE .STK-MED ONE Stop: 05/20/17 12:13 Sodium Chloride (Saline Flush) 10 ml FLUSH ASDIRECTED PRN PRN Reason: Keep Vein Open Last Admin: 05/22/17 05:06 Dose: 10 ml Succinylcholine Chloride (Succinylcholine In Ns Pf) Confirm Administered Dose 200 mg .ROUTE .STK-MED ONE Stop: 05/20/17 09:49 - Exam Quality Assessment: DVT prophylaxis General: alert, oriented, cooperative, mild distress Lungs: Normal respiratory effort, Decreased breath sounds. No: Crackles, Rales , Rhonchi, Rub, Stridor, Wheezing Cardiovascular: Regular Rate, Regular Rhythm, No Murmurs Abdomen: bowel sounds present, soft, no tenderness, no distension Extremities: edema Skin: warm, dry, intact - Problem List Review Problem List Initiated/Reviewed/Updated: Yes - My Orders Last 24 Hours: My Active Orders 05/24/17 11:54 Loperamide [Imodium] 2 mg PO Q4H PRN 05/26/17 05:00 BASIC METABOLIC PANEL,BMP [CHEM] Timed CBC WITH AUTO DIFF [HEME] Timed - Plan Plan:: ASSESSMENT / PLAN Empyema of right lung - large size of the empyema with stable vital signs. Decortication performed 5 days ago, resulting in marked improvement in aeration. Vital signs stable, afebrile. Continues to slowly improve with current management -Cultures growing staph epidermidis and strep viridans -Doxycycline and levofloxacin -continue pulse ox -Supplement oxygen as needed -Follow-up chest x-ray in the morning -Chest tube management per surgical team Bladder outlet obstruction-frequent episodes of urination with elevated post void residual bladder scan -Flomax 0.4 mg by mouth daily Peripheral edema-significantly improved, good diuresis with IV furosemide. Patient prefers to hold on any further diuretic because of difficulties with urination. -Reassess in a.m. Maintenance issues -Nutrition: Regular diet -Gonzales catheter not indicated at this time -DVT: SCD -GI: PPI Disposition; anticipate discharge to home after the hospital stay Primary care provider: Jordin Varner NP, [facility]
[2017-05-25] MEDS: tiZANidine 2 MG Tab PO PRN (21:09)
[2017-05-25] MEDS: Levofloxacin/Dextrose 5%-Water 750 MG in Premix Bag 1 BAG IV SCH (21:09)
[2017-05-25] MEDS: Melatonin 3 MG Tab PO SCH (21:09)
[2017-05-26] MEDS: HYDROmorphone 2 MG Tab PO PRN ×6 (03:43→22:41)
[2017-05-26] MEDS: tiZANidine 2 MG Tab PO PRN (03:44)
[2017-05-26] MEDS ORDERED: Sodium Chloride 0.9% 80 ML IV SCH (07:45)
[2017-05-26] MEDS ORDERED: Sodium Chloride 0.9% 10 ML Syringe FLUSH ONE (08:00)
[2017-05-26] MEDS ORDERED: Iopamidol 612 MG/ML 150 ML Bottle IV PRN (08:00)
[2017-05-26] MEDS: Levothyroxine 100 MCG, Levothyroxine 25 MCG PO SCH ×2 (08:36)
[2017-05-26] MEDS: Tamsulosin 0.4 MG Cap.ER PO SCH (08:38)
[2017-05-26] MEDS: Lactobacillus Rhamnosus GG (Probiotic) Cap PO SCH ×2 (08:38→20:44)
--- NOTE | 2017-05-26 09:48 | CR ---
Chest 1V Frontal HISTORY: Chest tube. COMPARISON: 05/25/2016. FINDINGS: 3 right-sided chest tubes. Volume loss right hemithorax. Minimal density likely representi ng atelectatic change at the right lung base. A no focal new infiltrate. No significant pneumothorax .
[2017-05-26] MEDS: Doxycycline 100 MG in Sodium Chloride 0.9% 100 ML IV SCH ×2 (09:49→22:31)
--- NOTE | 2017-05-26 09:49 | CR ---
Chest 1V Frontal HISTORY: Follow-up chest tube. COMPARISON: 05/23/2017. FINDINGS: 3 right-sided chest tubes. No significant pneumothorax. Minimal atelectatic change right l jennie base. Left lung is clear.
--- NOTE | 2017-05-26 09:55 | CT ---
Abdomen Pelvis w Cont HISTORY: Follow-up abnormal spleen. Dose: Total DLP 902 COMPARISON: Prior CT scan 05/22/2017. FINDINGS: Lung bases demonstrate infiltrate or atelectatic change at the right lung base. Tiny right -sided effusion. Patient has 3 right-sided chest tubes more cephalad. Minimal atelectatic change lef t lung base. The liver, pancreas, adrenal glands, abdominal aorta and kidneys appear normal. The spleen again demonstrates innumerable areas of low attenuation. Differential includes small cyst s, hemangiomas versus possible infection. Infiltrating process felt to be less likely. The pelvis de monstrates prostatic enlargement no adenopathy. Impression: 1. Stable innumerable areas of low attenuation within the spleen. Differential discussed above. Marco Antonio becerril suggest follow-up ultrasound in 4-6 weeks to reevaluate. 2. Atelectatic change or infiltrate right lung base. Tiny right-sided effusion. Patient has known ri ght sided chest tubes.
--- NOTE | 2017-05-26 09:56 | CR ---
Chest 1V Frontal HISTORY: Chest tubes. COMPARISON: 05/24/2017. FINDINGS: Ray right-sided chest tubes. Minimal atelectatic change or infiltrate right lung base. Tin y right-sided effusion. Left lung is clear. No significant pneumothorax.
--- NOTE | 2017-05-26 10:09 | PCM.PN ---
- General Info Date of Service: 05/26/17 Functional Status: Reports: pain controlled, tolerating diet, ambulating - Review of Systems General: Reports: Weakness. Denies: Fever Gastrointestinal: Denies: Abdominal pain Systems Review Comment:: No acute events overnight. Occasional right-sided chest pain with hiccups and coughing. He has not required supplemental oxygen. He has not been having any fevers. Tolerating current antibiotics. Still has diarrhea but no significant abdominal pain. Energy and strength are slowly improving. Chest tubes were removed this morning without incident. - Patient Data Vitals - most recent: Last Vital Signs Temp 36.8 C 05/26/17 07:17 Pulse 80 05/26/17 07:17 Resp 12 05/26/17 07:17 BP 134/81 05/26/17 07:17 Pulse Ox 91 L 05/26/17 07:19 Weight - most recent: 82.611 kg I&O - last 24 hours: Intake & Output 05/25/17 05/26/17 05/26/17 22:59 06:59 14:59 Intake Total 940 100 Output Total 700 815 150 Balance 240 -815 -50 Lab Results last 24 hrs: Laboratory Results - last 24 hr 05/26/17 05/26/17 Range/Units 05:45 05:45 WBC 12.5 H (4.5-11.0) K/uL RBC 3.72 L (4.30-5.90) M/uL Hgb 11.5 L (12.0-15.0) g/dL Hct 35.6 L (40.0-54.0) % MCV 96 (80-98) fL MCH 31 (27-31) pg MCHC 32 (32-36) % Plt Count 386 (150-400) K/uL Add Manual Diff Yes Neutrophils % (Manual) 75 H (36-66) % Lymphocytes % (Manual) 15 L (24-44) % Monocytes % (Manual) 10 H (2-6) % Sodium 137 L (140-148) mmol/L Potassium 4.0 (3.6-5.2) mmol/L Chloride 104 (100-108) mmol/L Carbon Dioxide 26 (21-32) mmol/L Anion Gap 11.0 (5.0-14.0) mmol/L BUN 11 (7-18) mg/dL Creatinine 1.0 (0.8-1.3) mg/dL Est Cr Clr Drug Dosing 63.61 mL/min Estimated GFR (MDRD) > 60 (>60) Glucose 112 H (74-106) mg/dL Calcium 8.2 L (8.5-10.1) mg/dL Med Orders - Current: Current Medications Acetaminophen (Tylenol) 650 mg PO Q4H PRN PRN Reason: PAIN Guaifenesin/Codeine Phosphate (Robitussin Ac) 10 ml PO Q4H PRN PRN Reason: Cough Hydromorphone HCl (Dilaudid) 2 mg PO Q3H PRN PRN Reason: Pain Last Admin: 05/26/17 09:50 Dose: 2 mg Levofloxacin/Dextrose 750 mg/ (Premix) 150 mls @ 100 mls/hr IV Q24H [facility] Last Admin: 05/25/17 21:09 Dose: 100 mls/hr Doxycycline Hyclate 100 mg/ (Sodium Chloride) 100 mls @ 100 mls/hr IV Q12H [facility] Last Admin: 05/26/17 09:49 Dose: 100 mls/hr Lactobacillus Rhamnosus (Culturelle) 2 cap PO BID [facility] Last Admin: 05/26/17 08:38 Dose: 2 cap Levothyroxine Sodium 100 mcg/ (Levothyroxine Sodium 25 mcg) 125 mcg PO DAILY@ 0730 [facility] Last Admin: 05/26/17 08:36 Dose: 125 mcg Loperamide HCl (Imodium) 2 mg PO Q4H PRN PRN Reason: Diarrhea Magnesium Hydroxide (Milk Of Magnesia) 30 ml PO BID PRN PRN Reason: Constipation Melatonin (Melatonin) 9 mg PO BEDTIME [facility] Last Admin: 05/25/17 21:09 Dose: 9 mg Morphine Sulfate (Morphine) 2 mg IVPUSH Q2H PRN PRN Reason: Pain (severe 7-10) Naloxone HCl (Narcan) 0.1 mg IV ASDIRECTED PRN PRN Reason: decreased respiratory rate Ondansetron HCl (Zofran Odt) 4 mg PO Q6H PRN PRN Reason: Nausea able to take PO Ondansetron HCl (Zofran) 4 mg IV Q4H PRN PRN Reason: Nausea/Vomiting Tamsulosin HCl (Flomax) 0.4 mg PO DAILY [facility] Last Admin: 05/26/17 08:38 Dose: 0.4 mg Tizanidine HCl (Zanaflex) 2 mg PO Q6H PRN PRN Reason: Muscle Spasm Last Admin: 05/26/17 03:44 Dose: 2 mg Discontinued Medications Bisacodyl (Dulcolax) 5 mg PO DAILY PRN PRN Reason: Constipation Bupivacaine HCl/Epinephrine Bitart (Marcaine 0.5%/Epinephrine 1:200,000) Confirm Administered Dose 50 ml .ROUTE .STK-MED ONE Stop: 05/18/17 08:31 Last Admin: 05/18/17 11:05 Dose: 2 ml Bupivacaine HCl/Epinephrine Bitart (Marcaine 0.5%/Epinephrine 1:200,000) Confirm Administered Dose 50 ml .ROUTE .STK-MED ONE Stop: 05/19/17 08:00 Last Admin: 05/19/17 09:58 Dose: 5 ml Bupivacaine HCl/Epinephrine Bitart (Marcaine 0.5%/Epinephrine 1:200,000) Confirm Administered Dose 50 ml .ROUTE .STK-MED ONE Stop: 05/20/17 10:16 Cyclobenzaprine HCl (Flexeril) 10 mg PO TID [facility] Last Admin: 05/18/17 14:24 Dose: Not Given Dexamethasone (Dexamethasone) Confirm Administered Dose 4 mg .ROUTE .STK-MED ONE Stop: 05/20/17 09:49 Docusate Sodium (Colace) 100 mg PO BID PRN PRN Reason: Constipation Docusate Sodium (Colace) 100 mg PO BID [facility] Last Admin: 05/22/17 20:51 Dose: Not Given Fentanyl (Sublimaze) Confirm Administered Dose 100 mcg .ROUTE .STK-MED ONE Stop: 05/18/17 06:34 Fentanyl (Sublimaze) Confirm Administered Dose 100 mcg .ROUTE .STK-MED ONE Stop: 05/19/17 09:36 Fentanyl (Sublimaze) Confirm Administered Dose 250 mcg .ROUTE .STK-MED ONE Stop: 05/20/17 09:50 Fentanyl (Sublimaze) Confirm Administered Dose 250 mcg .ROUTE .STK-MED ONE Stop: 05/20/17 12:06 Furosemide (Lasix) 20 mg IVPUSH NOW ONE Stop: 05/22/17 13:31 Last Admin: 05/22/17 13:26 Dose: 20 mg Glycopyrrolate () Confirm Administered Dose 1 mg .ROUTE .STK-MED ONE Stop: 05/20/17 09:49 Hydromorphone HCl (Dilaudid [employer] Faculty Member 15 Mg In Ns 30 Ml) 0 mg IV ASDIRECTED PRN; Protocol PRN Reason: [employer] PAIN CONTROL Last Admin: 05/22/17 15:25 Dose: 15 mg Sodium Chloride (Normal Saline) 1,000 mls @ 150 mls/hr IV ASDIRECTED [facility] Last Admin: 05/17/17 20:33 Dose: 150 mls/hr Lactated Ringer's (Ringers, Lactated) 1,000 mls @ 125 mls/hr IV ASDIRECTED [facility] Last Admin: 05/18/17 00:22 Dose: 125 mls/hr Piperacillin Sod/Tazobactam (Sod 3.375 gm/ Sodium Chloride) 50 mls @ 100 mls/ hr IV Q6H [facility] Last Admin: 05/18/17 06:11 Dose: 100 mls/hr Sodium Chloride (Normal Saline) Confirm Administered Dose 200 mls @ as directed .ROUTE .STK-MED ONE Stop: 05/18/17 00:07 Last Admin: 05/18/17 00:32 Dose: Not Given Sodium Chloride (Normal Saline) Confirm Administered Dose 100 mls @ as directed .ROUTE .STK-MED ONE Stop: 05/18/17 00:09 Last Admin: 05/18/17 00:24 Dose: 50 ml Piperacillin/Tazobactam/ (Dextrose 3.375 gm/ Premix) 50 mls @ 100 mls/hr IV Q6H [facility] Last Admin: 05/20/17 05:16 Dose: 100 mls/hr Lactated Ringer's (Ringers, Lactated) 1,000 mls @ 75 mls/hr IV ASDIRECTED [facility] Last Admin: 05/19/17 05:39 Dose: 75 mls/hr Lactated Ringer's (Ringers, Lactated) 1,000 mls @ 0 mls/hr IV ASDIRECTED [facility] PRN Reason: KVO Last Infusion: 05/19/17 23:55 Dose: 100 mls/hr Lactated Ringer's (Ringers, Lactated) 1,000 mls @ 100 mls/hr IV ASDIRECTED [facility] Linezolid 600 mg/ Premix 300 mls @ 300 mls/hr IV ONCALL ONE Stop: 05/20/17 10:59 Last Admin: 05/20/17 10:34 Dose: 300 mls/hr Linezolid 600 mg/ Premix 300 mls @ 300 mls/hr IV Q12H [facility] Last Admin: 05/20/17 22:38 Dose: 300 mls/hr Linezolid (Zyvox) Confirm Administered Dose 100 mls @ as directed .ROUTE .STK- MED ONE Stop: 05/20/17 12:21 Lactated Ringer's (Ringers, Lactated) Confirm Administered Dose 1,000 mls @ as directed .ROUTE .STK-MED ONE Stop: 05/20/17 12:57 Dextrose/Lactated Ringer's (Dextrose 5%-Lactated Ringers) 1,000 mls @ 125 mls/ hr IV ASDIRECTED [facility] Last Admin: 05/21/17 06:59 Dose: 60 mls/hr Sodium Chloride (Normal Saline) 500 mls @ 0 mls/hr IV UPON ONE PRN Reason: KVO Stop: 05/20/17 23:45 Last Admin: 05/20/17 20:55 Dose: 25 mls/hr Dextrose/Lactated Ringer's (Dextrose 5%-Lactated Ringers) 1,000 mls @ 60 mls/ hr IV ASDIRECTED [facility] Last Admin: 05/22/17 01:07 Dose: 60 mls/hr Ciprofloxacin/Dextrose 400 mg/ (Premix) 200 mls @ 200 mls/hr IV Q12H [facility] Last Admin: 05/21/17 12:11 Dose: Not Given Sodium Chloride (Normal Saline) 80 mls @ 3 mls/sec IV ASDIRECTED [facility] Last Admin: 05/22/17 05:07 Dose: 3 mls/sec Lactated Ringer's (Ringers, Lactated) 1,000 mls @ 25 mls/hr IV ASDIRECTED [facility] Last Admin: 05/22/17 13:27 Dose: 25 mls/hr Sodium Chloride (Normal Saline) 80 mls @ 3.5 mls/sec IV ASDIRECTED [facility] Stop: 05/26/17 08:03 Last Admin: 05/26/17 08:02 Dose: 3.5 mls/sec Iopamidol (Isovue-300 (61%)) 100 ml IV . DIRECTED [facility] Last Admin: 05/22/17 05:07 Dose: 100 ml Iopamidol (Isovue-300 (61%)) 125 ml IV . DIRECTED PRN PRN Reason: RADIOLOGY EXAM Stop: 05/27/17 08:01 Last Admin: 05/26/17 08:02 Dose: 125 ml Levothyroxine Sodium (Synthroid) 125 mcg PO DAILY [facility] Last Admin: 05/18/17 21:31 Dose: 125 mcg Lorazepam (Ativan) 1 mg IV Q6H PRN PRN Reason: Nausea/Vomiting Lorazepam (Ativan) 0.5 mg IVPUSH Q4H PRN PRN Reason: Anxiety Last Admin: 05/23/17 23:53 Dose: 0.5 mg Magnesium Citrate (Citrate Of Magnesia) 237 ml PO ONETIME ONE Stop: 05/21/17 09:01 Last Admin: 05/21/17 08:05 Dose: 237 ml Methylprednisolone Acetate (Depo-Medrol) Confirm Administered Dose 80 mg .ROUTE .STK-MED ONE Stop: 05/20/17 10:33 Midazolam HCl (Versed 1 Mg/Ml) Confirm Administered Dose 2 mg .ROUTE .STK-MED ONE Stop: 05/18/17 06:35 Midazolam HCl (Versed 1 Mg/Ml) Confirm Administered Dose 2 mg .ROUTE .STK-MED ONE Stop: 05/20/17 09:50 Neostigmine Methylsulfate (Neostigmine) Confirm Administered Dose 5 mg .ROUTE .STK-MED ONE Stop: 05/20/17 09:49 Ondansetron HCl (Zofran) Confirm Administered Dose 4 mg .ROUTE .STK-MED ONE Stop: 05/20/17 09:49 Oxycodone HCl (Oxycodone) 5 mg PO Q4H PRN PRN Reason: Pain (moderate 4-6) Last Admin: 05/18/17 01:32 Dose: 5 mg Polyethylene Glycol (Miralax) 17 gm PO BID [facility] Last Admin: 05/22/17 20:52 Dose: Not Given Propofol (Diprivan 20 Ml) Confirm Administered Dose 200 mg .ROUTE .STK-MED ONE Stop: 05/18/17 06:34 Propofol (Diprivan 20 Ml) Confirm Administered Dose 200 mg .ROUTE .STK-MED ONE Stop: 05/19/17 09:36 Propofol (Diprivan 20 Ml) Confirm Administered Dose 200 mg .ROUTE .STK-MED ONE Stop: 05/20/17 09:49 Rocuronium [place] (Zemuron) Confirm Administered Dose 50 mg .ROUTE .STK-MED ONE Stop: 05/20/17 09:49 Rocuronium [place] (Zemuron) Confirm Administered Dose 50 mg .ROUTE .STK-MED ONE Stop: 05/20/17 12:13 Sodium Chloride (Saline Flush) 10 ml FLUSH ASDIRECTED PRN PRN Reason: Keep Vein Open Last Admin: 05/22/17 05:06 Dose: 10 ml Sodium Chloride (Saline Flush) 10 ml FLUSH ONETIME ONE Stop: 05/26/17 08:01 Last Admin: 05/26/17 08:02 Dose: 10 ml Succinylcholine Chloride (Succinylcholine In Ns Pf) Confirm Administered Dose 200 mg .ROUTE .STK-MED ONE Stop: 05/20/17 09:49 - Exam Quality Assessment: No: supplemental oxygen General: alert, oriented, cooperative, no acute distress Neck: supple Lungs: Clear to auscultation, Normal respiratory effort, Decreased breath sounds (mild right lung base) Cardiovascular: Regular Rate, Regular Rhythm Abdomen: soft, no distension Extremities: no edema, normal pulses Skin: warm, dry Psy/Mental Status: alert, normal affect - Problem List & Annotations (1) Empyema, right SNOMED Code(s): 94530160 Code(s): J86.9 - PYOTHORAX WITHOUT FISTULA Status: Acute Priority: High Current Visit: Yes - Problem List Review Problem List Initiated/Reviewed/Updated: Yes - My Orders Last 24 Hours: My Active Orders 05/27/17 05:00 BASIC METABOLIC PANEL,BMP [CHEM] Timed CBC W/O DIFF,HEMOGRAM [HEME] Timed (1) - Plan Plan:: ASSESSMENT / PLAN Empyema of right lung - Decortication performed 05/20, resulting in marked improvement in aeration. Vital signs stable, afebrile. Chest tubes were removed this morning. -Cultures growing staph epidermidis and strep viridans -Doxycycline and levofloxacin -continue pulse ox -Supplement oxygen as needed -Follow-up chest x-ray in the morning Bladder outlet obstruction - frequent episodes of urination with elevated post void residual bladder scan -Tamsulosin 0.4 mg by mouth daily (plan to continue for 1 month at hospital discharge) Low-attenuation spleen lesions - large quantity but no obvious symptoms. Differential includes cysts versus hemangiomas versus inflammation versus infiltration versus infection. Follow-up in 4-6 weeks with ultrasound was recommended. Peripheral edema - significantly improved, volume status seems to be fairly appropriate at this time. -Reassess in a.m. Maintenance issues -Nutrition: Regular diet -Gonzales catheter not indicated at this time -DVT: SCD -GI: PPI Disposition - anticipate discharge to home after the hospital stay Primary care provider: Jordin Varner NP, [facility] Erick Arango M.D.
--- NOTE | 2017-05-26 10:42 | CR ---
Chest 1V Frontal HISTORY: Follow-up chest tube. COMPARISON: CT scan 05/22/2017. FINDINGS: 3 right-sided chest tubes. Minimal atelectasis or infiltrate right lung base. Volume loss right hemithorax. No significant pneumothorax no new infiltrates.
--- NOTE | 2017-05-26 11:02 | PN ---
DATE OF SERVICE: 05/25/2017 The patient has been afebrile with stable vital signs. Overall appears to be doing fairly well. Chest tube output has now become minimal. Chest x-ray shows quite a bit in the way of pleural edema, but no significant fluid accumulation. The chest tubes are showing minimal fluctuation. Otherwise, he is clinically stable. We will obtain a CT scan of the abdomen tomorrow with IV contrast to examination of the spleen. The patient does report that he is aware of some abnormalities noted on his spleen previously. We will need to follow this, I think, to make sure there is not some infectious process going on in the spleen. Otherwise, if the chest tube output remains low, we will likely pull those out tomorrow. Jorge Hoffman MD /[id number]
--- NOTE | 2017-05-26 11:02 | CR ---
Chest 1V Frontal HISTORY: Chest tubes. COMPARISON: 05/19/2017. FINDINGS: 2 right-sided chest tubes. Loculated fluid remains in the right chest. No new infiltrates or significant pneumothorax.
--- NOTE | 2017-05-26 11:28 | OR ---
DATE OF PROCEDURE: 05/19/2017 PREOPERATIVE DIAGNOSIS: Loculated empyema, right pleural space. POSTOPERATIVE DIAGNOSIS: Loculated empyema, right pleural space. OPERATIVE PROCEDURE: Right tube thoracostomy (67158). ANESTHESIA: Local plus IV sedation. INDICATION FOR PROCEDURE: Overnight, the patient was noted to have some persistent additional area of empyema present and drained by the chest tube yesterday. An ultrasound was obtained, which showed this to be located in the upper pleural space posteriorly. The plan is to proceed with a second chest tube placement. Potential risks of the procedure including bleeding and injury to underlying lung or chest wall were reviewed, and the patient wishes to proceed. DETAILS OF PROCEDURE: The patient was taken to the operating room and placed in a supine position with the arm extended upward. The right chest and surrounding areas were then prepped and draped. A transverse incision was made at the level of the empyema as identified by ultrasound, and this being somewhat above the nipple. That area was anesthetized with 1% lidocaine mixed with Marcaine. Incision was made and the pleural space was entered. Some additional purulent material was obtained. Upon an initial digital examination and subsequent evacuation of fluid, this was noted to be quite a bit more associated with fibrinous exudate than the fluid obtained yesterday, around 500 additional mL of fluid was obtained. Cultures and cytology were once again obtained. A size 32-Guinean chest tube was placed and sutured to the skin with some 0 Ethibond stitch and dressing applied. Subsequent chest x-rays continued to show some areas that were not drained. At this point, we will leave the [address] If there is additional fluid present tomorrow, we probably are dealing with a multiloculated effusion and would probably benefit from a thoracoscopy for a complete evacuation. This was discussed with the patient's and daughter. The patient was taken to the recovery room in satisfactory condition. Jorge Hoffman MD /[id number]
--- NOTE | 2017-05-26 13:08 | OR ---
CORRECTED COPY DATE OF PROCEDURE: 05/20/2017 PREOPERATIVE DIAGNOSIS: Loculated empyema involving right pleural space. POST OPERATIVE DIAGNOSIS: Loculated empyema right pleural space associated with diffuse fibrinous entrapment right lung and large areas of pleural fibrinous deposits. OPERATIVE PROCEDURE: Right thorocoscopy with a) Evacuation of fibrinous pleural exudates (93959). b) Wedge biopsies of right lower and middle lobes (41397). c) Total pulmonary decortication, including intrapleural pneumonolysis (00556). INDICATION: On chest x-ray this morning, the patient still has a large area of undrained fluid in the right pleural space. Given this, he appeared to have multiloculated empyema and, I think, he would be best served by thoracoscopy with full evacuation of the fibrinous exudate and decortication as indicated for more expansion of the lung. He still has a quite a bit of volume loss present on the right side despite most of the empyema fluid being removed, which would likely indicate that the lung is somewhat entrapped by the fibrinous material as well. The plan is to proceed with a right thoracoscopy, thoracotomy if necessary, and evacuation of pleural space. Depending on the operative findings, we may do some wedge biopsies of the lung for diagnostic purposes. Potential risks of the procedure including bleeding, infection, injury to the lung or chest wall as well as possibility of cardiopulmonary, septic, or hemorrhagic complications leading to were discussed, and the patient wishes to proceed. DETAILS OF PROCEDURE: The patient was taken to the operating room and after general endotracheal anesthetic with double-lumen endotracheal tube was induced, a Gonzales catheter was inserted. The patient was placed in the left lateral decubitus position. The previous chest tubes were then removed at this time, and the right chest surrounding areas were prepped and draped. Using the original chest tube hole, which was just above the diaphragm laterally, the 12-mm trocar was placed and the thoracoscope inserted. The pleural space was filled with 7 mmHg pressure with CO2 and a single-lung dilation was undertaken. This did result in a reasonable decompression of the lung. Eventually, 2 additional trocars were placed, one 12-mm trocar placed in the second chest tube site from yesterday, and a third 5-mm trocar placed in the posterior midchest. The patient was noted to have very extensive fibrinous exudate involving cover of both the visceral and parietal pleura with developing fibrous entrapment of the lung, particularly in the apex of the lung posteriorly and laterally, there was a large area of fibrinous pleural exudate. This appeared to be the material which was still seen on chest x-ray today. This was separately evacuated, and this came out as large segments of gelatinous-type material with a jelly-like consistency. Once this was evacuated and cultures were obtained from that area, the patient was noted again to have an almost complete entrapment of the lung by evolving fibrinous capsule. A portion of this was fairly soft, although painstakingly slow. This was all eventually evacuated off the lung. The chest wall similarly was coated with this material, and this was then also evacuated off the parietal pleura as well. All of this material was sent for histologic evaluation. The lung appeared to not have any obvious masses per se. Wedge resections of the lower tip of the right lower lobe and right middle lobe were then undertaken with EMANUEL kenzie to find some read of the lung status in the event that we were not dealing with some unusual lung pathology. These were then delivered from the field and sent for histologic evaluation. At this point, no further problems were noted. The pleural space was irrigated with Zyvox- containing saline solution, the latter being chosen due to the original cultures showing a coag-negative staph with sensitivities still pending. A total of 3 chest tubes were then placed, one right-angled 36 chest tube and then two straight 32 chest tubes. These were sutured to skin with some 0 Ethibond stitch. At that point, the patient had the lung re-expanded with double-lumen ventilation and dressing applied. A chest x-ray showed good evacuation of all areas of the pleural space and a significant improvement in the volume loss compared to the preoperative status. The patient was extubated and taken to the recovery room in a satisfactory condition. Jorge Hoffman MD /[id number]
--- NOTE | 2017-05-26 16:25 | OR ---
DATE OF PROCEDURE: 05/18/2017 PREOPERATIVE DIAGNOSIS: Right empyema. POSTOPERATIVE DIAGNOSIS: Right empyema. OPERATIVE PROCEDURE: Right tube thoracostomy (75502). ANESTHESIA: Local plus IV sedation. INDICATION FOR PROCEDURE: This 76-year-old presenting with what appears to be an empyema involving the right pleural space. Plan is to proceed with a tube thoracostomy. Potential risks of the procedure including bleeding, infection, injury to underlying lung or chest wall were all reviewed, and the patient wishes to proceed. DESCRIPTION OF PROCEDURE: The patient was taken to the operating room and with the right arm abducted up toward the head the right chest wall was prepped and draped. IV sedation was administered and the area distal lateral to the nipple was then anesthetized with some 1 % lidocaine mixed with Marcaine. Transverse incision was made and the overlying interspace was then entered, somewhat purulent fluid was then encountered. A size 36-Wolof chest tube was then placed without difficulty. Around 600 mL of fluid was evacuated and this was sent for cultures as well as cytology and the tube was sutured to skin with some 0 Ethibond stitch and dressing applied. Subsequent chest x-ray showed some persistent fluid. Rather than place the second chest tube at this time, we will see if this eventually evacuates over the next 24 hours. If it fails to we'll need to most likely get an ultrasound and place a second chest tube. Otherwise, the patient tolerated the procedure well, and was taken to the recovery room in satisfactory condition. Jorge Hoffman MD /[id number]
[2017-05-26] MEDS: Melatonin 3 MG Tab PO SCH (20:44)
[2017-05-26] MEDS: Levofloxacin/Dextrose 5%-Water 750 MG in Premix Bag 1 BAG IV SCH (20:44)
[2017-05-27] MEDS: HYDROmorphone 2 MG Tab PO PRN ×3 (02:46→09:17)
[2017-05-27] MEDS: Levothyroxine 100 MCG, Levothyroxine 25 MCG PO SCH ×2 (07:38)
[2017-05-27 07:53] VITALS: BP 127/80
--- NOTE | 2017-05-27 09:29 | CR ---
Chest 2V HISTORY: Chest tube removal COMPARISON: 05/26/2017. FINDINGS: The 3 right-sided chest tubes have been removed. Stable volume loss right hemithorax. Tiny effusion. Stable density at right lung base likely representing atelectatic change. Left lung is cl ear. Stable nodule peripheral left midlung zone this was seen on CT scan 05/22/2017. I do not see significant residual pneumothorax
--- NOTE | 2017-05-29 09:04 | PN ---
DATE OF SERVICE: 05/26/2017 The patient has been afebrile with stable vital signs. Chest tube output has been relatively minimal with 65 mL out in each of the tube Pleur-Evacs. Given this, the chest tubes were pulled today. We will obtain a CT scan of the abdomen to look at the spleen again today and otherwise continue the antibiotics, and he may be ready for discharge home tomorrow. Jorge Hoffman MD /[id number]
--- NOTE | 2017-05-29 09:34 | DISCH ---
FINAL DIAGNOSES: 1. Loculated right empyema associated with a diffuse fibrinous entrapment of the lung and the large areas of pleural fibrinous deposits. 2. Probable underlying pneumonia. OPERATIVE PROCEDURE: 1. On 05/18, insertion of right chest tube. 2. On 05/19, insertion of second right chest tube. 3. On 05/20, right thoracoscopy with: a. Evacuation of fibrous pleural exudate. b. Wedge biopsies of right lower lobe and right middle lobe. c. Total pulmonary decortication, including intrapleural pneumonolysis. SUMMARY: This 76-year-old male is presenting with worsening shortness of breath. By history this has been going on for probably more than two weeks. The patient was noted to have an empyema, along with probable underlying pneumonia. Initially, a chest tube was placed on 05/18, which partially evacuated the fluid. A second chest tube was placed on 05/19, which likewise evacuated some more, but by the following day, there was still quite a bit of undrained fluid or material in the right pleural space. Thoracoscopy was then done on 05/20, which showed diffuse fibrinous entrapment of the lung, along with larger areas of fibrinous deposits. The patient underwent decortication procedure, along with removal of fibrinous material. Wedge biopsies of the lung were obtained, and the results of those are pending. Post thoracoscopy, the patient has done very well with the patient having some mild atelectasis and small amount of pleural fluid present, but overall the lung is well expanded. Cultures are growing Staph epidermidis, along with Strep viridans, and the patient has no obvious other sources of the infection. 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 Following discharge, the patient will be sent home with a course of Cipro 500 mg b.i.d. x10 days, along with Dilaudid for pain. He will be receiving Dilaudid 2-4 mg q.4 hours p.r.n. pain #50, be instructed to change his chest tube dressing sites daily with taking shower, and follow with Dr. Hoffman, [facility] on 06/04 with a chest x-ray at that time.
== END 2017-05-27 09:35 | disposition home or self-care (01) | DRG 163 ==
LOC: JP.ED 19:38 → UNDOADMIN 22:23 → JP.MS 22:23 → UNDODISIN 05-27 09:35
PROVIDERS: ADMIT Internal Medicine; ATTEND Internal Medicine
PROC: 0W9930Z Drainage of Right Pleural Cavity with Drainage Device, Percutaneous Approach (ICD-10-PCS; principal; 2017-05-18)
PROC: 0W9930Z Drainage of Right Pleural Cavity with Drainage Device, Percutaneous Approach (ICD-10-PCS; 2017-05-19)
PROC: 0BDN4ZZ Extraction of Right Pleura, Percutaneous Endoscopic Approach (ICD-10-PCS; 2017-05-20)
PROC: 0BBF4ZX Excision of Right Lower Lung Lobe, Percutaneous Endoscopic Approach, Diagnostic (ICD-10-PCS; 2017-05-20)
PROC: 0BBD4ZX Excision of Right Middle Lung Lobe, Percutaneous Endoscopic Approach, Diagnostic (ICD-10-PCS; 2017-05-20)
DX: J43.9 Emphysema, unspecified (principal); J86.9 Pyothorax without fistula; J18.9 Pneumonia, unspecified organism; M19.90 Unspecified osteoarthritis, unspecified site; E03.9 Hypothyroidism, unspecified; B95.8 Unspecified staphylococcus as the cause of diseases classified elsewhere; Z87.891 Personal history of nicotine dependence; N32.0 Bladder-neck obstruction; R60.0 Localized edema; D73.89 Other diseases of spleen; R19.7 Diarrhea, unspecified; R35.0 Frequency of micturition
CPT/HCPCS: 36415; 36600; 71010 ×2; 71250; 80053; 81001; 82150; 82550; 82803; 83605; 83690; 83880; 84484; 85025; 86140; 87040 ×2; 93005; 93010; 96361; 96365; 99285; J1956; J7040; 71020; 71020-26; 71260; 71260-26; 74177; 74177-26; 80048; 83735; 84100; 85027; 87015; 87070; 87075; 87077; 87102; 87116; 87186; 87205; 87206; 87493; 88112; 88305; 88307; 88341; 88342; 94762; 97110-GP; 97116-GP; 97162-GP; 97530-GP; A9270-GY; J1030; J1100; J1170; J1940; J2020; J2060; J2250; J2405; J2543; J2704; J3010; J7030; J7042; J7050; J7120; Q9967

== ENCOUNTER 2017-06-27 10:27 | Emergency (ER) | payer MEDICARE, BC ==
--- NOTE | 2017-06-27 11:13 | EDM.PDOC ---
ED HPI GENERAL MEDICAL PROBLEM - General Chief Complaint: Respiratory Problem Stated Complaint: SOB/HAD LUNG SURGERY IN MAY Time Seen by Provider: 06/27/17 11:04 Source of Information: Reports: Patient, RN Notes Reviewed History Limitations: Reports: No Limitations - History of Present Illness INITIAL COMMENTS - FREE TEXT/NARRATIVE: 77-year-old gentleman presents emergency department today with a complaint of shortness of breath, he states is been short of breath for the last 2 days denies any fever no chest pain no GI symptomatology he recently had an empyema status post evacuation one month ago - Related Data Allergies Allergy/AdvReac Type Severity Reaction Status Date / Time albuterol AdvReac Tachycardia Verified 06/27/17 10:51 Home Meds: Home Meds Levothyroxine [Synthroid] 125 mcg PO ASDIRECTED 08/06/14 [History] Cyclobenzaprine [Flexeril] 10 mg PO TID 05/17/17 [History] Diclofenac Potassium [Diclofenac Potassium] 50 mg PO TID 05/17/17 [History] Ciprofloxacin HCl [Cipro] 500 mg PO BID #20 tablet 05/27/17 [Rx] HYDROmorphone [Dilaudid] 2 - 4 mg PO Q4H PRN #50 tablet 05/27/17 [Rx] Azithromycin [IMW: Azithromycin] 250 mg PO DAILY #6 tab 06/27/17 [Rx] Past Medical History HEENT History: Reports: Impaired Vision Other HEENT History: [place] Other Respiratory History: "INFECTION IN MY LUNG", PLEURAL TAP MAY 2017 Musculoskeletal History: Reports: Arthritis Other Musculoskeletal History: hips. 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 Denies: Cough, Sputum Cardiovascular: Reports: No Symptoms GI/Abdominal: Reports: No Symptoms : Reports: No Symptoms Musculoskeletal: Reports: No Symptoms Skin: Reports: No Symptoms ED EXAM, GENERAL - Physical Exam Exam: See Below Free Text/Narrative:: General: Male, not in any distress, alert and oriented x3 HEENT: head is atraumatic normocephalic, eyes pupils equal round reactive to light, sclera clear no conjunctivitis appreciated. Ears tympanic membranes clear and tan landmarks and light reflex are present bilaterally canals are clear. Nose no septal deviation, nares are clear, no blood present. Mouth mucosa is moist and pink no erythema or exudate noted in soft palate, tongue is midline uvula is midline, dentition is intact. Neck: Supple no thyromegaly no tracheal deviation. Nodes: Cervical nodes subclavicular nodes nontender no palpable lymphadenopathy noted. Lungs: clear to auscultation bilaterally with symmetrical respirations, no adventitious noise appreciated. CV: Regular rate and rhythm S1 and S2 appreciated no murmurs rubs or gallops noted. Abdomen: Soft, nontender, no palpable masses or organomegaly appreciated, no distention no guarding bowel sounds are present, . Neuro: Cranial nerves II through XII grossly intact Skin: Warm and dry, intact Extremities: No lower extremity edema appreciated, Course - Vital Signs Last Recorded V/S: Last Vital Signs Temp 96.7 F 06/27/17 12:07 Pulse 70 06/27/17 12:07 Resp 16 06/27/17 12:07 BP 145/70 H 06/27/17 12:07 Pulse Ox 97 06/27/17 12:07 - Orders/Labs/Meds Orders: Active Orders 24 hr Category Date Time Status Cardiac Monitoring [RC] .As Directed Care 06/27/17 11:10 Active EKG Documentation Completion [RC] ASDIRECTED Care 06/27/17 11:10 Active EKG 12 Lead [EK] Stat Ther 06/27/17 11:10 Ordered Labs: Laboratory Tests 06/27/17 06/27/17 06/27/17 Range/Units 11:09 11:26 11:26 WBC 8.6 (4.5-11.0) K/uL RBC 4.21 L (4.30-5.90) M/uL Hgb 13.0 (12.0-15.0) g/dL Hct 40.3 (40.0-54.0) % MCV 96 (80-98) fL MCH 31 (27-31) pg MCHC 32 (32-36) % Plt Count 196 (150-400) K/uL Neut % (Auto) 65 (36-66) % Lymph % (Auto) 23 L (24-44) % [place] % (Auto) 9 H (2-6) % Eos % (Auto) 3 (2-4) % Baso % (Auto) 1 (0-1) % Sodium 141 (140-148) mmol/L Potassium 4.5 (3.6-5.2) mmol/L Chloride 108 (100-108) mmol/L Carbon Dioxide 31 (21-32) mmol/L Anion Gap 2.5 L (5.0-14.0) mmol/L BUN 17 (7-18) mg/dL Creatinine 1.0 (0.8-1.3) mg/dL Est Cr Clr Drug Dosing 62.84 mL/min Estimated GFR (MDRD) > 60 (>60) Glucose 102 (74-106) mg/dL Lactic Acid 1.2 (0.4-2.0) mmol/L Calcium 9.0 (8.5-10.1) mg/dL Total Bilirubin 0.6 (0.2-1.0) mg/dL AST 17 (15-37) U/L ALT 16 (12-78) U/L Alkaline Phosphatase 97 (46-116) U/L Troponin I < 0.017 (0.000-0.056) ng/mL Total Protein 7.5 (6.4-8.2) g/dL Albumin 3.2 L (3.4-5.0) g/dL Globulin 4.3 H (2.3-3.5) g/dL Albumin/Globulin Ratio 0.7 L (1.2-2.2) Departure - Departure Time of Disposition: 12:31 Disposition: Home, Self-Care 01 Condition: Good Clinical Impression: CAP (community acquired pneumonia) Qualifiers: Laterality: right Lung location: lower lobe of lung Qualified Code(s): J18.1 - Lobar pneumonia, unspecified organism - Discharge Information Prescriptions: Azithromycin [IMW: Azithromycin] 250 mg PO DAILY #6 tab Forms: ED Department Discharge Additional Instructions: Take full course of antibiotics, Please followup with your primary care provider in 3-5 days if not better, please call return to the emergency department with worsening of symptoms. - My Orders Last 24 Hours: My Active Orders 06/27/17 11:10 Cardiac Monitoring [RC] .As Directed EKG Documentation Completion [RC] ASDIRECTED EKG 12 Lead [EK] Stat - Assessment/Plan Last 24 Hours: My Active Orders 06/27/17 11:10 Cardiac Monitoring [RC] .As Directed EKG Documentation Completion [RC] ASDIRECTED EKG 12 Lead [EK] Stat Plan: Assessment Acuity = acute Site and laterality = probable community-acquired pneumonia Etiology = probable bacterial cause Manifestations = dyspnea Location of injury = Home Lab values = CBC, CMP unremarkable chest x-ray shows slight infiltrate right basilar area from prior chest x-ray, EKG demonstrates a normal sinus rhythm without any ST changes Plan I did review lab work and chest x-ray and EKG results with him elected to treat empirically with azithromycin 5 day course of Z-Rafael transmitted to [facility] follow-up primary care 3-5 days if no improvement Patient was in agreement with the plan all questions were answered, they were instructed to return to the emergency department or call for worsening symptoms. This note was dictated using [employer] voice recognition software please call with any questions.
[2017-06-27 12:08] VITALS: BP 145/70
--- NOTE | 2017-06-27 12:08 | CR ---
Chest 2V INDICATION: sob COMPARISON: 05/27/2017 FINDINGS: Two views. Heart size normal. Slight increase in right basilar infiltrate. Right pleura l effusion or pleural thickening stable. Left lung clear. IMPRESSION: Slight increased right basilar infiltrate. Right pleural effusion unchanged.
== END 2017-06-27 12:51 | disposition home or self-care (01) ==
LOC: JP.ED 10:27
DX: J18.9 Pneumonia, unspecified organism (principal); M19.90 Unspecified osteoarthritis, unspecified site; E03.9 Hypothyroidism, unspecified; Z87.891 Personal history of nicotine dependence; Z79.2 Long term (current) use of antibiotics; Z88.8 Allergy status to other drugs, medicaments and biological substances
CPT/HCPCS: 36415; 71020; 71020-26; 80053; 83605; 84484; 85025; 93005; 93010; 99284; 99285-25

== ENCOUNTER 2017-10-07 22:37 | Emergency (ER) | payer MEDICARE, BC ==
[2017-10-07 23:04] VITALS: BP 171/85
--- NOTE | 2017-10-07 23:35 | EDM.PDOC ---
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 No history of DVT or PE He is concerned about having a blood clot. No recent injury or fall Left Leg Pain Score (Numeric/FACES): 5 - Related Data Allergies Allergy/AdvReac Type Severity Reaction Status Date / Time albuterol AdvReac Tachycardia Verified 10/07/17 23:08 Home Meds: Home Meds Levothyroxine [Synthroid] 125 mcg PO ASDIRECTED 08/06/14 [History] Cholecalciferol (Vitamin D3) [Vitamin D3] 2,000 unit PO DAILY 10/06/17 [History] Cyanocobalamin (Vitamin B-12) [Vitamin B-12] 1,000 mcg PO DAILY 10/06/17 [ History] Lutein/Zeaxanthin [Ocuvite Lutein 25-5 mg Softgel] 1 cap PO DAILY 10/06/17 [ History] Enoxaparin Sodium [Lovenox] 120 mg SQ DAILY 7 Days #7 ml 10/08/17 [Rx] Past Medical History HEENT History: Reports: Impaired Vision Other HEENT History: [place] Other Respiratory History: "INFECTION IN MY LUNG", PLEURAL TAP MAY 2017 Musculoskeletal History: Reports: Arthritis Other Musculoskeletal History: L hip pain. bulging disc back Endocrine/Metabolic History: Reports: Hypothyroidism - Infectious Disease History Infectious Disease History: Reports: Chicken Pox, Mumps Social & Family History - Tobacco Use Smoking Status *Q: Never Smoker Years of Tobacco use: 10 Used Tobacco, but Quit: Yes Month Tobacco Last Used: 50 YEARS AGO Second Hand Smoke Exposure: No - Caffeine Use Caffeine Use: Reports: Coffee, Soda, Tea - Alcohol Use Days Per Week of Alcohol Use: 0 - Recreational Drug Use Recreational Drug Use: No - Living Situation & Occupation Living situation: Reports: Occupation: Retired (lives with of 50+ years, 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[employer].) Review of Systems - Review of Systems Review Of Systems: See Below Constitutional: Reports: No Symptoms Eyes: Reports: No Symptoms Mouth/Throat: Reports: No Symptoms Respiratory: Reports: No Symptoms Cardiovascular: Reports: No Symptoms GI/Abdominal: Reports: No Symptoms Musculoskeletal: Reports: Joint Pain (left hip), Other (swelling/edema below the left knee to the foot) Skin: Reports: No Symptoms Neurological: Reports: No Symptoms ED EXAM, GENERAL - Physical Exam Exam: See Below Exam Limited By: No Limitations General Appearance: Alert, Mild Distress, Other (elevated blood pressure otherwise vital signs normal) Eye Exam: Bilateral Eye: Normal Inspection Head: Atraumatic, Normocephalic Neck: Non-Tender Respiratory/Chest: No Respiratory Distress, Lungs Clear, No Accessory Muscle Use Cardiovascular: Normal Peripheral Pulses, Regular Rate, Rhythm Extremities: Normal Capillary Refill, Pedal Edema, Other (mild edema left foot and garner, both legs equally warm, normal dorsal pedal pulse) Neurological: Oriented, Normal Cognition Psychiatric: Normal Affect, Normal Mood Skin Exam: Warm, Dry, Intact Lymphatic: No Adenopathy Course - Vital Signs Last Recorded V/S: Last Vital Signs Temp 35.3 C 10/07/17 23:07 Pulse 92 10/07/17 23:07 Resp 14 10/07/17 23:07 BP 171/85 H 10/07/17 23:07 Pulse Ox 95 10/07/17 23:07 - Orders/Labs/Meds Orders: Active Orders 24 hr Category Date Time Status VL Duplex Lwr Ext Veins Ltd Lt [US] Stat Exams 10/08/17 00:15 Taken Meds: Medications Discontinued Medications Generic Name Dose Route Start Last Admin Trade Name Freq PRN Reason Stop Dose Admin Enoxaparin Sodium 120 mg 10/08/17 01:01 Lovenox SUBCUT 10/08/17 01:02 ONETIME ONE - Re-Assessments/Exams Free Text/Narrative Re-Assessment/Exam: 10/07/17 23:40 77-year-old male with left femoral head necrosis, scheduled for upcoming hip surgery, presenting with new swelling and pain in the left lower extremity below the knee Differential diagnosis includes swelling due to the pre-existing condition, DVT , fluid retention. Does not have the appearance of infection or cellulitis. Venous Doppler left leg Departure - Departure Time of Disposition: 01:20 Disposition: Home, Self-Care 01 Condition: Good Clinical Impression: Deep vein thrombosis (DVT) of left lower extremity Qualifiers: Affected thrombotic vein of extremity: iliac Chronicity: acute Qualified Code(s ): I82.422 - Acute embolism and thrombosis of left iliac vein - Discharge Information Prescriptions: Enoxaparin Sodium [Lovenox] 120 mg SQ DAILY 7 Days #7 ml Instructions: Deep Vein Thrombosis Referrals: Jordin Varner NP [Primary Care Provider] - Forms: ED Department Discharge Additional Instructions: you have extensive deep vein thrombosis ("blood clot")of your left leg from the foot up to the groin This does Butchart risk for blood clot in the lung and for this reason you need to go on blood anticoagulants ("blood thinners") Please contact your clinic in the morning to arrange for follow-up appointment today. He will need to continue taking Lovenox and started on a new oral anticoagulant at the clinic issues to be discussed include choice of oral medication and starting this, follow-up appointments, how to give anticoagulants, cautions to take, and whether/when to do your hip surgery. Get rechecked promptly if you develop sharp chest pains or difficulty breathing or sudden severe weakness/fainting/collapse - My Orders Last 24 Hours: My Active Orders 10/08/17 00:15 Duplex Lwr Ext Veins Ltd Lt [US] Stat - Assessment/Plan Last 24 Hours: My Active Orders 10/08/17 00:15 Duplex Lwr Ext Veins Ltd Lt [US] Stat
[2017-10-08] MEDS ORDERED: Enoxaparin 120 MG/0.8 ML Syringe SUBCUT ONE (01:01)
== END 2017-10-08 01:19 | disposition home or self-care (01) ==
LOC: JP.ED 22:37
DX: I82.422 Acute embolism and thrombosis of left iliac vein (principal); E03.9 Hypothyroidism, unspecified; Z87.891 Personal history of nicotine dependence; Z79.899 Other long term (current) drug therapy
CPT/HCPCS: 93971; 96372; 99284; J1650

== ENCOUNTER 2022-06-20 05:56 | Day surgery (SDC) | payer MEDICARE ==
[2022-06-20] MEDS ORDERED: Sodium Chloride 0.9% 10 ML Syringe FLUSH ONE (06:30)
[2022-06-20 07:49] VITALS: PULSE 76
[2022-06-20 07:54] VITALS: BP 189/89
== END 2022-06-20 08:16 | disposition home or self-care (01) ==
LOC: JP.SDS 05:56
PROVIDERS: ATTEND Ophthalmology
DX: H25.12 Age-related nuclear cataract, left eye (principal); J45.909 Unspecified asthma, uncomplicated; Z88.8 Allergy status to other drugs, medicaments and biological substances
CPT/HCPCS: 66984; J3490; V2632

== ENCOUNTER 2022-07-04 05:57 | Day surgery (SDC) | payer MEDICARE ==
[2022-07-04 06:16] VITALS: PULSE 73
[2022-07-04] MEDS ORDERED: Sodium Chloride 0.9% 10 ML Syringe FLUSH PRN (06:30)
[2022-07-04 07:47] VITALS: BP 186/95
== END 2022-07-04 07:48 | disposition home or self-care (01) ==
LOC: JP.SDS 05:57
PROVIDERS: ATTEND Ophthalmology
DX: H25.11 Age-related nuclear cataract, right eye (principal); E03.9 Hypothyroidism, unspecified; Z88.8 Allergy status to other drugs, medicaments and biological substances
CPT/HCPCS: 66984; J3490; V2632